=== PATIENT | female | born 1985 | race Caucasian/White ===

== ENCOUNTER 2016-10-01 20:22 | Inpatient (IN) | payer OTHER ==
[2016-10-01] MEDS ORDERED: SODIUM CHLORIDE 1,000 ML IV STA (20:40)
[2016-10-01] MEDS ORDERED: KETOROLAC TROMETHAMINE 30 MG/1 ML VIAL IVPUSH ONE (20:40)
--- NOTE | 2016-10-01 20:43 | PDOC ---
History of Present Illness - History of Present Illness Initial Comments: 10/01/16 20:43 Patient is a 31 year old female with significant medical hx of myocardial bridge who is presenting to the ED with constant, severe lower abdominal pain since she woke up this morning. The patient reports that her pain exists at all times and worsens with movement. She describes her pain as "excruciating" and is non-radiating. The patient also endorses nausea and several episodes of vomiting. Patient denies fever, chills, diarrhea, blood in stool, or black stools. The patient recently had a wisdom tooth extracted and has been taking antibiotics and prescribed pain relievers since her surgery, including Motrin and Vicodin. The patient has a history of six miscarriages and IVF (05/2016) that included freezing her embryos. She endorses having many gynecological evaluations. <Lulu Rhodes - Last Filed: 10/01/16 21:00> <Neymar Soaers - Last Filed: 10/02/16 03:34> - General Chief Complaint: Pain Stated Complaint: VOMITING, ABD PAIN Time Seen by Provider: 10/01/16 20:26 Past History <Lulu Rhodes - Last Filed: 10/01/16 21:00> - Surgical History Abdominal Surgery: Yes (HERNIA REPAIR) - Reproductive History (#): 2 - Immunization History Immunization Up to Date: No - Psycho/Social/Smoking Cessation Hx Anxiety: No Suicidal Ideation: No Smoking Status: No Smoking History: Current every day smoker Have you smoked in the past 12 months: Yes Number of Cigarettes Smoked Daily: 20 Information on smoking cessation initiated: Yes 'Breaking Loose' booklet given: 10/01/16 Hx Alcohol Use: (rare) <Neymar Soares - Last Filed: 10/02/16 03:34> - Past Medical History Allergies/Adverse Reactions: Allergies Allergy/AdvReac Type Severity Reaction Status Date / Time No Known Allergies Allergy Verified 04/05/14 20:03 Home Medications: Ambulatory Orders No Home Medications 0 dose .ROUTE UTDICT 03/03/13 Amoxicillin/Potassium Clav [Augmentin 875-125 Tablet] 1 each PO BID #20 tablet 10/01/16 Metronidazole [Flagyl -] 500 mg PO TID #30 tablet 10/01/16 Review of Systems - Review of Systems Comments:: 10/01/16 20:48 GENERAL/CONSTITUTIONAL: No fever or chills. No weakness. HEAD, EYES, EARS, NOSE AND THROAT: No change in vision. No ear pain or discharge. No sore throat. CARDIOVASCULAR: No chest pain or shortness of breath. GASTROINTESTINAL: Lower abdominal pain, nausea, vomiting. No diarrhea or constipation. MUSCULOSKELETAL: No joint or muscle swelling or pain. No neck or back pain. SKIN: No rash NEUROLOGIC: No headache, vertigo, loss of consciousness, or change in strength/ sensation. <Lulu Rhodes - Last Filed: 10/01/16 21:00> *Physical Exam - Vital Signs Last Vital Signs Temp Pulse Resp BP Pulse Ox 100.5 F H 102 H 20 122/64 98 10/01/16 20:22 10/01/16 20:22 10/01/16 20:22 10/01/16 20:22 10/01/16 20:22 <Lulu Rhodes - Last Filed: 10/01/16 21:00> - Vital Signs Last Vital Signs Temp Pulse Resp BP Pulse Ox 100.5 F H 102 H 20 122/64 98 10/01/16 20:22 10/01/16 20:22 10/01/16 20:22 10/01/16 20:22 10/01/16 20:22 - Physical Exam General Appearance: Yes: Nourished, Appropriately Dressed. No: Apparent Distress HEENT: positive: Normal ENT Inspection Respiratory/Chest: positive: Lungs Clear, Normal Breath Sounds. negative: Respiratory Distress Cardiovascular: positive: Regular Rhythm, Regular Rate, Tachycardia Gastrointestinal/Abdominal: positive: Normal Bowel Sounds, Tender (SUPRAPUBIC AND LLQ. +REBOUND NO GUARDING), Soft, Other (NO ROVSING'S. NO PSOAS/OBTURATOR) Extremity: positive: Normal Capillary Refill Integumentary: positive: Normal Color Neurologic: positive: Fully Oriented, Alert, Normal Mood/Affect, Normal Response , Motor Strength 5/5 <Neymar Soares - Last Filed: 10/02/16 03:34> ED Treatment Course - LABORATORY CBC & Chemistry Diagram: 10/01/16 20:44 10/01/16 20:44 <Lulu Rhodes - Last Filed: 10/01/16 21:00> - LABORATORY CBC & Chemistry Diagram: 10/01/16 20:44 10/01/16 20:44 - RADIOLOGY Radiology Studies Ordered: Category Date Time Status ABDOMEN & PELVIS CT W/O CONTR [CT] Stat CT Scan 10/01/16 20:40 Ordered <Neymar Soares - Last Filed: 10/02/16 03:34> Progress Note - Progress Note Progress Note: DIVERTICULITIS W/O PERF OR ABSCESS WBC 20K PT FEELS BETTER. KARTHIKEYAN PO. WANTS TO GO HOME AND WILL SEE DR. TOMLINSON ON TUESDAY OR RETURN PRN 12:38 AM PT RETURNS C/O VOMITING. WILL ADMIT FOR PAIN CONTROL, ABX, AND IVF 1:32 [address]NABLE TO CONTACT DR[address] TOMLINSON. PT ADMITTED TO HOSPITALIST SERVICE (DR. GALLO) 3:[address] TOMLINSON CALLED AND ASSUMED CARE OF PATIENT HOSPITALIST INFORMED <Neymar Soares - Last Filed: 10/02/16 03:34> *DC/Admit/Observation/Transfer - Attestations Scribe Attestion: 10/01/16 20:49 Documentation prepared by Lulu Rhodes, acting as medical records manager for Neymar Soares MD. <Lulu Rhodes - Last Filed: 10/01/16 21:00> - Discharge Dispostion Admit: Yes <Neymar Soares - Last Filed: 10/02/16 03:34> Diagnosis at time of Disposition: Diverticulitis Qualifiers: Diverticulitis site: large intestine Diverticulitis bleeding: without bleeding Diverticulitis complication: without perforation or abscess Qualified Code(s): K57.32 - Diverticulitis of large intestine without perforation or abscess without bleeding - Discharge Dispostion Condition at time of disposition: Improved - Prescriptions - Patient Instructions - Post Discharge Activity
[2016-10-01] MEDS ORDERED: KETOROLAC TROMETHAMINE 30 MG/1 ML VIAL ONE (20:48)
[2016-10-01 20:57] LABS: MCH 31.5 pg (25.7-33.7); MCHC 35.5 g/dl (32.0-36.0); MEAN CELL VOLUME 88.9 fl (80-96); MEAN PLT VOLUME 10.1 fl (7.5-11.1); PLATELET COUNT 280 K/MM3 (134-434); RDW 11.3 % (11.6-15.6); WHITE BLOOD COUNT 21.6 K/mm3 (4.0-10.0)
[2016-10-01 21:03] LABS: CALCIUM 9.4 mg/dl (8.4-10.2); CREATININE 0.8 mg/dl (0.6-1.3)
[2016-10-01] MEDS ORDERED: metroNIDAZOLE 250 MG TABLET ONE (22:34)
[2016-10-01] MEDS ORDERED: AMOX TR/POT CLAV 875MG/125MG TABLETS (FP) ONE (22:34)
[2016-10-01] MEDS ORDERED: AMOX TR/POT CLAV 875MG/125MG TABLETS (FP) PO ONE (22:34)
[2016-10-01] MEDS ORDERED: metroNIDAZOLE 250 MG TABLET PO ONE (22:34)
[2016-10-02] MEDS ORDERED: ONDANSETRON 4 MG/2 ML VIAL IVPUSH ONE (00:54)
[2016-10-02] MEDS ORDERED: SODIUM CHLORIDE 1,000 ML IV STA (00:54)
[2016-10-02] MEDS ORDERED: PIPERACILLIN/TAZOB 3.375 GM/50 ML PRE-DOCKED IV ONE (00:55)
[2016-10-02] MEDS ORDERED: PIPERACILLIN/TAZOBACTAM 3.375 GM VIAL IVPB ONE (01:08)
[2016-10-02] MEDS ORDERED: ONDANSETRON 4 MG/2 ML VIAL ONE (01:08)
[2016-10-02] MEDS ORDERED: ACETAMINOPHEN INJECTION 100 ML IVPB ONE (01:45)
[2016-10-02] MEDS ORDERED: ACETAMINOPHEN 1000 MG/100 ML VIAL (NON FORMULARY) IVPB ONE (01:49)
[2016-10-02] MEDS ORDERED: HYDROmorphone HCL CARPU-JECT 1 MG/1 ML DISP.SYRIN IVPUSH PRN (03:27)
[2016-10-02] MEDS ORDERED: ACETAMINOPHEN 325 MG TABLET (FP) PO PRN (03:27)
[2016-10-02] MEDS: D5-1/2NS+20 MEQ KCL - 1,000 ML IV SCH (04:00)
[2016-10-02 04:23] VITALS: BMI 37.8
[2016-10-02 07:15] LABS: PH,URINE 6.5 (4.5-8); URINE BILIRUBIN Negative (NEGATIVE); URINE BLOOD Negative (NEGATIVE); URINE GLUCOSE (UA) Negative (NEGATIVE); URINE KETONE Negative (NEGATIVE); URINE NITRITE Negative (NEGATIVE); URINE PROTEIN Negative (NEGATIVE); URINE UROBILINOGEN 0.2 E.U/dl (0.2-1.0)
[2016-10-02 07:16] LABS: URINE APPEARANCE SL CLOUDY; URINE COLOR AMBER; URINE LEUK ESTERASE 1+ (NEGATIVE)
[2016-10-02 07:53] LABS: BASOPHIL 0.2 % (0-2.0); EOSINOPHIL 0.7 % (0-4.5); MCH 31.9 pg (25.7-33.7); MCHC 35.5 g/dl (32.0-36.0); MEAN CELL VOLUME 89.8 fl (80-96); MEAN PLT VOLUME 8.7 fl (7.5-11.1); NEUTROPHILS 77.8 % (42.8-82.8); PLATELET COUNT 207 K/MM3 (134-434); RDW 11.1 % (11.6-15.6); WHITE BLOOD COUNT 15.2 K/mm3 (4.0-10.0)
[2016-10-02] MEDS: PIPERACILLIN/TAZOB 3.375 GM/50 ML PRE-DOCKED IVPB SCH ×2 (10:16→17:15)
[2016-10-02] MEDS: METRONIDAZOLE 500 MG PREMIXED 100 ML IVPB SCH ×3 (10:16→21:04)
[2016-10-02] MEDS: HEPARIN NA (PORCINE) 5,000 UNITS/ML 1ML VIAL SQ SCH ×2 (10:16→21:04)
--- NOTE | 2016-10-02 11:02 | PN ---
Progress Note, Physician History of Present Illness: 31 year old female with significant medical hx of myocardial bridge who is presenting to the ED with constant, severe lower abdominal pain since she woke up this morning. The patient reports that her pain exists at all times and worsens with movement. She describes her pain as "excruciating" and is non- radiating. The patient also endorses nausea and several episodes of vomiting. Patient denies fever, chills, diarrhea, blood in stool, or black stools. - Current Medication List Current Medications: Active Medications Acetaminophen (Tylenol -) 650 mg PO Q4H PRN PRN Reason: FEVER OR PAIN Heparin Sodium (Porcine) (Heparin -) 5,000 unit SQ BID [facility] Last Admin: 10/02/16 10:16 Dose: 5,000 unit Hydromorphone HCl (Dilaudid Injection -) 1 mg IVPUSH Q4H PRN PRN Reason: PAIN Last Admin: 10/02/16 10:14 Dose: 1 mg Potassium Chloride/Dextrose/Sod Cl (D5-1/2ns+20 Meq Kcl -) 1,000 mls @ 125 mls/ hr IV ASDIR [facility] Last Admin: 10/02/16 04:00 Dose: 125 mls/hr Metronidazole (Flagyl 500mg Premixed Ivpb -) 100 mls @ 100 mls/hr IVPB Q6H-IV [facility] Last Admin: 10/02/16 10:16 Dose: 100 mls/hr Piperacillin Sod/Tazobactam Sod (Zosyn 3.375gm Ivpb (Pre-Docked)) 3.375 gm IVPB Q8H-IV [facility] PRN Reason: Protocol Last Admin: 10/02/16 10:16 Dose: 3.375 gm - Objective Vital Signs: Vital Signs Temperature 99.3 F 10/02/16 03:28 Pulse Rate 94 H 10/02/16 03:28 Respiratory Rate 18 10/02/16 03:28 Blood Pressure 94/62 10/02/16 03:28 O2 Sat by Pulse Oximetry (%) 95 10/02/16 09:09 Labs: CBC, BMP 10/02/16 07:47
--- NOTE | 2016-10-02 11:10 | HP ---
Admitting History and Physical - Admission History of Present Illness: 31 year old female with significant medical hx of myocardial bridge who is presenting to the ED with constant, severe lower abdominal pain since she woke up this morning. The patient reports that her pain exists at all times and worsens with movement. She describes her pain as "excruciating" and is non- radiating. The patient also endorses nausea and several episodes of vomiting. Patient denies fever, chills, diarrhea, blood in stool, or black stools. This am pt with less pain - Past Medical History Cardiovascular: No: HTN, Pulmonary Hypertension Pulmonary: No: Cancer, COPD Gastrointestinal: No: Constipation, Crohn's Disease, Diverticulitis ...LMP: 09/21/16 - Smoking History Smoking history: Current every day smoker Have you smoked in the past 12 months: Yes Aproximately how many cigarettes per day: 20 - Alcohol/Substance Use Hx Alcohol Use: (rare) Home Medications - Allergies Allergies/Adverse Reactions: Allergies Allergy/AdvReac Type Severity Reaction Status Date / Time No Known Allergies Allergy Verified 04/05/14 20:03 - Home Medications Home Medications: Ambulatory Orders No Home Medications 0 dose .ROUTE UTDICT 03/03/13 Amoxicillin/Potassium Clav [Augmentin 875-125 Tablet] 1 each PO BID #20 tablet 10/01/16 Metronidazole [Flagyl -] 500 mg PO TID #30 tablet 10/01/16 Review of Systems - Review of Systems Cardiovascular: reports: No Symptoms Respiratory: reports: No Symptoms Gastrointestinal: reports: Abdominal Pain, Nausea, Vomiting. denies: Constipation, Diarrhea Physical Examination Vital Signs: Vital Signs Temperature 99.3 F 10/02/16 03:28 Pulse Rate 94 H 10/02/16 03:28 Respiratory Rate 18 10/02/16 03:28 Blood Pressure 94/62 10/02/16 03:28 O2 Sat by Pulse Oximetry (%) 95 10/02/16 09:09 Cardiovascular: Yes: Regular Rate and Rhythm Respiratory: Yes: Regular, CTA Bilaterally Gastrointestinal: Yes: Normal Bowel Sounds, Soft, Tenderness Labs: CBC, BMP 10/02/16 07:47 Imaging - Results Cat Scan: Report Reviewed Problem List - Problems (1) Diverticulitis of intestine with perforation Assessment/Plan: IV ABX ID CONSULT SURGICAL CONSULT--DR ROSA INPUT APPRECIATED--NO SURGICAL INTERVENTION AT THIS TIME NPO IVF Code(s): K57.80 - DVTRCLI OF INTEST, PART UNSP, W PERF AND ABSCESS W/O BLEED
--- NOTE | 2016-10-02 14:27 | CONS ---
SURGICAL CONSULTATION DATE OF CONSULTATION: 10/02/2016 REASON FOR REFERRAL: Diverticulitis. REFERRING PHYSICIAN: Jacquie Moscoso MD BRIEF HISTORY: This is a 31-year-old female who presented to the emergency room with acute onset of left-sided lower abdominal pain at the time of wakening. The patient underwent a CAT scan of the abdomen and pelvis. CT demonstrated findings consistent with diverticulitis with suspected microperforation. No free free-air. No obvious free fluid as well. Currently, the patient states her pain is better. She is not nauseous at this time nor has she vomited. Her white count went from 21,000 at the time of admission to 15.2. Patient has had no fever since admission as well. PAST MEDICAL HISTORY: Significant for myocardial bridge. No hypertension or diabetes. PAST SURGICAL HISTORY. Patient has had left lower quadrant surgery (hernia repair, but not sure whether or not she had a piece of bowel removed as an infant). She has had multiple gynecologic procedures for in vitro fertilization. ALLERGIES: None. MEDICATIONS: Patient was on Augmentin at home as well as Flagyl. IMPRESSION: Acute diverticulitis with questionable microperforation. Patient appears to be doing well and stable surgically at this point. She has left lower quadrant tenderness with some mild guarding. No true rebound. PLAN: 1. I would recommend no acute surgical intervention at this time; however, will need to continue to monitor this patient closely. 2. Patient should undergo medical treatment with bowel rest, IV antibiotics. I think to be conservative, she should be treated for a full 5 days with IV antibiotics and left n.p.o. at least for the next 2-3 days. 3. I will continue to evaluate this patient on a daily basis, and once I think she has improved enough to start on diet, we will do so. 4. She is also noted to be mildly hyponatremic. Her electrolytes could be corrected via the IV fluid. Thank you for allowing me to present the care of your patient. Should you have any questions, please feel free to give me a call directly. TATO ROSA M.D. [id number] cc: Jacquie Moscoso MD [facility]
[2016-10-02] MEDS: ONDANSETRON 4 MG/2 ML VIAL IVPUSH PRN (17:15)
[2016-10-02] MEDS: ACETAMINOPHEN 1000 MG/100 ML VIAL (NON FORMULARY) IVPB PRN (23:23)
[2016-10-03] MEDS: PIPERACILLIN/TAZOB 3.375 GM/50 ML PRE-DOCKED IVPB SCH (02:00)
[2016-10-03] MEDS: METRONIDAZOLE 500 MG PREMIXED 100 ML IVPB SCH (03:17)
[2016-10-03] MEDS: D5-1/2NS+20 MEQ KCL - 1,000 ML IV SCH ×2 (03:18→10:37)
[2016-10-03] MEDS: ONDANSETRON 4 MG/2 ML VIAL IVPUSH PRN ×2 (06:12→21:32)
--- NOTE | 2016-10-03 08:05 | PN ---
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
[2016-10-03 08:11] LABS: BASOPHIL 0.5 % (0-2.0); EOSINOPHIL 2.1 % (0-4.5); MCH 31.3 pg (25.7-33.7); MCHC 34.5 g/dl (32.0-36.0); MEAN CELL VOLUME 90.7 fl (80-96); MEAN PLT VOLUME 10.1 fl (7.5-11.1); NEUTROPHILS 73.3 % (42.8-82.8); PLATELET COUNT 206 K/MM3 (134-434); RDW 11.4 % (11.6-15.6); WHITE BLOOD COUNT 14.8 K/mm3 (4.0-10.0)
[2016-10-03 08:17] LABS: ALBUMIN 3.4 g/dl (3.5-5.0); ALK PHOS 47 U/L (32-92); ANION GAP 6 (8-16); BILIRUBIN,TOTAL 0.6 mg/dl (0.2-1.0); CALCIUM 8.3 mg/dl (8.4-10.2); CO2 20 mmol/L (22-28); CREATININE 0.8 mg/dl (0.6-1.3); GLUCOSE,RANDOM 99 mg/dl (74-106); SGOT/AST 14 U/L (10-42); SGPT/ALT 11 U/L (10-40); TOT PROT 5.9 g/dl (6.4-8.3)
[2016-10-03] MEDS: PIPERACILLIN/TAZOB 4.5 GM/100 ML PRE-DOCKED IVPB SCH ×2 (10:37→17:23)
[2016-10-03] MEDS: HEPARIN NA (PORCINE) 5,000 UNITS/ML 1ML VIAL SQ SCH ×2 (10:37→21:33)
--- NOTE | 2016-10-03 11:07 | PN ---
Progress Note, Physician History of Present Illness: 31 year old female with significant medical hx of myocardial bridge who is presenting to the ED with constant, severe lower abdominal pain since she woke up this morning. The patient reports that her pain exists at all times and worsens with movement. She describes her pain as "excruciating" and is non- radiating. The patient also endorses nausea and several episodes of vomiting. Patient denies fever, chills, diarrhea, blood in stool, or black stools. less pain today - Current Medication List Current Medications: Active Medications Acetaminophen (Tylenol -) 650 mg PO Q4H PRN PRN Reason: FEVER OR PAIN Acetaminophen (Ofirmev Injection -) 1,000 mg IVPB Q6H PRN Last Admin: 10/02/16 23:23 Dose: 1,000 mg Heparin Sodium (Porcine) (Heparin -) 5,000 unit SQ BID [facility] Last Admin: 10/03/16 10:37 Dose: 5,000 unit Hydromorphone HCl (Dilaudid Injection -) 1 mg IVPUSH Q4H PRN PRN Reason: PAIN Last Admin: 10/02/16 10:14 Dose: 1 mg Potassium Chloride/Dextrose/Sod Cl (D5-1/2ns+20 Meq Kcl -) 1,000 mls @ 100 mls/ hr IV ASDIR [facility] Last Admin: 10/03/16 10:37 Dose: 100 mls/hr Ondansetron HCl (Zofran Injection) 4 mg IVPUSH Q6H PRN PRN Reason: NAUSEA AND/OR VOMITING Last Admin: 10/03/16 06:12 Dose: 4 mg Piperacillin Sod/Tazobactam Sod (Zosyn 4.5gm Ivpb (Pre-Docked)) 4.5 gm IVPB Q8H -IV [facility] Last Admin: 10/03/16 10:37 Dose: 4.5 gm - Objective Vital Signs: Vital Signs Temperature 98.6 F 10/03/16 06:00 Pulse Rate 84 10/03/16 06:00 Respiratory Rate 18 10/03/16 06:00 Blood Pressure 100/58 10/03/16 06:00 O2 Sat by Pulse Oximetry (%) 96 10/03/16 06:00 Cardiovascular: Yes: Regular Rate and Rhythm Respiratory: Yes: Regular, CTA Bilaterally Gastrointestinal: Yes: Tenderness (less) Labs: CBC, BMP 10/03/16 06:10 10/03/16 06:10 Problem List - Problems (1) Diverticulitis of intestine with perforation Assessment/Plan: IV ABX ID CONSULT NOTED SURGICAL CONSULT--DR ROSA INPUT APPRECIATED--NO SURGICAL INTERVENTION AT THIS TIME NPO IVF Code(s): K57.80 - DVTRCLI OF INTEST, PART UNSP, W PERF AND ABSCESS W/O BLEED (2) Tobacco abuse Assessment/Plan: counseling done Code(s): Z72.0 - TOBACCO USE
[2016-10-03] MEDS: ACETAMINOPHEN 1000 MG/100 ML VIAL (NON FORMULARY) IVPB PRN (15:45)
[2016-10-03] MEDS ORDERED: PT OWN MED DRAWER 7, Y5N ONE ×2 (17:02→21:27)
--- NOTE | 2016-10-03 23:46 | CONS ---
DATE OF CONSULTATION: DATE OF DICTATION: 10/03/2016 INFECTIOUS DISEASE CONSULTATION REQUESTING PHYSICIAN: Jacquie Moscoso M.D. CONSULTING PHYSICIAN: Tanya Morrow M.D. HISTORY OF PRESENT ILLNESS: This is a 31-year-old woman with a past medical history of myocardial bridge and mosaic carmona syndrome. She presented to the emergency room on Tuesday with a history of abdominal cramps and vomiting that started that morning. It was acute in onset and quite severe. She reported having the pain all the time with moving. She had had several episodes of vomiting. She at that point did not have any fevers or chills or diarrhea. The previous Tuesday had had 1 wisdom tooth removed, had been given amoxicillin which she was taking as well as pain medications which she reports to me is Tylenol and Motrin, to the ER doctor she said she was taking Vicodin as well. She reports she had had some constipation after taking her pain medications. There is no history of any recent travel. She had a CAT scan done in the emergency room that showed acute diverticulitis. It was suggested given her vomiting that she should be admitted, the patient wanted to go home, she was prescribed Augmentin and Flagyl. She got home, she continued to vomit, and she was admitted. She has been having some low grade fevers since admission as high as 100.9 last night. She reports improvement in her abdominal pain. She was seen by surgery with the recommendation to continue her medical management with IV antibiotics and bowel rest. She has no known drug allergies. MEDICATION: At home were the recent amoxicillin and the Motrin and Tylenol she was taking. She was started on Augmentin and Flagyl, which she really did not start, as she returned to the emergency room. PAST MEDICAL HISTORY: Notable for history of myocardial bridge, mosaic carmona syndrome. She has had 6 miscarriages. She has never had any surgery before. FAMILY HISTORY: Notable for mild diverticulitis in her mother and grandmother, and she thinks perhaps her grandmother had had colon cancer; she had a colonoscopy. SOCIAL HISTORY: She works in [place] at [employer]. She is a cigarette smoker. There is no history of any recent travel. REVIEW OF SYSTEMS: She has had several episodes of watery diarrhea yesterday morning, none during the day, and again today. She reports nausea, but she has stopped vomiting. She reports that her nausea was worse with the Flagyl. PHYSICAL EXAMINATION: Vital signs: Her current temperature is 98.6, T-max is 100.9, pulse of 84, blood pressure 100/58, respiratory rate 18. She is saturating 96% on room air . HEENT: Normocephalic. Eyes are anicteric. Neck: Supple. Lungs: Clear to auscultation. Heart: Regular rate and rhythm. Abdomen: Soft. She has some mild lower quadrant tenderness to deep palpation. She has good bowel sounds. Extremities: Without edema. LABORATORY: White count from yesterday has come down from the day before from 21 to 15.2, hemoglobin is 11.6, platelets of 207, today's labs are all pending, and BUN and creatinine were 11 and 0.8. Blood cultures are negative after 24 hours. CAT scan is notable for diverticulosis coli and acute diverticulitis in the mid colon with minimal extraluminal air and without any abscess. IMPRESSION: In summary, this is a 31-year-old woman with the history of mosaic Carmona syndrome and myocardial bridge, status post recent wisdom tooth extraction who now has acute diverticulitis. Would continue Zosyn as ordered. Will check a sedimentation rate and C-reactive protein . If she has further diarrhea, which appears to have stopped, would check her stools for Clostridium difficile. She is reporting a lot of nausea with the Flagyl. The piperacillin/tazobactam should be adequate diverticulitis coverage for both anaerobes as well as enteric gram negatives, so I would suggest we stop the Flagyl. Hopefully she will be more comfortable. Would check a sedimentation rate and C-reactive protein as well to follow. TANYA MORROW M.D. [id number]
[2016-10-04] MEDS: PIPERACILLIN/TAZOB 4.5 GM/100 ML PRE-DOCKED IVPB SCH ×3 (01:44→17:44)
[2016-10-04] MEDS: ACETAMINOPHEN 1000 MG/100 ML VIAL (NON FORMULARY) IVPB PRN (01:50)
[2016-10-04 08:50] LABS: BASOPHIL 0.5 % (0-2.0); EOSINOPHIL 3.5 % (0-4.5); MCH 31.3 pg (25.7-33.7); MCHC 34.5 g/dl (32.0-36.0); MEAN CELL VOLUME 90.5 fl (80-96); MEAN PLT VOLUME 9.5 fl (7.5-11.1); NEUTROPHILS 69.3 % (42.8-82.8); PLATELET COUNT 225 K/MM3 (134-434); RDW 11.4 % (11.6-15.6); WHITE BLOOD COUNT 11.5 K/mm3 (4.0-10.0)
--- NOTE | 2016-10-04 09:15 | PN ---
Progress Note (short form) - Note Progress Note: Patient seen and consult dictated. Patient with sigmoid diverticulitis which is improving clinically on antibiotics. Has no fever, improving WBC and less LLQ pain. To begin on clear liquid diet and monitor. If continues to improve, can advance diet slowly and consider switching to PO antibiotics. Will follow.
[2016-10-04 09:27] LABS: C-REACTIVE PROTEIN 14.3 MG/DL (0.00-0.3)
--- NOTE | 2016-10-04 09:52 | PN ---
Progress Note, Physician Chief Complaint: feeling much better today 3 loose bm( which is less than yesterday) wants to try water abdominal pain is also decreasing since yesterday - Current Medication List Current Medications: Active Medications Acetaminophen (Tylenol -) 650 mg PO Q4H PRN PRN Reason: FEVER OR PAIN Acetaminophen (Ofirmev Injection -) 1,000 mg IVPB Q6H PRN Last Admin: 10/04/16 01:50 Dose: 1,000 mg Heparin Sodium (Porcine) (Heparin -) 5,000 unit SQ BID [facility] Last Admin: 10/03/16 21:33 Dose: 5,000 unit Hydromorphone HCl (Dilaudid Injection -) 1 mg IVPUSH Q4H PRN PRN Reason: PAIN Last Admin: 10/02/16 10:14 Dose: 1 mg Potassium Chloride/Dextrose/Sod Cl (D5-1/2ns+20 Meq Kcl -) 1,000 mls @ 100 mls/ hr IV ASDIR [facility] Last Admin: 10/03/16 10:37 Dose: 100 mls/hr Ondansetron HCl (Zofran Injection) 4 mg IVPUSH Q6H PRN PRN Reason: NAUSEA AND/OR VOMITING Last Admin: 10/03/16 21:32 Dose: 4 mg Piperacillin Sod/Tazobactam Sod (Zosyn 4.5gm Ivpb (Pre-Docked)) 4.5 gm IVPB Q8H -IV [facility] Last Admin: 10/04/16 01:44 Dose: 4.5 gm - Objective Vital Signs: Vital Signs Temperature 97.9 F 10/04/16 06:00 Pulse Rate 77 10/04/16 06:00 Respiratory Rate 18 10/04/16 07:41 Blood Pressure 110/59 10/04/16 06:00 O2 Sat by Pulse Oximetry (%) 97 10/04/16 07:41 Constitutional: Yes: Calm Neck: Yes: Trachea Midline Cardiovascular: Yes: Regular Rate and Rhythm, S1, S2 Respiratory: Yes: CTA Bilaterally Gastrointestinal: Yes: Soft, Hypoactive Bowel Sounds, Tenderness (in LLQ) Edema: No Neurological: Yes: Alert, Oriented Labs: CBC, BMP 10/04/16 08:15 Problem List - Problems (1) Diverticulitis Assessment/Plan: on zosyn zofran for nausea c diff sent flagyl stopped bc patient was not able to tolerate it trial of clear liquid diet today walking in the room Code(s): K57.92 - DVTRCLI OF INTEST, PART UNSP, W/O PERF OR ABSCESS W/O BLEED Qualifiers: Diverticulitis site: large intestine Diverticulitis bleeding: without bleeding Diverticulitis complication: without perforation or abscess Qualified Code(s): K57.32 - Diverticulitis of large intestine without perforation or abscess without bleeding
[2016-10-04] MEDS: HEPARIN NA (PORCINE) 5,000 UNITS/ML 1ML VIAL SQ SCH ×2 (09:53→22:24)
[2016-10-04 09:56] LABS: ALBUMIN 3.4 g/dl (3.5-5.0); ALK PHOS 44 U/L (32-92); ANION GAP 6 (8-16); BILIRUBIN,TOTAL 0.5 mg/dl (0.2-1.0); CALCIUM 8.5 mg/dl (8.4-10.2); CO2 22 mmol/L (22-28); CREATININE 0.8 mg/dl (0.6-1.3); GLUCOSE,RANDOM 109 mg/dl (74-106); SGOT/AST 14 U/L (10-42); SGPT/ALT 10 U/L (10-40); TOT PROT 6.2 g/dl (6.4-8.3)
--- NOTE | 2016-10-04 10:51 | PN ---
Progress Note, Physician History of Present Illness: Reports less LLQ abdominal pain No N/V + Liquid BMs + low grade fever WBC improved - Current Medication List Current Medications: Active Medications Acetaminophen (Tylenol -) 650 mg PO Q4H PRN PRN Reason: FEVER OR PAIN Acetaminophen (Ofirmev Injection -) 1,000 mg IVPB Q6H PRN Last Admin: 10/04/16 01:50 Dose: 1,000 mg Heparin Sodium (Porcine) (Heparin -) 5,000 unit SQ BID [facility] Last Admin: 10/04/16 09:53 Dose: 5,000 unit Hydromorphone HCl (Dilaudid Injection -) 1 mg IVPUSH Q4H PRN PRN Reason: PAIN Last Admin: 10/02/16 10:14 Dose: 1 mg Potassium Chloride/Dextrose/Sod Cl (D5-1/2ns+20 Meq Kcl -) 1,000 mls @ 100 mls/ hr IV ASDIR [facility] Last Admin: 10/03/16 10:37 Dose: 100 mls/hr Ondansetron HCl (Zofran Injection) 4 mg IVPUSH Q6H PRN PRN Reason: NAUSEA AND/OR VOMITING Last Admin: 10/03/16 21:32 Dose: 4 mg Piperacillin Sod/Tazobactam Sod (Zosyn 4.5gm Ivpb (Pre-Docked)) 4.5 gm IVPB Q8H -IV [facility] Last Admin: 10/04/16 09:53 Dose: 4.5 gm - Objective Vital Signs: Vital Signs Temperature 97.9 F 10/04/16 06:00 Pulse Rate 77 10/04/16 06:00 Respiratory Rate 18 10/04/16 07:41 Blood Pressure 110/59 10/04/16 06:00 O2 Sat by Pulse Oximetry (%) 97 10/04/16 07:41 Constitutional: Yes: No Distress Eyes: Yes: Conjunctiva Clear Cardiovascular: Yes: Regular Rate and Rhythm, S1, S2 Respiratory: Yes: CTA Bilaterally Gastrointestinal: Yes: Normal Bowel Sounds, Soft, Tenderness (+ mild LLQ tenderness to palp) Edema: No Labs: CBC, BMP 10/04/16 08:15 10/04/16 08:15 Assessment/Plan Acute diverticulitis- improved + low grade fever/ leukocytosis Continue empiric zosyn
[2016-10-04] MEDS: D5-1/2NS+20 MEQ KCL - 1,000 ML IV SCH (12:00)
--- NOTE | 2016-10-04 14:26 | PN ---
Progress Note (short form) - Note Progress Note: surgery pt seen and examined. feels well. started on liquids. afebrile abd- soft, still mild llq tenderness, no rebound Plan- complicated diverticulitis. cont iv abx for 5 full days. would not advance diet until tenderness resolves. eventual colonoscopy and can consider elective resection after 6 weeks.
[2016-10-05] MEDS: PIPERACILLIN/TAZOB 4.5 GM/100 ML PRE-DOCKED IVPB SCH ×3 (01:45→17:32)
[2016-10-05] MEDS ORDERED: PT OWN MED DRAWER 7, Y5N ONE ×2 (09:29→17:28)
[2016-10-05] MEDS: HEPARIN NA (PORCINE) 5,000 UNITS/ML 1ML VIAL SQ SCH ×2 (09:34→22:25)
[2016-10-05] MEDS: D5-1/2NS+20 MEQ KCL - 1,000 ML IV SCH (10:30)
--- NOTE | 2016-10-05 10:36 | PN ---
Progress Note, Physician Chief Complaint: no nausea minimal abdominal pain wants to go home wants to advance diet - Current Medication List Current Medications: Active Medications Acetaminophen (Tylenol -) 650 mg PO Q4H PRN PRN Reason: FEVER OR PAIN Acetaminophen (Ofirmev Injection -) 1,000 mg IVPB Q6H PRN Last Admin: 10/04/16 01:50 Dose: 1,000 mg Heparin Sodium (Porcine) (Heparin -) 5,000 unit SQ BID COLLIN Last Admin: 10/05/16 09:34 Dose: 5,000 unit Potassium Chloride/Dextrose/Sod Cl (D5-1/2ns+20 Meq Kcl -) 1,000 mls @ 100 mls/ hr IV ASDIR COLLIN Last Admin: 10/04/16 12:00 Dose: 100 mls/hr Ondansetron HCl (Zofran Injection) 4 mg IVPUSH Q6H PRN PRN Reason: NAUSEA AND/OR VOMITING Last Admin: 10/03/16 21:32 Dose: 4 mg Piperacillin Sod/Tazobactam Sod (Zosyn 4.5gm Ivpb (Pre-Docked)) 4.5 gm IVPB Q8H -IV COLLIN Last Admin: 10/05/16 09:34 Dose: 4.5 gm - Objective Vital Signs: Vital Signs Temperature 97.9 F 10/05/16 04:00 Pulse Rate 86 10/05/16 04:00 Respiratory Rate 18 10/05/16 08:31 Blood Pressure 112/64 10/05/16 04:00 O2 Sat by Pulse Oximetry (%) 97 10/05/16 08:31 Constitutional: Yes: Calm Neck: Yes: Trachea Midline Cardiovascular: Yes: Regular Rate and Rhythm, S1, S2 Respiratory: Yes: CTA Bilaterally Gastrointestinal: Yes: Normal Bowel Sounds, Soft, Other (no tenderness on exam) Edema: No Neurological: Yes: Alert, Oriented Labs: CBC, BMP 10/04/16 08:15 10/04/16 08:15 Problem List - Problems (1) Diverticulitis Assessment/Plan: wbc count trending down advance to full liquid diet today on zosyn c diff sent flagyl stopped bc patient was not able to tolerate it patient wants to leave explained to patient that she should get all 3 abx doses tmw and then later in evening she can leave and will advance to regular diet tmw Code(s): K57.92 - DVTRCLI OF INTEST, PART UNSP, W/O PERF OR ABSCESS W/O BLEED Qualifiers: Diverticulitis site: large intestine Diverticulitis bleeding: without bleeding Diverticulitis complication: without perforation or abscess Qualified Code(s): K57.32 - Diverticulitis of large intestine without perforation or abscess without bleeding
--- NOTE | 2016-10-05 14:44 | CONS ---
DATE OF CONSULTATION: 10/04/2016 Asked to evaluate this 31-year-old female admitted with left lower quadrant pain and acute diverticulitis. The patient is a 31-year-old female admitted to the hospital on October 02 with a 1-2 day history of left lower quadrant pain and malaise. The patient has had no prior history of diverticulitis or colitis and apparently was doing well up until 1-2 days prior to admission. She was admitted with significant pain in the left lower quadrant and found to have a white count of 21.6 and a fever of 100.5. The patient underwent a CAT scan of the abdomen and pelvis which was consistent with sigmoid diverticulitis. There was no evidence of an abscess/collection. The patient was started on IV antibiotics and has slowly improved with her white count also improving to her current level of 11.5. Her hematocrit has remained relatively stable at 34.1. Her vital signs currently temperature is 97.9 with a T-max over the past 24 hours of 100. The patient states she feels better today with slight left lower quadrant pain to deep palpation but improved significantly from yesterday. She has no prior history of any similar illnesses, but believes that her mother may have had diverticulosis. PAST MEDICAL HISTORY: Also notable for a history of a myocardial bridge. PHYSICAL EXAMINATION: General: The patient is a well-developed, overweight female. HEENT: [place] conjunctivae. Lungs: Clear. Heart: Regular rate and rhythm. Abdomen: Soft. Normoactive bowel sounds and minimal discomfort to deep palpation in the left lower quadrant. Patient with acute diverticulitis involving the sigmoid colon. Doing well currently on IV Zosyn. White count improving and temperature curve also improving. At the present time, she has minimal left lower quadrant pain, and we will begin patient on a clear-liquid diet. If she continues to do well over the next 24 hours, diet can be slowly advanced and consideration for switching her to oral antibiotics. No indication for surgery or interventional radiology at the present time. We will follow as needed. IMANI MCCAIN M.D. ROBIN/[id number]
--- NOTE | 2016-10-05 15:42 | PN ---
Progress Note (short form) - Note Progress Note: surgery pt seen and examined. feels well. on full liquids. afebrile abd- soft, llq tenderness nearly resolved, no rebound Plan- complicated diverticulitis. cont iv abx for 5 full days. can discharge tomorrow on po abx and low residue for 1 week than regular diet. eventual colonoscopy and can consider elective resection after 6 weeks.
[2016-10-06] MEDS: PIPERACILLIN/TAZOB 4.5 GM/100 ML PRE-DOCKED IVPB SCH ×3 (01:28→17:52)
--- NOTE | 2016-10-06 07:48 | DS ---
Physical Examination Vital Signs: Vital Signs Temperature 98.5 F 10/06/16 04:00 Pulse Rate 84 10/06/16 04:00 Respiratory Rate 20 10/06/16 04:00 Blood Pressure 96/57 10/06/16 04:00 O2 Sat by Pulse Oximetry (%) 96 10/06/16 05:34 Cardiovascular: Yes: Regular Rate and Rhythm Respiratory: Yes: Regular, CTA Bilaterally Gastrointestinal: Yes: Normal Bowel Sounds, Soft. No: Tenderness Labs: CBC, BMP 10/04/16 08:15 10/04/16 08:15 Discharge Summary Reason For Visit: DIVERTICULITIS Current Active Problems Diverticulitis (Acute) Diverticulitis of intestine with perforation (Acute) Tobacco abuse (Acute) Hospital Course: 31 year old female with significant medical hx of myocardial bridge who is presenting to the ED with constant, severe lower abdominal pain since she woke up this morning. The patient reports that her pain exists at all times and worsens with movement. She describes her pain as "excruciating" and is non- radiating. The patient also endorses nausea and several episodes of vomiting. Patient denies fever, chills, diarrhea, blood in stool, or black stools. This am pt with less pain - Past Medical History Cardiovascular: No: HTN, Pulmonary Hypertension Pulmonary: No: Cancer, COPD Gastrointestinal: No: Constipation, Crohn's Disease, Diverticulitis ...LMP: 09/21/16 - Smoking History Smoking history: Current every day smoker - Problems (1) Diverticulitis of intestine with perforation Assessment/Plan: IV ABX--TO PO TODAY ID CONSULT NOTED SURGICAL CONSULT--DR ROSA INPUT APPRECIATED--NO SURGICAL INTERVENTION AT THIS TIME ADVANCE DIET CLOSE MONITORING DC HOME IF CLEARED BY ID AND SURGERY Code(s): K57.80 - DVTRCLI OF INTEST, PART UNSP, W PERF AND ABSCESS W/O BLEED (2) Tobacco abuse Assessment/Plan: counseling done Code(s): Z72.0 - TOBACCO USE Condition: Improved - Instructions Diet, Activity, Other Instructions: TAKE MEDICATIONS PRESCRIBED CLEAR LIQUID DIET FOR 3 DAYS IBUPROFEN 600 MG 4 TIMES A DAY FOR PAIN VICODIN NOT RECOMMENDED TAKE ANTIBIOTICS PRESCRIBED SEE DR. TOMLINSON TUESDAY RETURN IF SEVERE PAIN, VOMITING, OR NEW SYMPTOMS Referrals: Jacquie Tomlinson MD [Staff Physician] - 1 Week Disposition: HOME - Home Medications Comprehensive Discharge Medication List: Ambulatory Orders No Home Medications 0 dose .ROUTE UTDICT 03/03/13 Amoxicillin/Potassium Clav [Augmentin 875-125 Tablet] 1 each PO BID #20 tablet 10/06/16
[2016-10-06 09:12] LABS: BASOPHIL 0.9 % (0-2.0); EOSINOPHIL 4.3 % (0-4.5); MCH 30.6 pg (25.7-33.7); MCHC 33.5 g/dl (32.0-36.0); MEAN CELL VOLUME 91.3 fl (80-96); MEAN PLT VOLUME 10.2 fl (7.5-11.1); NEUTROPHILS 69.1 % (42.8-82.8); PLATELET COUNT 285 K/MM3 (134-434); RDW 11.1 % (11.6-15.6)
[2016-10-06 09:20] LABS: ALBUMIN 3.9 g/dl (3.5-5.0); ALK PHOS 54 U/L (32-92); ANION GAP 10 (8-16); CALCIUM 9.8 mg/dl (8.4-10.2); CO2 25 mmol/L (22-28); CREATININE 0.8 mg/dl (0.6-1.3); GLUCOSE,RANDOM 102 mg/dl (74-106); SGOT/AST 19 U/L (10-42); SGPT/ALT 15 U/L (10-40); TOT PROT 7.2 g/dl (6.4-8.3)
--- NOTE | 2016-10-06 09:48 | PN ---
Progress Note (short form) - Note Progress Note: Patient feels better with minimal abdominal discomfort/occasional cramp. No fever, chills, N/V. Tolerating full liquid diet and remains on IV antibiotics. Labs notable for WBC=12K (no change) VSS Afebrile Abdomen soft obese nontender except to deep palpation LLQ. Patient anxious for discharge home and diet/management reviewed with patient. To advance to soft diet and if tolerated would keep on low residue diet x 3 weeks. Agree with plans for PO antibiotics and discharge if stable. Will follow as outpatient.
[2016-10-06 09:49] LABS: BILIRUBIN,TOTAL < 0.3 mg/dl (0.2-1.0)
[2016-10-06] MEDS: HEPARIN NA (PORCINE) 5,000 UNITS/ML 1ML VIAL SQ SCH (09:54)
[2016-10-06] MEDS: D5-1/2NS+20 MEQ KCL - 1,000 ML IV SCH (09:54)
--- NOTE | 2016-10-06 09:59 | PN ---
Progress Note, Physician History of Present Illness: OOb in chair No c/o abdominal pain No N/V Tolerating diet Temps down- afebrile WBC slightly elevated - Current Medication List Current Medications: Active Medications Acetaminophen (Tylenol -) 650 mg PO Q4H PRN PRN Reason: FEVER OR PAIN Acetaminophen (Ofirmev Injection -) 1,000 mg IVPB Q6H PRN Last Admin: 10/04/16 01:50 Dose: 1,000 mg Heparin Sodium (Porcine) (Heparin -) 5,000 unit SQ BID COLLIN Last Admin: 10/06/16 09:54 Dose: Not Given Potassium Chloride/Dextrose/Sod Cl (D5-1/2ns+20 Meq Kcl -) 1,000 mls @ 100 mls/ hr IV ASDIR COLLIN Last Admin: 10/06/16 09:54 Dose: 100 mls/hr Ondansetron HCl (Zofran Injection) 4 mg IVPUSH Q6H PRN PRN Reason: NAUSEA AND/OR VOMITING Last Admin: 10/03/16 21:32 Dose: 4 mg Piperacillin Sod/Tazobactam Sod (Zosyn 4.5gm Ivpb (Pre-Docked)) 4.5 gm IVPB Q8H -IV COLLIN Last Admin: 10/06/16 09:54 Dose: 4.5 gm - Objective Vital Signs: Vital Signs Temperature 98.5 F 10/06/16 04:00 Pulse Rate 84 10/06/16 04:00 Respiratory Rate 20 10/06/16 04:00 Blood Pressure 96/57 10/06/16 04:00 O2 Sat by Pulse Oximetry (%) 96 10/06/16 07:44 Constitutional: Yes: No Distress Eyes: Yes: Conjunctiva Clear Cardiovascular: Yes: Regular Rate and Rhythm, S1, S2 Respiratory: Yes: CTA Bilaterally Gastrointestinal: Yes: Normal Bowel Sounds, Soft Edema: No Labs: CBC, BMP 10/06/16 08:30 10/06/16 08:30 Assessment/Plan Acute diverticulitis- improved Substitute po antibiotic therapy with Augmentin Outpatient GI followup
[2016-10-06 14:16] VITALS: BP 98/59; PULSE 82; TEMP 98.2
== END 2016-10-06 18:40 | disposition home or self-care (01) | DRG 392 ==
LOC: FER 20:22 → FM/S 10-02 01:48
PROVIDERS: ADMIT Family Medicine; ATTEND Family Medicine
DX: K57.20 Diverticulitis of large intestine with perforation and abscess without bleeding (principal); F17.210 Nicotine dependence, cigarettes, uncomplicated; D72.829 Elevated white blood cell count, unspecified
CPT/HCPCS: 36415; 74020-TC; 74176-TC; 80048; 80053; 81003; 81015; 84703; 85025; 85651; 86140; 87040; 87493; 99284-25; J1644

== ENCOUNTER 2016-10-08 13:18 | Inpatient (IN) | payer OTHER ==
[2016-10-08 13:33] VITALS: BMI 36.1
--- NOTE | 2016-10-08 14:53 | PDOC ---
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 Patient reports that the pain that she is experiencing presently is not like the pain she had on 10/01/16 that was on her left lower quadrant this pain is across her lower abdomen from one side to the other and is of a spasming in nature causing her to bend over. Patient presently does not have any lower abdominal pain. Patient has been taking Augmentin since her discharge along with ibuprofen for pain. Patient reports that initially ibuprofen was helping with the pain however it has gotten worse and is not controlled by ibuprofen. She also having multiple miscarriages in the past. Patient denies any urinary symptoms no hematuria, urgency or frequency. Patient denies any chills. He upset does not want to be in the emergency room presently. Sent here by Dr. Moscoso her primary care provider for evaluation for week current diverticulitis. 10/08/16 17:19 Timing/Duration: reports: intermittent Quality: reports: cramping (across lower abdomen intermittent getting worse since discharge from [facility]) Abdominal Pain Onset Location: reports: other (across lower abdomen) Pain Radiation: reports: no radiation Activities at Onset: reports: no specific activity Treatment Prior to Arrive: improves with: analgesics (ibuprofen b) Past History - Past Medical History Allergies/Adverse Reactions: Allergies Allergy/AdvReac Type Severity Reaction Status Date / Time No Known Allergies Allergy Verified 10/08/16 13:28 Home Medications: Ambulatory Orders Amoxicillin/Potassium Clav [Augmentin 875-125 Tablet] 1 each PO BID #20 tablet 10/06/16 Cardiac Disorders: Yes (myocardial bridge) GI Disorders: Yes (DIVERTICULITIS) Other medical history: h/o Mosacic Paulson Syndrome - Surgical History Abdominal Surgery: Yes (HERNIA REPAIR) - Reproductive History (#): 2 - Immunization History Immunization Up to Date: No - Psycho/Social/Smoking Cessation Hx Anxiety: No Suicidal Ideation: No Smoking Status: No Smoking History: Current some day smoker Have you smoked in the past 12 months: Yes Number of Cigarettes Smoked Daily: 20 Information on smoking cessation initiated: No 'Breaking Loose' booklet given: 10/01/16 Hx Alcohol Use: (rare) Drug/Substance Use Hx: Yes (last use 1 week ago) Substance Use Type: Marijuana Review of Systems - Review of Systems Able to Perform ROS?: Yes HEENTM: No: Symptoms Reported Respiratory: No: Symptoms reported Cardiac (ROS): No: Symptoms Reported ABD/GI: Yes: Abdominal cramping (across lower abdomen intermittent getting worse since discharge on 10/06/16 from [facility] for diverticulitis ), Other (last BM slightly formed brown yesterday). No: Blood Streaked Bowels, Constipated, Diarrhea, Difficulty Swallowing, Nausea, Poor Appetite, Rectal Bleeding, Vomiting, Indigestion, Tarry Stools : No: Symptoms Reported Musculoskeletal: No: Symptoms Reported Integumentary: No: Symptoms Reported Neurological: No: Symptoms reported *Physical Exam - Vital Signs Last Vital Signs Temp Pulse Resp BP Pulse Ox 98.1 F 83 17 100/59 98 10/08/16 13:28 10/08/16 13:28 10/08/16 13:28 10/08/16 13:28 10/08/16 13:28 - Physical Exam General Appearance: Yes: Appropriately Dressed Respiratory/Chest: positive: Lungs Clear, Normal Breath Sounds. negative: Chest Tender, Respiratory Distress Cardiovascular: positive: Regular Rhythm, Regular Rate, S1, S2 Gastrointestinal/Abdominal: positive: Normal Bowel Sounds, Soft. 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 Patient reports that the pain that she is experiencing presently is not like the pain she had on 10/01/16 that was on her left lower quadrant this pain is across her lower abdomen from one side to the other and is of a spasming in nature causing her to bend over. Patient presently does not have any lower abdominal pain. Patient has been taking Augmentin since her discharge along with ibuprofen for pain. Patient reports that initially ibuprofen was helping with the pain however it has gotten worse and is not controlled by ibuprofen. She also having multiple miscarriages in the past. Patient denies any urinary symptoms no hematuria, urgency or frequency. Patient denies any chills. He upset does not want to be in the emergency room presently. Sent here by Dr. Moscoso her primary care provider for evaluation for week current diverticulitis. r/o recurrent diverticulitis PT TO BE ADMITTED PLAN: IV insert NS 0.9 % 500 ml bolus cbc with diff cmp blood cultures urinalysis urine c & S lactic acid urine hcg negative CT of abdomen/pelvis without contrast finding consistent with diverticulosis coli and mid sigmoid Acute diverticulosis with extraluminal air and a collection /abscess measuring 5.75 cm with significant stranding edema in the surrounding mesentery per Dr. Roddy Moscoso informed of above results along with elevated white blood count he recommended admission with consult with Dr. Frank GI and surgical consult with Dr. Alba, Dr. Pee Irizarry will be the admitting MD covering for Dr. Moscoso he was informed of need for admission he will be arrive in approximately one hour Pt. requesting pain medication will give Dilaudid 1 mg IVPB Pt. informed of admission patient upset is in holding with her mother 10/08/16 15:36 Laboratory Tests 10/08/16 15:04 WBC 18.6 H RBC 4.19 Hgb 12.8 Hct 37.7 MCV 90.1 MCHC 34.0 RDW 12.1 Plt Count 301 MPV 9.6 Neutrophils % 71.3 Lymphocytes % 17.3 Monocytes % 8.3 Eosinophils % 2.5 Basophils % 0.6 10/08/16 15:52 Laboratory Tests 10/08/16 15:17 Urine Color Nivia Urine Appearance Clear Urine pH 5.0 Ur Specific [place] 1.033 Urine Protein 2+ H Urine Glucose (UA) Negative Urine Ketones 1+ H Urine Blood Negative Urine Nitrite Negative Urine Bilirubin 2.0 Urine Urobilinogen 2.0 e.u/dl H Ur Leukocyte Esterase Negative Urine RBC 3 Urine WBC 2 Ur Epithelial Cells Moderate Urine Mucus Many 10/08/16 17:20 10/08/16 17:33 Laboratory Tests 10/08/16 10/08/16 10/08/16 15:04 15:04 15:17 Sodium 137 Potassium 4.3 Chloride 101 Carbon Dioxide 24 Anion Gap 12 BUN 8 Creatinine 0.7 Creat Clearance w eGFR > 60 Random Glucose 88 D Lactic Acid Calcium 9.2 Total Bilirubin 0.5 AST 18 ALT 28 Alkaline Phosphatase 71 Total Protein 7.7 Albumin 3.7 Urine Color Nivia Urine Appearance Clear Urine pH 5.0 Ur Specific [place] 1.033 Urine Protein 2+ H Urine Glucose (UA) Negative Urine Ketones 1+ H Urine Blood Negative Ur Leukocyte Esterase Negative Urine RBC 3 Urine WBC 2 Ur Epithelial Cells Moderate Urine Mucus Many Urine HCG, Qual Negative 10/08/16 15:19 Sodium Potassium Chloride Carbon Dioxide Anion Gap BUN Creatinine Creat Clearance w eGFR Random Glucose Lactic Acid 0.744 Calcium Total Bilirubin AST ALT Alkaline Phosphatase Total Protein Albumin Urine Color Urine Appearance Urine pH Ur Specific [place] Urine Protein Urine Glucose (UA) Urine Ketones Urine Blood Ur Leukocyte Esterase Urine RBC Urine WBC Ur Epithelial Cells Urine Mucus Urine HCG, Qual 10/08/16 21:04 10/11/16 09:07 10/11/16 09:13 10/11/16 09:15 10/11/16 09:17 10/11/16 09:18 *DC/Admit/Observation/Transfer Diagnosis at time of Disposition: Diverticulitis Qualifiers: Diverticulitis site: large intestine Diverticulitis bleeding: without bleeding Diverticulitis complication: with abscess Qualified Code(s): K57.20 - Diverticulitis of large intestine with perforation and abscess without bleeding - Discharge Dispostion Admit: Yes Decision to Admit order Date/Time: 10/08/16 18:37
[2016-10-08 15:26] LABS: BASOPHIL 0.6 % (0-2.0); EOSINOPHIL 2.5 % (0-4.5); MCH 30.6 pg (25.7-33.7); MEAN CELL VOLUME 90.1 fl (80-96); MEAN PLT VOLUME 9.6 fl (7.5-11.1); NEUTROPHILS 71.3 % (42.8-82.8); PLATELET COUNT 301 K/MM3 (134-434); RDW 12.1 % (11.6-15.6); WHITE BLOOD COUNT 18.6 K/mm3 (4.0-10.0)
[2016-10-08 15:35] LABS: URINE APPEARANCE CLEAR; URINE BLOOD NEGATIVE (NEGATIVE); URINE COLOR AMBER; URINE GLUCOSE (UA) NEGATIVE (NEGATIVE); URINE KETONE 1+ (NEGATIVE); URINE LEUK ESTERASE NEGATIVE (NEGATIVE); URINE NITRITE NEGATIVE (NEGATIVE); URINE UROBILINOGEN 2.0 E.U/dl E.U./dl (0.2-1.0)
[2016-10-08 15:36] LABS: URINE PROTEIN 2+ (NEGATIVE)
[2016-10-08] MEDS ORDERED: SODIUM CHLORIDE 500 ML IV STA (15:36)
[2016-10-08 15:37] LABS: URINE MUCUS MANY; URINE RBC 3 /hpf (0-3); URINE WBC 2 /hpf (3-5)
[2016-10-08 15:50] LABS: ALBUMIN 3.7 g/dl (3.4-5.0); ALK PHOS 71 U/L (45-117); ANION GAP 12 (8-16); BILIRUBIN,TOTAL 0.5 mg/dL (0.2-1.0); CALCIUM 9.2 mg/dL (8.5-10.1); CO2 24 mmol/L (21-32); CREATININE 0.7 mg/dL (0.55-1.02); GLUCOSE,RANDOM 88 mg/dL (74-106); SGPT/ALT 28 U/L (12-78); TOT PROT 7.7 g/dl (6.4-8.2)
[2016-10-08 15:53] LABS: SGOT/AST 18 U/L (15-37)
[2016-10-08] MEDS ORDERED: HYDROmorphone HCL CARPU-JECT 1 MG/1 ML DISP.SYRIN IVPB ONE ×2 (19:03→19:08)
[2016-10-08] MEDS ORDERED: HYDROmorphone HCL CARPU-JECT 1 MG/1 ML DISP.SYRIN ONE (19:12)
[2016-10-08] MEDS ORDERED: DOCUSATE SODIUM 100 MG CAPSULE (FP) PO PRN (20:34)
[2016-10-08] MEDS ORDERED: HEPARIN NA (PORCINE) 5,000 UNITS/ML 1ML VIAL SQ SCH (22:00)
[2016-10-08] MEDS ORDERED: ACETAMINOPHEN 1000 MG/100 ML VIAL (NON FORMULARY) IVPB SCH (22:30)
[2016-10-08] MEDS ORDERED: ACETAMINOPHEN INJECTION 100 ML IVPB ONE (22:43)
[2016-10-08] MEDS: ACETAMINOPHEN 1000 MG/100 ML VIAL (NON FORMULARY) IVPB PRN (22:44)
[2016-10-09] MEDS: HYDROmorphone HCL CARPU-JECT 1 MG/1 ML DISP.SYRIN IVPB PRN ×6 (02:00→22:08)
[2016-10-09] MEDS ORDERED: HYDROmorphone HCL CARPU-JECT 1 MG/1 ML DISP.SYRIN ONE ×2 (02:07→05:39)
[2016-10-09 07:19] LABS: BASOPHIL 0.5 % (0-2.0); EOSINOPHIL 1.9 % (0-4.5); MCH 30.2 pg (25.7-33.7); MCHC 33.5 g/dl (32.0-36.0); MEAN CELL VOLUME 90.2 fl (80-96); MEAN PLT VOLUME 9.9 fl (7.5-11.1); NEUTROPHILS 73.8 % (42.8-82.8); PLATELET COUNT 299 K/MM3 (134-434); RDW 11.9 % (11.6-15.6); WHITE BLOOD COUNT 18.9 K/mm3 (4.0-10.0)
[2016-10-09 07:44] LABS: ALBUMIN 3.5 g/dl (3.4-5.0); ALK PHOS 69 U/L (45-117); ANION GAP 12 (8-16); BILIRUBIN,TOTAL 0.6 mg/dL (0.2-1.0); CALCIUM 8.6 mg/dL (8.5-10.1); CO2 24 mmol/L (21-32); COCKROFT - GAULT 134.9715; CREATININE 0.8 mg/dL (0.55-1.02); GLUCOSE,RANDOM 95 mg/dL (74-106); SGOT/AST 11 U/L (15-37); SGPT/ALT 26 U/L (12-78); TOT PROT 7.3 g/dl (6.4-8.2)
[2016-10-09] MEDS: ACETAMINOPHEN 1000 MG/100 ML VIAL (NON FORMULARY) IVPB PRN ×2 (09:11→23:09)
--- NOTE | 2016-10-09 10:38 | HP ---
Admitting History and Physical - Primary Care Physician PCP: Jacquie Moscoso - Admission Chief Complaint: DIVERTICULITIS. ABSCESS History Source: Medical Record - Past Medical History ...LMP: 09/21/16 - Smoking History Smoking history: Current some day smoker Have you smoked in the past 12 months: Yes Aproximately how many cigarettes per day: 20 - Alcohol/Substance Use Hx Alcohol Use: (rare) Home Medications - Allergies Allergies/Adverse Reactions: Allergies Allergy/AdvReac Type Severity Reaction Status Date / Time No Known Allergies Allergy Verified 10/08/16 13:28 - Home Medications Home Medications: Ambulatory Orders Amoxicillin/Potassium Clav [Augmentin 875-125 Tablet] 1 each PO BID #20 tablet 10/06/16 Review of Systems Findings/Remarks: very concerned that will need colostomy/major gi surgery very concerned [place] - Review of Systems Constitutional: denies: Chills, Fever Cardiovascular: denies: Chest Pain Respiratory: denies: SOB Gastrointestinal: reports: Abdominal Pain Physical Examination Vital Signs: Vital Signs Temperature 99.7 F H 10/09/16 07:34 Pulse Rate 91 H 10/09/16 09:01 Respiratory Rate 20 10/09/16 09:01 Blood Pressure 115/62 10/09/16 09:01 O2 Sat by Pulse Oximetry (%) 98 10/09/16 07:34 Constitutional: Yes: Calm Cardiovascular: Yes: WNL Respiratory: Yes: WNL Gastrointestinal: Yes: Tenderness, Tenderness, Rebound (mild) Edema: No Labs: CBC, BMP 10/09/16 06:05 10/09/16 06:05 Imaging - Results Cat Scan: Report Reviewed Problem List - Problems (1) Diverticulitis Code(s): K57.92 - DVTRCLI OF INTEST, PART UNSP, W/O PERF OR ABSCESS W/O BLEED Qualifiers: Diverticulitis site: large intestine Diverticulitis bleeding: without bleeding Diverticulitis complication: with abscess Qualified Code(s): K57.20 - Diverticulitis of large intestine with perforation and abscess without bleeding (2) Intra-abdominal abscess Code(s): K65.1 - PERITONEAL ABSCESS Assessment/Plan ZOSYN IV x 1 ID/GI/SURG CONSULTED NPO/IVF PAIN Rx F/U [employer] FM
[2016-10-09] MEDS ORDERED: PIPERACILLIN/TAZOB 3.375 GM/50 ML PRE-DOCKED IVPB ONE (11:00)
[2016-10-09] MEDS: DEXTROSE 5%-NORMAL SALINE 1,000 ML IV SCH (11:15)
[2016-10-09] MEDS: PIPERACILLIN/TAZOB 4.5 GM 100 ML IVPB SCH ×3 (11:15→22:10)
--- NOTE | 2016-10-09 11:22 | PN ---
Progress Note (short form) - Note Progress Note: ID Consult dictated Acute complicated sigmoid diverticulitis Diverticular abscess Leukocytosis, possible sepsis Await c/s Empiric zosyn GI/ Surgical evaluations
--- NOTE | 2016-10-09 12:04 | CONS ---
DATE OF CONSULTATION: DATE OF DICTATION: 10/09/2016 HISTORY OF PRESENT ILLNESS: The patient is a 31-year-old female evaluated for acute diverticulitis with diverticular abscess. The patient was admitted to [facility] from October 02 through October 06 with acute sigmoid diverticulitis. She was seen in consultation by . She was placed on IV Zosyn. The patients hospital course was significant for clinical improvement with resolution of her abdominal pain. She was tolerating a diet and was afebrile. She was discharged home on October 06, 2016, after completing 5 days of IV antibiotic therapy. She was discharged home on oral Augmentin. She reports that for approximately 24 hours post hospital discharge, she developed recurrent left-sided abdominal pain. It became progressively worse to the point where she presented to her primary care physician. She was seen in the office and was to the hospital for admission. CT scan done yesterday shows acute diverticulitis involving the sigmoid colon with a fluid collection measuring 5.7 x 5 cm. At the present time, she complains of left-sided abdominal pain. She denies any nausea or vomiting. She has a low-grade fever and an elevated white blood cell count. PAST MEDICAL HISTORY: Positive for Mosaic Paulson syndrome, history of myocardial bridge. ALLERGIES: No known allergies. MEDICATIONS: As an outpatient include Augmentin. SOCIAL HISTORY: Positive for tobacco and marijuana use. LABORATORY DATA: White count 18.9, hematocrit 38.1, platelet count 299. Creatinine 0.8. Urinalysis 2 white cells. PHYSICAL EXAMINATION: General: She is in moderate distress secondary to abdominal pain. Vital signs: Temperature 99.7, blood pressure 115/62, pulse 90 and regular, respirations 20 per minute. HEENT: Sclerae anicteric. Heart: Heart sounds S1, S2. Lungs: Clear. Abdomen: Soft. There is left lower quadrant tenderness to palpation. Extremities: Negative for edema. IMPRESSION: 1. Complicated acute sigmoid diverticulitis. 2. Diverticular abscess 3. Leukocytosis, possible sepsis. Await culture results, obtain GI and surgical evaluations, empiric antibiotic coverage, GI pathogens with Zosyn 4.5 g IV piggyback every 6 hours (patient unable to tolerate Flagyl due to severe nausea), analgesics as needed. Will follow. Thank you for the kind referral. KENNETH CASTRO M.D. [place]/[id number]
--- NOTE | 2016-10-09 13:38 | CON.GI ---
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 She was seen in [facility] and diagnosed with perforated diverticulitis with leukosytosis. She was in the hospital for 5 days and seen by Vivek Jaramillo MD, a lower in supervisor. He deemed that she was fit for discharge as she had less pain and her leukocytosis had trended from 21.6 to 12. She was sent out with po AbRx. She states her pain never resolved and she went to her PCP who sent her to [facility] for repeat CT which showed a 5 cm abscess in the sigmoid colon. Dr Jaramillo is not available and as such, I am asked to see this patient. - History Source History Provided By: Patient, Medical Record Limitations to Obtaining History: No Limitations - Past Medical History ...LMP: 09/21/16 Additional Medical History: Mosaic Turners syndrome - Alcohol/Substance Use Hx Alcohol Use: (rare) - Smoking History Smoking history: Current some day smoker Have you smoked in the past 12 months: Yes Aproximately how many cigarettes per day: 20 Home Medications - Allergies Allergies/Adverse Reactions: Allergies Allergy/AdvReac Type Severity Reaction Status Date / Time No Known Allergies Allergy Verified 10/08/16 13:28 - Home Medications Home Medications: Ambulatory Orders Amoxicillin/Potassium Clav [Augmentin 875-125 Tablet] 1 each PO BID #20 tablet 10/06/16 Physical Exam-GI Vital Signs: Vital Signs Temperature 99.7 F H 10/09/16 07:34 Pulse Rate 91 H 10/09/16 09:01 Respiratory Rate 20 10/09/16 09:01 Blood Pressure 115/62 10/09/16 09:01 O2 Sat by Pulse Oximetry (%) 98 10/09/16 07:34 Constitutional: Yes: Mild Distress, Obese HENT: Yes: Normocephalic Neck: Yes: Supple Cardiovascular: Yes: Regular Rate and Rhythm Respiratory: Yes: CTA Bilaterally ...Auscultate: Yes: Normoactive Bowel Sounds ...Palpate: Yes: Soft, Tenderness (LLQ) Labs: CBC, BMP 10/09/16 06:05 10/09/16 06:05 Imaging - Results Cat Scan: Report Reviewed, Image Reviewed (5x5 cm abscess in sigmoid and contained perforation.) Assessment/Plan 31 F with above history now with complicated diverticulitis. Dr Jaramillo is not available and I am asked to see the patient At this time, recommend: NPO IV AbRx IVF Surgical evaluation Percutaneous drainage of abscess by interventional
--- NOTE | 2016-10-09 16:42 | CONS ---
DATE OF CONSULTATION: 10/09/2016 REQUESTING PHYSICIAN: Jacquie Moscoso MD CONSULTING PHYSICIAN: Trey Wu MD REASON FOR CONSULTATION: Diverticulitis. HISTORY OF PRESENT ILLNESS: This is a 31-year-old woman who presented with acute sigmoid diverticulitis for the first time approximately 2 weeks ago. She required hospitalization at [facility] for several days where she was managed with intravenous antibiotics. Apparently, she was felt to have improved and was discharged home on antibiotics only several days ago. While at home, the patient states that she never felt entirely well. After visiting her PMD, she was sent for an outpatient CAT scan yesterday, which demonstrated persistent acute findings consistent with sigmoid diverticulitis. This, however, is complicated with an adjacent 5.7 x 5-cm abscess and some associated localized extraluminal air. PAST MEDICAL HISTORY: Essentially nil. No history of hypertension, morbid obesity, diabetes, respiratory, renal, or hepatic insufficiency. ALLERGIES: None known. REGULAR MEDICATIONS: None. SOCIAL HISTORY: Positive tobacco. The patient has smoked almost 20 years. Not smoked in the past 1-2 weeks. Essentially negative alcohol. FAMILY HISTORY: Father with history of COPD. REVIEW OF SYSTEMS: Otherwise nil. PHYSICAL EXAMINATION: General: Awake and alert in no acute distress. The patient is however emotionally upset, as she is planning to be in the next several weeks. Vital Signs: Stable, afebrile. T-max 99.7. Abdomen: Moderate distention. Soft, well-localized left lower quadrant tenderness on deep palpation. No true guarding or rebound. LABORATORY DATA: White count 18.9 with a normal hemoglobin and hematocrit. Chemistries are unremarkable. IMPRESSION: Complicated sigmoid diverticulitis with localized extraluminal air and abscess (abscess measuring 5.7 x 5 cm). Hemodynamically stable. PLAN: Suggest IV antibiotics as already instituted. Agree with GI recommendation for percutaneous drainage as per IR. If the patient responds and improves, she will require an elective colonoscopy in the next 6-8 weeks and then subsequently present for an elective laparoscopic left colectomy. On the other hand, if she fails additional conservative management, she will require exploratory laparotomy with colectomy, colostomy and drainage. Situation discussed at length with patient as well as her father at the bedside. All questions answered. I remain available. TREY WU M.D. ARCHIE/[id number] CC: Jacquie Moscoso MD
[2016-10-10] MEDS: HYDROmorphone HCL CARPU-JECT 1 MG/1 ML DISP.SYRIN IVPB PRN ×4 (02:26→17:18)
[2016-10-10] MEDS: PIPERACILLIN/TAZOB 4.5 GM 100 ML IVPB SCH ×4 (02:31→21:04)
[2016-10-10] MEDS: DEXTROSE 5%-NORMAL SALINE 1,000 ML IV SCH ×2 (02:31→14:44)
[2016-10-10 07:43] LABS: INR 1.73 (0.82-1.09); PROTHROMBIN TIME (PATIENT) 19.3 SEC (9.98-11.88)
--- NOTE | 2016-10-10 08:54 | PN ---
Progress Note, Physician Chief Complaint: FEELS BETTER C/O NAUSEA ESPECIALLY S/P PAIN Rx SITTING UP PLANNED ABSCESS DRAIN TODAY HAD D/W FAMILY - Current Medication List Current Medications: Active Medications Acetaminophen (Ofirmev Injection -) 1,000 mg IVPB Q6H PRN PRN Reason: PAIN Last Admin: 10/09/16 23:09 Dose: 1,000 mg Docusate Sodium (Colace -) 100 mg PO BID PRN PRN Reason: CONSTIPATION Hydromorphone HCl (Dilaudid Injection -) 2 mg IVPB Q4H PRN PRN Reason: PAIN Last Admin: 10/10/16 06:26 Dose: 2 mg Dextrose/Sodium Chloride (D5-Ns -) 1,000 mls @ 100 mls/hr IV ASDIR COLLIN Last Admin: 10/10/16 02:31 Dose: 100 mls/hr Piperacillin Sod/Tazobactam Sod (Zosyn 4.5gm Ivpb (Pre-Docked)) 100 mls @ 200 mls/hr IVPB Q6H-IV COLLIN PRN Reason: Protocol Last Admin: 10/10/16 02:31 Dose: 200 mls/hr - Objective Vital Signs: Vital Signs Temperature 98.5 F 10/10/16 06:20 Pulse Rate 102 H 10/10/16 06:20 Respiratory Rate 20 10/10/16 06:20 Blood Pressure 123/66 10/10/16 06:20 O2 Sat by Pulse Oximetry (%) 95 10/09/16 21:00 Constitutional: Yes: Calm Neck: Yes: WNL Cardiovascular: Yes: WNL Respiratory: Yes: WNL Gastrointestinal: Yes: Tenderness, Rebound (MILD) Edema: No Labs: CBC, BMP 10/09/16 06:05 10/09/16 06:05 INR, PTT INR 1.73 (0.82-1.09) H 10/10/16 06:00 Problem List - Problems (1) Diverticulitis Code(s): K57.92 - DVTRCLI OF INTEST, PART UNSP, W/O PERF OR ABSCESS W/O BLEED Qualifiers: Diverticulitis site: large intestine Diverticulitis bleeding: without bleeding Diverticulitis complication: with abscess Qualified Code(s): K57.20 - Diverticulitis of large intestine with perforation and abscess without bleeding (2) Intra-abdominal abscess Code(s): K65.1 - PERITONEAL ABSCESS Assessment/Plan IV ABx ID ON CASE GI -> IR DRAIN ABSCESS SURGERY CONSULTED NPO/IVF PAIN Rx BCx NEG x 2 INR 1.7? 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
[2016-10-10] MEDS: ACETAMINOPHEN 1000 MG/100 ML VIAL (NON FORMULARY) IVPB PRN ×2 (11:29→21:00)
[2016-10-10 11:52] LABS: BASOPHIL 0.2 % (0-2.0); EOSINOPHIL 0.3 % (0-4.5); MCH 30.5 pg (25.7-33.7); MCHC 33.5 g/dl (32.0-36.0); MEAN CELL VOLUME 91.1 fl (80-96); NEUTROPHILS 83.8 % (42.8-82.8); PLATELET COUNT 307 K/MM3 (134-434); WHITE BLOOD COUNT 16.6 K/mm3 (4.0-10.0)
[2016-10-10] MEDS: ONDANSETRON 4 MG/2 ML VIAL IVPUSH PRN ×2 (12:00→17:45)
--- NOTE | 2016-10-10 12:19 | PN ---
GI Progress Note Subjective: Patient sent for drainage of abscess I called Dr Das to make him aware that the INR was 1.7 He cancelled the procedure - Objective Vital Signs: Vital Signs Temperature 98.5 F 10/10/16 06:20 Pulse Rate 102 H 10/10/16 06:20 Respiratory Rate 20 10/10/16 06:20 Blood Pressure 123/66 10/10/16 06:20 O2 Sat by Pulse Oximetry (%) 95 10/09/16 21:00 Constitutional: Well Nourished Neck: Yes: Supple Cardiovascular: Yes: Regular Rate and Rhythm Respiratory: Yes: CTA Bilaterally Gastrointestinal Inspection: Yes: WNL ...Auscultate: Yes: Normoactive Bowel Sounds ...Palpate: Yes: Soft, Tenderness (LLQ) ...Percussion: Yes: Dullness Labs: CBC, BMP 10/10/16 06:00 10/09/16 06:05 INR, PTT INR 1.73 (0.82-1.09) H 10/10/16 06:00 Assessment/Plan 31 F with above history now with complicated diverticulitis. Dr Jaramillo is not available and I am asked to see the patient At this time, recommend: NPO IV AbRx IVF Surgical evaluation Percutaneous drainage of abscess by interventional was to be done today but INR elevated for unclear reasons Procedure cancelled. Will transfuse FFP tonight and drain tomorrow once INR is normalized
[2016-10-11] MEDS: HYDROmorphone HCL CARPU-JECT 1 MG/1 ML DISP.SYRIN IVPB PRN ×2 (01:18→21:13)
[2016-10-11] MEDS: PIPERACILLIN/TAZOB 4.5 GM 100 ML IVPB SCH ×4 (03:41→22:36)
[2016-10-11] MEDS: ACETAMINOPHEN 1000 MG/100 ML VIAL (NON FORMULARY) IVPB PRN ×3 (05:46→17:57)
--- NOTE | 2016-10-11 07:46 | PN ---
Progress Note, Physician History of Present Illness: PT WITH ABDOMINAL PAIN--STATES BETTER THAN YESTERDAY - Current Medication List Current Medications: Active Medications Acetaminophen (Ofirmev Injection -) 1,000 mg IVPB Q6H PRN PRN Reason: PAIN Last Admin: 10/11/16 05:46 Dose: 1,000 mg Docusate Sodium (Colace -) 100 mg PO BID PRN PRN Reason: CONSTIPATION Hydromorphone HCl (Dilaudid Injection -) 2 mg IVPB Q4H PRN PRN Reason: PAIN Last Admin: 10/11/16 01:18 Dose: 2 mg Dextrose/Sodium Chloride (D5-Ns -) 1,000 mls @ 100 mls/hr IV ASDIR COLLIN Last Admin: 10/10/16 14:44 Dose: 100 mls/hr Piperacillin Sod/Tazobactam Sod (Zosyn 4.5gm Ivpb (Pre-Docked)) 100 mls @ 200 mls/hr IVPB Q6H-IV COLLIN PRN Reason: Protocol Last Admin: 10/11/16 03:41 Dose: 200 mls/hr - Objective Vital Signs: Vital Signs Temperature 112 F H 10/11/16 06:00 Pulse Rate 108 H 10/11/16 02:09 Respiratory Rate 18 10/11/16 06:00 Blood Pressure 105/56 10/11/16 02:09 O2 Sat by Pulse Oximetry (%) 94 L 10/10/16 21:00 Cardiovascular: Yes: Regular Rate and Rhythm Respiratory: Yes: Regular, CTA Bilaterally Gastrointestinal: Yes: Distention, Tenderness Edema: No Labs: INR, PTT INR 1.73 (0.82-1.09) H 10/10/16 06:00 Problem List - Problems (1) Diverticulitis of intestine with perforation Assessment/Plan: IV ABX SURGICAL FOLLOW UP IR FOR DRAINAGE FOLLOW LABS Code(s): K57.80 - DVTRCLI OF INTEST, PART UNSP, W PERF AND ABSCESS W/O BLEED (2) Diverticulitis Assessment/Plan: ABOVE Code(s): K57.92 - DVTRCLI OF INTEST, PART UNSP, W/O PERF OR ABSCESS W/O BLEED Qualifiers: Diverticulitis site: large intestine Diverticulitis bleeding: without bleeding Diverticulitis complication: with abscess Qualified Code(s): K57.20 - Diverticulitis of large intestine with perforation and abscess without bleeding (3) Intra-abdominal abscess Assessment/Plan: ABOVE Code(s): K65.1 - PERITONEAL ABSCESS
[2016-10-11 07:54] LABS: INR 1.7 (0.82-1.09); PROTHROMBIN TIME (PATIENT) 18.9 SEC (9.98-11.88)
[2016-10-11 08:05] LABS: BASOPHIL 0.1 % (0-2.0); EOSINOPHIL 0.7 % (0-4.5); MCH 30.1 pg (25.7-33.7); MCHC 33.3 g/dl (32.0-36.0); MEAN CELL VOLUME 90.4 fl (80-96); MEAN PLT VOLUME 9.9 fl (7.5-11.1); NEUTROPHILS 88.7 % (42.8-82.8); PLATELET COUNT 245 K/MM3 (134-434); RDW 12.1 % (11.6-15.6); WHITE BLOOD COUNT 18.3 K/mm3 (4.0-10.0)
[2016-10-11 08:15] LABS: ALBUMIN 2.7 g/dl (3.4-5.0); ANION GAP 12 (8-16); CALCIUM 8.5 mg/dL (8.5-10.1); CO2 22 mmol/L (21-32); GLUCOSE,RANDOM 121 mg/dL (74-106)
[2016-10-11 08:20] LABS: ALK PHOS 61 U/L (45-117); BILIRUBIN,TOTAL 0.8 mg/dL (0.2-1.0); COCKROFT - GAULT 119.9775; CREATININE 0.9 mg/dL (0.55-1.02); SGPT/ALT 14 U/L (12-78); TOT PROT 6.2 g/dl (6.4-8.2)
[2016-10-11 08:33] LABS: SGOT/AST 10 U/L (15-37)
[2016-10-11] MEDS: DEXTROSE 5%-NORMAL SALINE 1,000 ML IV SCH ×2 (09:59→23:36)
[2016-10-11] MEDS ORDERED: PHYTONADIONE 10 MG/1 ML AMP IM ONE (10:00)
--- NOTE | 2016-10-11 12:38 | CON.CARD ---
Consult Consult Specialty:: Cardiology Referred by:: Dr. 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 Pt. seen and examined today. C/o abdominal pain. No chest pain or sob either at rest or with exertion. No syncope or near syncope, palpitations, pnd, orthopnea, or LE edema. - History Source History Provided By: Patient, Family Member, Medical Record Limitations to Obtaining History: No Limitations - Past Medical History Cardio/Vascular: Yes: Other (LAD myocardial bridge) ...LMP: 09/21/16 ...: No Additional Medical History: Mosaic Turners syndrome - Alcohol/Substance Use Hx Alcohol Use: (rare) - Smoking History Smoking history: Current some day smoker Have you smoked in the past 12 months: Yes Aproximately how many cigarettes per day: 20 - Social History Usual Living Arrangement: With Spouse ADL: Independent History of Recent Travel: No Home Medications - Allergies Allergies/Adverse Reactions: Allergies Allergy/AdvReac Type Severity Reaction Status Date / Time No Known Allergies Allergy Verified 10/08/16 13:28 - Home Medications Home Medications: Ambulatory Orders Amoxicillin/Potassium Clav [Augmentin 875-125 Tablet] 1 each PO BID #20 tablet 10/06/16 Family Disease History - Family Disease History Family History: Denies Review of Systems - Review of Systems Constitutional: reports: Loss of Appetite. denies: No Symptoms, Chills, Diaphoresis, Fever, Lethargy, Malaise, Night Sweats, Unintentional Wgt. Loss, Weakness, Other Eyes: denies: No Symptoms, Blind Spots, Blurred Vision, Double Vision, Eye Pain , Floaters, Photophobia, Recent Change in Vision, Other HENT: denies: No Symptoms, Difficult Swallowing, Ear Discharge, Ear Pain, Epistaxis, Gingival Bleeding, Hearing Loss, Mouth Swelling, Nasal Congestion, Ocular Prosthesis, Throat Pain, Toothache, Ringing in Ears, Other Neck: denies: No Symptoms, Decreased ROM, Lumps, Pain on Movement, Stiffness, Swollen Glands, Tenderness, Other Cardiovascular: denies: No Symptoms, Chest Pain, Edema, Palpitations, Shortness of Breath, Other Respiratory: denies: No Symptoms, Cough, Exercise Intolerance, Hemoptysis, Orthopnea, PND, Snoring, SOB, SOB on Exertion, Wheezing, Other Gastrointestinal: reports: Abdominal Pain. denies: No Symptoms, Bloating, Constipation, Diarrhea, Dysphagia, Indigestion, Melena, Nausea, Rectal Bleeding , Vomiting, Vomiting Blood, Other Genitourinary: denies: No Symptoms, Burning, Discharge, Dysuria, Flank Pain, Frequency, Hematuria, Incontinence, Lesions, Menses, Pain, Testicular Mass, Testicular Pain, Testicular Swelling, Urgency, Vaginal Bleeding, Other Breasts: denies: No Symptoms Reported, See HPI, Breast Implants, Discharge from Nipple, Lumps, Pain, Skin Changes, Other Musculoskeletal: denies: No Symptoms, Back Pain, Crepitus, Decreased ROM, Extremity Pain, Joint Pain, Joint Swelling, Muscle Pain, Muscle Cramps, Muscle Weakness, Other Integumentary: denies: No Symptoms, Blister, Bruising, Change in Color, Eczema, Erythema, Incision, Lesions, Lump, Pallor, Pruritis, Rash, Wound, Other Neurological: denies: No Symptoms, Change in LOC, Change in Speech, Confusion, Dizziness, Headache, Incoordination, Numbness, Parasthesia, Pre-Existing Deficit , Seizure, Syncope, Tremors, Unsteady Gait, Weakness, Other Endocrine: denies: No Symptoms, Excessive Sweating, Flushing, Increased Hunger, Increased Thirst, Intolerance to Cold, Intolerance to Heat, Unexplained Weight Gain, Unexplained Weight Loss, Other Hematology/Lymphatic: denies: No Symptoms, Easily Bruised, Excessive Bleeding, Swollen Glands, Other Psychiatric: denies: No Symptoms, Altered Sleep Pattern, Anxiety, Depression, Hallucinations, Panic, Paranoia, Suicidal, Other - Risk Factors Known Risk Factors: Yes: Smoking Vital Signs: Vital Signs Temperature 112 F H 10/11/16 06:00 Pulse Rate 108 H 10/11/16 02:09 Respiratory Rate 18 10/11/16 06:00 Blood Pressure 105/56 10/11/16 02:09 O2 Sat by Pulse Oximetry (%) 94 L 10/10/16 21:00 Constitutional: Yes: Well Nourished, No Distress, Calm Eyes: Yes: WNL, Conjunctiva Clear, EOM Intact, PERRL HENT: Yes: WNL, Atraumatic, Normocephalic Neck: Yes: WNL, Supple, Trachea Midline Respiratory: Yes: WNL, Regular, CTA Bilaterally. No: Rales, Rhonchi, Wheezes Gastrointestinal: Yes: Tenderness Cardiovascular: Yes: WNL, Regular Rate and Rhythm. No: Bradycardia, Tachycardia , Pulse Irregular, Gallop, Rub, Varicosities JVD: No Carotid Bruit: No PMI: Non-Displaced Heart Sounds: Yes: S1, S2. No: Split S2, S3, S4, Clicks, Gallop, Rub, Bruit Murmur: No: Systolic Murmur, Diastolic Murmur Musculoskeletal: Yes: WNL Extremities: Yes: WNL Edema: No Peripheral Pulses WNL: Yes Integumentary: Yes: WNL Neurological: Yes: WNL, Alert, Oriented, Cran Nerves II-XII Intact ...Motor Strength: WNL Psychiatric: Yes: WNL, Alert, Oriented - Other Data Labs, Other Data: CBC, BMP 10/11/16 06:15 10/11/16 06:15 INR, PTT INR 1.70 (0.82-1.09) H 10/11/16 06:15 Echo: Report Reviewed Imaging - Results Chest X-ray: Report Reviewed, Image Reviewed EKG: Report Reviewed, Image Reviewed Other: Report Reviewed, Image Reviewed Assessment/Plan 31 year old woman with a history of Mosaic Paulson syndrome, 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 Perioperative cardiac risk stratification -pt with h/o LAD myocardial bridge seen on screening CTA coronaries 2015 -f/up stress echo done 02/27/16 showed no evidence of ischemia -TTE done 11/2015 showed no structural heart disease, normal LV and RV function -at this time there is no cardiac contraindication to planned procedures to treat her intra-abdominal abscess and diverticulitis with drain and surgery if needed, thus pt may proceed without delay for additional cardiac work up.
--- NOTE | 2016-10-11 13:15 | PN ---
Progress Note, Physician History of Present Illness: C/O abdominal pain, loose stool Spiked temp earlier this am WBC remains elevated Blood c/s no growth Awaiting IR drainage of abscess - Current Medication List Current Medications: Active Medications Acetaminophen (Ofirmev Injection -) 1,000 mg IVPB Q6H PRN PRN Reason: PAIN Last Admin: 10/11/16 09:59 Dose: 1,000 mg Docusate Sodium (Colace -) 100 mg PO BID PRN PRN Reason: CONSTIPATION Hydromorphone HCl (Dilaudid Injection -) 2 mg IVPB Q4H PRN PRN Reason: PAIN Last Admin: 10/11/16 01:18 Dose: 2 mg Dextrose/Sodium Chloride (D5-Ns -) 1,000 mls @ 100 mls/hr IV ASDIR COLLIN Last Admin: 10/11/16 09:59 Dose: 100 mls/hr Piperacillin Sod/Tazobactam Sod (Zosyn 4.5gm Ivpb (Pre-Docked)) 100 mls @ 200 mls/hr IVPB Q6H-IV COLLIN PRN Reason: Protocol Last Admin: 10/11/16 08:19 Dose: 200 mls/hr - Objective Vital Signs: Vital Signs Temperature 112 F H 10/11/16 06:00 Pulse Rate 108 H 10/11/16 02:09 Respiratory Rate 18 10/11/16 06:00 Blood Pressure 105/56 10/11/16 02:09 O2 Sat by Pulse Oximetry (%) 94 L 10/10/16 21:00 Constitutional: Yes: No Distress Eyes: Yes: Conjunctiva Clear Cardiovascular: Yes: Regular Rate and Rhythm, S1, S2 Respiratory: Yes: CTA Bilaterally Gastrointestinal: Yes: Normal Bowel Sounds, Tenderness, Other (distended, tympanitic) Labs: CBC, BMP 10/11/16 06:15 10/11/16 06:15 INR, PTT INR 1.70 (0.82-1.09) H 10/11/16 06:15 Assessment/Plan Diverticular abscess Complicated sigmoid diverticulitis For IR drainage today Continue zosyn Discussed with parents at bedside
[2016-10-11] MEDS ORDERED: ONDANSETRON 4 MG/2 ML VIAL IVPB PRN (13:36)
[2016-10-11 13:43] LABS: INR 1.62 (0.82-1.09)
[2016-10-11 14:41] LABS: ACTIVATED PTT 31.6 SECONDS (26.9-34.4)
[2016-10-11 15:33] LABS: FIBRINOGEN > 700.0 mg/dL (238-498)
[2016-10-11 18:46] LABS: BASOPHIL 0.1 % (0-2.0); EOSINOPHIL 0.5 % (0-4.5); MCH 29.8 pg (25.7-33.7); MCHC 32.7 g/dl (32.0-36.0); MEAN CELL VOLUME 91.2 fl (80-96); MEAN PLT VOLUME 10.3 fl (7.5-11.1); NEUTROPHILS 88.3 % (42.8-82.8); PLATELET COUNT 258 K/MM3 (134-434); RDW 12.1 % (11.6-15.6); WHITE BLOOD COUNT 15.7 K/mm3 (4.0-10.0)
[2016-10-11 19:17] LABS: INR 1.58 (0.82-1.09); PROTHROMBIN TIME (PATIENT) 17.5 SEC (9.98-11.88)
--- NOTE | 2016-10-11 19:18 | PN ---
GI Progress Note Subjective: still with abdominal pain,adjusted NGT, s/p percutaneous drainage - Objective Vital Signs: Vital Signs Temperature 100.6 F H 10/11/16 15:45 Pulse Rate 109 H 10/11/16 15:45 Respiratory Rate 34 H 10/11/16 15:45 Blood Pressure 117/68 10/11/16 15:45 O2 Sat by Pulse Oximetry (%) 96 10/11/16 15:45 Constitutional: Mild Distress Eyes: Yes: Conjunctiva Clear HENT: Yes: Atraumatic Neck: Yes: Supple Cardiovascular: Yes: Regular Rate and Rhythm Respiratory: Yes: CTA Bilaterally Gastrointestinal Inspection: Yes: Distention ...Palpate: Yes: Soft, Tenderness (--diffuse). No: Guarding, Hepatomegaly, Splenomegaly Labs: CBC, BMP 10/11/16 18:00 10/11/16 06:15 INR, PTT INR 1.62 (0.82-1.09) H 10/11/16 13:17 Fibrinogen > 700.0 mg/dL (238-498) H 10/11/16 13:17 Problem List - Problems (1) Intra-abdominal abscess Assessment/Plan: R> add Flagyl surgical consultation repeat ct in am discussed findings with her mom Code(s): K65.1 - PERITONEAL ABSCESS
[2016-10-11] MEDS: ONDANSETRON 4 MG/2 ML VIAL IVPB PRN (20:44)
--- NOTE | 2016-10-11 22:10 | CONSULT ---
Consult - text type - Consultation Consultation Note: History Of present illness: Patient is a 31-year-old female with a history of Mosaic carmona syndrome, with a myocardial bridge and history of diverticulitis of sigmoid, constipation, here today complaining of worsening lower abdominal cramping radiating from one side to the other,"in waves" worse since discharge from [facility] on 10/06/2016. Patient presently does not have any lower abdominal pain. Patient has been taking Augmentin since her discharge along with ibuprofen for pain. She also having multiple miscarriages in the past. Patient denies any urinary symptoms no hematuria, urgency or frequency. Patient denies any chills. CT a/p --acute diverticulitis in sigois and intraabdominal abscess s/p IR guided drainage today - Past Medical History constipation obesity myocardal bridge mosaic carmona syndrome Past Surgical History h/o hernia repair Active Medications Generic Name Dose Route Start Last Admin Trade Name Freq PRN Reason Stop Dose Admin Acetaminophen 1,000 mg 10/08/16 22:31 10/11/16 17:57 Ofirmev Injection - IVPB 1,000 mg Q6H PRN Administration PAIN Docusate Sodium 100 mg 10/08/16 20:34 Colace - PO BID PRN CONSTIPATION Hydromorphone HCl 2 mg 10/11/16 20:59 10/12/16 06:30 Dilaudid Injection - IVPB 10/12/16 14:08 2 mg Q4H PRN Administration PAIN Dextrose/Sodium Chloride 1,000 mls @ 100 mls/hr 10/09/16 10:45 10/11/16 23:36 D5-Ns - IV 100 mls/hr ASDIR COLLIN Administration Piperacillin Sod/Tazobactam Sod 100 mls @ 200 mls/hr 10/09/16 11:15 10/12/16 03 :00 Zosyn 4.5gm Ivpb (Pre-Docked) IVPB 200 mls/hr Q6H-IV COLLIN Administration Protocol Metronidazole 100 mls @ 100 mls/hr 10/11/16 19:15 10/12/16 01:12 Flagyl 500mg Premixed Ivpb - IVPB 100 mls/hr Q8H-IV COLLIN Administration Ondansetron HCl 4 mg 10/11/16 19:13 10/12/16 06:07 Zofran Injection IVPB 4 mg Q4H PRN Administration Phenol/Menthol 2 spray 10/11/16 21:31 10/12/16 03:00 Chloraseptic - MM 2 spray Q4H PRN Administration THROAT IRRITATION Allergies/Adverse Reactions: Allergies Allergy/AdvReac Type Severity Reaction Status Date / Time No Known Allergies Allergy Verified 10/08/16 13:28 Home Medications: Ambulatory Orders Amoxicillin/Potassium Clav [Augmentin 875-125 Tablet] 1 each PO BID #20 tablet 10/06/16 AFVSS Cor: RSR, No murmurs, No gallops Lungs: Clear to P&A Abd: Soft, mildly distended, tender lowe rabdomen. RLQ drain Ext:No significant edema Abnormal Lab Results 10/11/16 10/11/16 10/11/16 06:15 06:15 06:15 WBC 18.3 H RBC 3.38 L Hgb 10.2 L D Hct 30.6 L D Neutrophils % 88.7 H Lymphocytes % 5.4 L D INR 1.70 H Fibrinogen Random Glucose 121 H D AST 10 L Total Protein 6.2 L Albumin 2.7 L D 10/11/16 10/11/16 10/11/16 13:17 18:00 18:00 WBC 15.7 H RBC 3.13 L Hgb 9.3 L Hct 28.6 L Neutrophils % 88.3 H Lymphocytes % 6.8 L D INR 1.62 H 1.58 H Fibrinogen > 700.0 H Random Glucose AST Total Protein Albumin A/P 31 y/o female with acute diverticulitis of sigmoid/ intraabdominal abscess We have been consulted for coagulopathy Suspect due to ongoing infection and ? vit. K deficiency from recent antibiotic use s/p 10mg vit. K/2 units FFP and drainage of abscess via IR PTT --nl/fibrinogenis high No family /personal h/o bleeding diathesis repeating CT in am further IR drainage ? surgical consult pending anemia of chronic disease due to ongoing infection? will follow CBC/coags.
[2016-10-11] MEDS: METRONIDAZOLE 500 MG PREMIXED 100 ML IVPB SCH (22:34)
[2016-10-11] MEDS: PHENOL 177 ML SPRAY BOTTLE MM PRN (22:57)
[2016-10-12] MEDS: METRONIDAZOLE 500 MG PREMIXED 100 ML IVPB SCH ×3 (01:12→18:11)
[2016-10-12] MEDS: ONDANSETRON 4 MG/2 ML VIAL IVPB PRN ×3 (01:47→21:22)
[2016-10-12] MEDS: HYDROmorphone HCL CARPU-JECT 2 MG/1 ML DISP.SYRIN IVPB PRN ×3 (02:15→22:02)
[2016-10-12] MEDS: PHENOL 177 ML SPRAY BOTTLE MM PRN (03:00)
[2016-10-12] MEDS: PIPERACILLIN/TAZOB 4.5 GM 100 ML IVPB SCH ×5 (03:00→22:51)
--- NOTE | 2016-10-12 07:50 | PN ---
Progress Note, Physician History of Present Illness: PT WITH ABDOMINAL PAIN--STATES BETTER THAN YESTERDAY - Current Medication List Current Medications: Active Medications Acetaminophen (Ofirmev Injection -) 1,000 mg IVPB Q6H PRN PRN Reason: PAIN Last Admin: 10/11/16 17:57 Dose: 1,000 mg Docusate Sodium (Colace -) 100 mg PO BID PRN PRN Reason: CONSTIPATION Hydromorphone HCl (Dilaudid Injection -) 2 mg IVPB Q4H PRN PRN Reason: PAIN Stop: 10/12/16 14:08 Last Admin: 10/12/16 06:30 Dose: 2 mg Dextrose/Sodium Chloride (D5-Ns -) 1,000 mls @ 100 mls/hr IV ASDIR COLLIN Last Admin: 10/11/16 23:36 Dose: 100 mls/hr Piperacillin Sod/Tazobactam Sod (Zosyn 4.5gm Ivpb (Pre-Docked)) 100 mls @ 200 mls/hr IVPB Q6H-IV COLLIN PRN Reason: Protocol Last Admin: 10/12/16 03:00 Dose: 200 mls/hr Metronidazole (Flagyl 500mg Premixed Ivpb -) 100 mls @ 100 mls/hr IVPB Q8H-IV COLLIN Last Admin: 10/12/16 01:12 Dose: 100 mls/hr Ondansetron HCl (Zofran Injection) 4 mg IVPB Q4H PRN Last Admin: 10/12/16 06:07 Dose: 4 mg Phenol/Menthol (Chloraseptic -) 2 spray MM Q4H PRN PRN Reason: THROAT IRRITATION Last Admin: 10/12/16 03:00 Dose: 2 spray - Objective Vital Signs: Vital Signs Temperature 100.1 F H 10/12/16 06:00 Pulse Rate 110 H 10/12/16 06:00 Respiratory Rate 20 10/12/16 06:00 Blood Pressure 122/61 10/12/16 06:00 O2 Sat by Pulse Oximetry (%) 96 10/11/16 21:00 Cardiovascular: Yes: Regular Rate and Rhythm Respiratory: Yes: Regular, CTA Bilaterally Gastrointestinal: Yes: Soft, Distention, Tenderness Labs: INR, PTT INR 1.58 (0.82-1.09) H 10/11/16 18:00 Fibrinogen > 700.0 mg/dL (238-498) H 10/11/16 13:17 Problem List - Problems (1) Diverticulitis of intestine with perforation Assessment/Plan: IV ABX SURGICAL FOLLOW UP IR --S/P- DRAINAGE FOLLOW LABS Code(s): K57.80 - DVTRCLI OF INTEST, PART UNSP, W PERF AND ABSCESS W/O BLEED (2) Diverticulitis Assessment/Plan: ABOVE Code(s): K57.92 - DVTRCLI OF INTEST, PART UNSP, W/O PERF OR ABSCESS W/O BLEED Qualifiers: Qualified Code(s): K57.20 - Diverticulitis of large intestine with perforation and abscess without bleeding (3) Intra-abdominal abscess Assessment/Plan: ABOVE F/U CT SCAN Code(s): K65.1 - PERITONEAL ABSCESS
[2016-10-12 08:03] LABS: BASOPHIL 0.2 % (0-2.0); EOSINOPHIL 1.2 % (0-4.5); MCH 30.1 pg (25.7-33.7); MCHC 33.1 g/dl (32.0-36.0); MEAN CELL VOLUME 90.8 fl (80-96); MEAN PLT VOLUME 9.9 fl (7.5-11.1); NEUTROPHILS 84.3 % (42.8-82.8); PLATELET COUNT 260 K/MM3 (134-434); RDW 12.4 % (11.6-15.6); WHITE BLOOD COUNT 16.7 K/mm3 (4.0-10.0)
[2016-10-12 08:16] LABS: INR 1.43 (0.82-1.09); PROTHROMBIN TIME (PATIENT) 15.9 SEC (9.98-11.88)
[2016-10-12 08:26] LABS: ALBUMIN 2.6 g/dl (3.4-5.0); ANION GAP 11 (8-16); CALCIUM 8.1 mg/dL (8.5-10.1); CO2 26 mmol/L (21-32); COCKROFT - GAULT 134.9715; CREATININE 0.8 mg/dL (0.55-1.02); GLUCOSE,RANDOM 106 mg/dL (74-106); SGOT/AST 6 U/L (15-37); SGPT/ALT 15 U/L (12-78)
[2016-10-12 08:27] LABS: ALK PHOS 64 U/L (45-117); BILIRUBIN,TOTAL 0.5 mg/dL (0.2-1.0); TOT PROT 6.3 g/dl (6.4-8.2)
--- NOTE | 2016-10-12 09:46 | PN ---
Progress Note, Physician Chief Complaint: seen and examined. No chest pain or SOB. - Current Medication List Current Medications: Active Medications Acetaminophen (Ofirmev Injection -) 1,000 mg IVPB Q6H PRN PRN Reason: PAIN Last Admin: 10/11/16 17:57 Dose: 1,000 mg Docusate Sodium (Colace -) 100 mg PO BID PRN PRN Reason: CONSTIPATION Hydromorphone HCl (Dilaudid Injection -) 2 mg IVPB Q4H PRN PRN Reason: PAIN Stop: 10/12/16 14:08 Last Admin: 10/12/16 06:30 Dose: 2 mg Dextrose/Sodium Chloride (D5-Ns -) 1,000 mls @ 100 mls/hr IV ASDIR COLLIN Last Admin: 10/11/16 23:36 Dose: 100 mls/hr Piperacillin Sod/Tazobactam Sod (Zosyn 4.5gm Ivpb (Pre-Docked)) 100 mls @ 200 mls/hr IVPB Q6H-IV COLLIN PRN Reason: Protocol Last Admin: 10/12/16 08:22 Dose: 200 mls/hr Metronidazole (Flagyl 500mg Premixed Ivpb -) 100 mls @ 100 mls/hr IVPB Q8H-IV COLLIN Last Admin: 10/12/16 01:12 Dose: 100 mls/hr Ondansetron HCl (Zofran Injection) 4 mg IVPB Q4H PRN Last Admin: 10/12/16 06:07 Dose: 4 mg Phenol/Menthol (Chloraseptic -) 2 spray MM Q4H PRN PRN Reason: THROAT IRRITATION Last Admin: 10/12/16 03:00 Dose: 2 spray - Objective Vital Signs: Vital Signs Temperature 100.1 F H 10/12/16 06:00 Pulse Rate 110 H 10/12/16 06:00 Respiratory Rate 20 10/12/16 06:00 Blood Pressure 122/61 10/12/16 06:00 O2 Sat by Pulse Oximetry (%) 96 10/11/16 21:00 Constitutional: Yes: Calm Eyes: Yes: Conjunctiva Clear Cardiovascular: Yes: Regular Rate and Rhythm Respiratory: Yes: CTA Bilaterally Gastrointestinal: Yes: Other (decreased bowel sounds; no rebound or guarding tenderness.) Edema: No Neurological: Yes: Alert Labs: CBC, BMP 10/12/16 06:00 04/11/17 06:00 INR, PTT INR 1.43 (0.82-1.09) H 10/12/16 06:00 Fibrinogen > 700.0 mg/dL (238-498) H 10/11/16 13:17 Laboratory Tests 10/12/16 10/12/16 10/12/16 06:00 06:00 06:00 WBC 16.7 H Hgb 9.6 L Plt Count 260 INR 1.43 H PTT (Actin FS) Sodium 145 Potassium 3.4 L Creatinine 0.8 10/12/16 06:00 WBC Hgb Plt Count INR PTT (Actin FS) 32.1 Sodium Potassium Creatinine Assessment/Plan Assessment/Plan 31 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 Hemodynamically stable at this time.
[2016-10-12] MEDS ORDERED: DEXTROSE 5%-NORMAL SALINE 1,000 ML IV SCH (10:01)
[2016-10-12] MEDS: AMINO ACIDS 4.25%/D5W 1,000 ML IV SCH (15:58)
--- NOTE | 2016-10-12 18:57 | PN ---
GI Progress Note Subjective: s/p percutaneous drainage #2 today in the llq drained 80 cc of pus, patient is a difficult stick, tried but veins faint and fragile, poor venous access - Objective Vital Signs: Vital Signs Temperature 99.6 F 10/12/16 15:34 Pulse Rate 103 H 10/12/16 17:03 Respiratory Rate 23 10/12/16 17:03 Blood Pressure 108/61 10/12/16 17:03 O2 Sat by Pulse Oximetry (%) 100 10/12/16 17:03 Constitutional: Well Nourished, Poor Hygeine HENT: Yes: Atraumatic Neck: Yes: Supple Cardiovascular: Yes: Regular Rate and Rhythm Respiratory: Yes: CTA Bilaterally ...Palpate: Yes: Soft, Tenderness (--llq drain). No: Firm/Rigid, Guarding, Hepatomegaly, Mass, Pulsatile Mass, Splenomegaly Labs: CBC, BMP 10/12/16 06:00 10/12/16 06:00 INR, PTT INR 1.43 (0.82-1.09) H 10/12/16 06:00 Fibrinogen > 700.0 mg/dL (238-498) H 10/11/16 13:17 Problem List - Problems (1) Intra-abdominal abscess Assessment/Plan: patient will need better venous access continue antibiotics Code(s): K65.1 - PERITONEAL ABSCESS
--- NOTE | 2016-10-12 19:11 | PN ---
Progress Note, Physician History of Present Illness: S/P placement of second drainage catheter Less abdominal pain Temps, WBC improved Tolerating antibiotics - Current Medication List Current Medications: Active Medications Acetaminophen (Ofirmev Injection -) 1,000 mg IVPB Q6H PRN PRN Reason: PAIN Last Admin: 10/11/16 17:57 Dose: 1,000 mg Docusate Sodium (Colace -) 100 mg PO BID PRN PRN Reason: CONSTIPATION Fat Emulsion Intravenous (Intralipid -) 500 ml IV DAILY@2200 COLLIN Piperacillin Sod/Tazobactam Sod (Zosyn 4.5gm Ivpb (Pre-Docked)) 100 mls @ 200 mls/hr IVPB Q6H-IV COLLIN PRN Reason: Protocol Last Admin: 10/12/16 15:06 Dose: 200 mls/hr Metronidazole (Flagyl 500mg Premixed Ivpb -) 100 mls @ 100 mls/hr IVPB Q8H-IV COLLIN Last Admin: 10/12/16 18:11 Dose: 100 mls/hr Amino Acids (Clinimix -) 1,000 mls @ 84 mls/hr IV Q12H COLLIN Last Admin: 10/12/16 15:58 Dose: 84 mls/hr Ondansetron HCl (Zofran Injection) 4 mg IVPB Q4H PRN Last Admin: 10/12/16 06:07 Dose: 4 mg Phenol/Menthol (Chloraseptic -) 2 spray MM Q4H PRN PRN Reason: THROAT IRRITATION Last Admin: 10/12/16 03:00 Dose: 2 spray - Objective Vital Signs: Vital Signs Temperature 99.6 F 10/12/16 15:34 Pulse Rate 103 H 10/12/16 17:03 Respiratory Rate 23 10/12/16 17:03 Blood Pressure 108/61 10/12/16 17:03 O2 Sat by Pulse Oximetry (%) 100 10/12/16 17:03 Constitutional: Yes: No Distress Eyes: Yes: Conjunctiva Clear Cardiovascular: Yes: Regular Rate and Rhythm, S1, S2 Respiratory: Yes: CTA Bilaterally Gastrointestinal: Yes: Normal Bowel Sounds, Soft, Other (+ lower abdominal tenderness Drains with purulent fluid) Labs: CBC, BMP 10/12/16 06:00 10/12/16 06:00 INR, PTT INR 1.43 (0.82-1.09) H 10/12/16 06:00 Fibrinogen > 700.0 mg/dL (238-498) H 10/11/16 13:17 Assessment/Plan Diverticular abscesses s/p percutaneous drainage Complicated sigmoid diverticulitis Continue zosyn Await cultures
--- NOTE | 2016-10-12 20:00 | PN ---
Progress Note (short form) - Note Progress Note: Patient seen and examined S/P second catheter drainage Improvement in coags , but still elevation of INR at 1.43. Last Vital Signs Temp Pulse Resp BP Pulse Ox 97 F L 97 H 20 129/69 100 10/12/16 18:00 10/12/16 18:00 10/12/16 18:00 10/12/16 18:00 10/12/16 17:03 Lungs clear Cor --RSR Abdomen-- s/p catheter drainage Abdomen-- mild tenderness Ext- no tenderness CBC, BMP 10/12/16 06:00 10/12/16 06:00 Current Medications Generic Name Dose Route Start Last Admin Trade Name Freq PRN Reason Stop Dose Admin Acetaminophen 1,000 mg 10/08/16 22:31 10/11/16 17:57 Ofirmev Injection - IVPB 1,000 mg Q6H PRN Administration PAIN Docusate Sodium 100 mg 10/08/16 20:34 Colace - PO BID PRN CONSTIPATION Fat Emulsion Intravenous 500 ml 10/12/16 22:00 Intralipid - IV DAILY@2200 COLLIN Piperacillin Sod/Tazobactam Sod 100 mls @ 200 mls/hr 10/09/16 11:15 10/12/16 15 :06 Zosyn 4.5gm Ivpb (Pre-Docked) IVPB 200 mls/hr Q6H-IV COLLIN Administration Protocol Metronidazole 100 mls @ 100 mls/hr 10/11/16 19:15 10/12/16 18:11 Flagyl 500mg Premixed Ivpb - IVPB 100 mls/hr Q8H-IV COLLIN Administration Amino Acids 1,000 mls @ 84 mls/hr 10/12/16 11:00 10/12/16 15:58 Clinimix - IV 84 mls/hr Q12H COLLIN Administration Ondansetron HCl 4 mg 10/11/16 19:13 10/12/16 06:07 Zofran Injection IVPB 4 mg Q4H PRN Administration Phenol/Menthol 2 spray 10/11/16 21:31 10/12/16 03:00 Chloraseptic - MM 2 spray Q4H PRN Administration THROAT IRRITATION Impression: S/P diverticular abscess with drainage catheters Coagulopathy likely secondary to antibiotics and infection Continue to monitor coags.
[2016-10-12] MEDS ORDERED: HYDROmorphone HCL CARPU-JECT 1 MG/1 ML DISP.SYRIN IVPB PRN (21:09)
[2016-10-12] MEDS: FAT EMULSIONS 20% 500 ML PREMIX INFUS.BAG IV SCH ×2 (22:04→22:53)
[2016-10-13] MEDS: METRONIDAZOLE 500 MG PREMIXED 100 ML IVPB SCH ×3 (01:13→18:33)
[2016-10-13] MEDS: AMINO ACIDS 4.25%/D5W 1,000 ML IV SCH ×3 (01:13→23:45)
[2016-10-13] MEDS: ONDANSETRON 4 MG/2 ML VIAL IVPB PRN (02:16)
[2016-10-13] MEDS: PIPERACILLIN/TAZOB 4.5 GM 100 ML IVPB SCH ×4 (02:47→22:06)
[2016-10-13] MEDS: HYDROmorphone HCL CARPU-JECT 2 MG/1 ML DISP.SYRIN IVPB PRN ×4 (02:51→20:50)
--- NOTE | 2016-10-13 07:13 | PN ---
Progress Note, Physician History of Present Illness: PT WITH ABDOMINAL PAIN--STATES BETTER THAN YESTERDAY SOARE WHERE CATH SITE - Current Medication List Current Medications: Active Medications Acetaminophen (Ofirmev Injection -) 1,000 mg IVPB Q6H PRN PRN Reason: PAIN Last Admin: 10/11/16 17:57 Dose: 1,000 mg Docusate Sodium (Colace -) 100 mg PO BID PRN PRN Reason: CONSTIPATION Fat Emulsion Intravenous (Intralipid -) 500 ml IV DAILY@2200 COLLIN Last Admin: 10/12/16 22:53 Dose: 500 ml Hydromorphone HCl (Dilaudid Injection -) 2 mg IVPB Q4H PRN PRN Reason: PAIN Last Admin: 10/13/16 02:51 Dose: 2 mg Piperacillin Sod/Tazobactam Sod (Zosyn 4.5gm Ivpb (Pre-Docked)) 100 mls @ 200 mls/hr IVPB Q6H-IV COLLIN PRN Reason: Protocol Last Admin: 10/13/16 02:47 Dose: 200 mls/hr Metronidazole (Flagyl 500mg Premixed Ivpb -) 100 mls @ 100 mls/hr IVPB Q8H-IV COLLIN Last Admin: 10/13/16 01:13 Dose: 100 mls/hr Amino Acids (Clinimix -) 1,000 mls @ 84 mls/hr IV Q12H COLLIN Last Admin: 10/13/16 01:13 Dose: Not Given Ondansetron HCl (Zofran Injection) 4 mg IVPB Q4H PRN Last Admin: 10/13/16 02:16 Dose: 4 mg Phenol/Menthol (Chloraseptic -) 2 spray MM Q4H PRN PRN Reason: THROAT IRRITATION Last Admin: 10/12/16 03:00 Dose: 2 spray - Objective Vital Signs: Vital Signs Temperature 99.3 F 10/13/16 05:55 Pulse Rate 101 H 10/13/16 05:55 Respiratory Rate 20 10/13/16 05:55 Blood Pressure 113/64 10/13/16 05:55 O2 Sat by Pulse Oximetry (%) 98 10/12/16 21:00 Cardiovascular: Yes: Regular Rate and Rhythm Respiratory: Yes: Regular, CTA Bilaterally Gastrointestinal: Yes: Soft, Distention, Tenderness Labs: CBC, BMP 10/12/16 06:00 10/12/16 06:00 INR, PTT INR 1.43 (0.82-1.09) H 10/12/16 06:00 Fibrinogen > 700.0 mg/dL (238-498) H 10/11/16 13:17 Problem List - Problems (1) Diverticulitis of intestine with perforation Assessment/Plan: IV ABX SURGICAL FOLLOW UP NOTED AND APPRECIATED IR --S/P- DRAINAGE FOLLOW LABS REFUSED SURGERY YESTERDAY Code(s): K57.80 - DVTRCLI OF INTEST, PART UNSP, W PERF AND ABSCESS W/O BLEED (2) Diverticulitis Assessment/Plan: ABOVE Code(s): K57.92 - DVTRCLI OF INTEST, PART UNSP, W/O PERF OR ABSCESS W/O BLEED Qualifiers: Diverticulitis site: large intestine Diverticulitis bleeding: without bleeding Diverticulitis complication: with abscess Qualified Code(s): K57.20 - Diverticulitis of large intestine with perforation and abscess without bleeding (3) Intra-abdominal abscess Assessment/Plan: ABOVE F/U CT SCAN NOTED--2ND DRAIN IN PLACE Code(s): K65.1 - PERITONEAL ABSCESS
[2016-10-13 07:53] LABS: INR 1.5 (0.82-1.09); PROTHROMBIN TIME (PATIENT) 16.6 SEC (9.98-11.88)
--- NOTE | 2016-10-13 09:50 | PN ---
Progress Note, Physician Chief Complaint: no chest pain or SOB - Current Medication List Current Medications: Active Medications Acetaminophen (Ofirmev Injection -) 1,000 mg IVPB Q6H PRN PRN Reason: PAIN Last Admin: 10/11/16 17:57 Dose: 1,000 mg Docusate Sodium (Colace -) 100 mg PO BID PRN PRN Reason: CONSTIPATION Fat Emulsion Intravenous (Intralipid -) 500 ml IV DAILY@2200 COLLIN Last Admin: 10/12/16 22:53 Dose: 500 ml Hydromorphone HCl (Dilaudid Injection -) 2 mg IVPB Q4H PRN PRN Reason: PAIN Last Admin: 10/13/16 09:28 Dose: 2 mg Piperacillin Sod/Tazobactam Sod (Zosyn 4.5gm Ivpb (Pre-Docked)) 100 mls @ 200 mls/hr IVPB Q6H-IV COLLIN PRN Reason: Protocol Last Admin: 10/13/16 09:27 Dose: 200 mls/hr Metronidazole (Flagyl 500mg Premixed Ivpb -) 100 mls @ 100 mls/hr IVPB Q8H-IV COLLIN Last Admin: 10/13/16 01:13 Dose: 100 mls/hr Amino Acids (Clinimix -) 1,000 mls @ 84 mls/hr IV Q12H COLLIN Last Admin: 10/13/16 01:13 Dose: Not Given Ondansetron HCl (Zofran Injection) 4 mg IVPB Q4H PRN Last Admin: 10/13/16 02:16 Dose: 4 mg Phenol/Menthol (Chloraseptic -) 2 spray MM Q4H PRN PRN Reason: THROAT IRRITATION Last Admin: 10/12/16 03:00 Dose: 2 spray - Objective Vital Signs: Vital Signs Temperature 99.3 F 10/13/16 05:55 Pulse Rate 101 H 10/13/16 05:55 Respiratory Rate 20 10/13/16 05:55 Blood Pressure 113/64 10/13/16 05:55 O2 Sat by Pulse Oximetry (%) 98 10/12/16 21:00 Constitutional: Yes: No Distress Cardiovascular: Yes: Regular Rate and Rhythm (no murmurs) Respiratory: Yes: CTA Bilaterally (mildly distended; no rebound or guarding tenderness) Edema: No Neurological: Yes: Alert Labs: CBC, BMP 10/12/16 06:00 10/12/16 06:00 INR, PTT INR 1.50 (0.82-1.09) H 10/13/16 06:10 Fibrinogen 576.0 mg/dL (238-498) H 10/13/16 06:10 Assessment/Plan 31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 Remains hemodynamically stable. May need surgery, no cardiac contraindications if deemed necessary- can proceed without any need for further cardiac diagnostic testing.
[2016-10-13 11:13] LABS: BASOPHIL 0.2 % (0-2.0); EOSINOPHIL 3.6 % (0-4.5); MCH 29.5 pg (25.7-33.7); MCHC 32.6 g/dl (32.0-36.0); MEAN CELL VOLUME 90.4 fl (80-96); MEAN PLT VOLUME 9.4 fl (7.5-11.1); NEUTROPHILS 78.3 % (42.8-82.8); PLATELET COUNT 291 K/MM3 (134-434); RDW 12.5 % (11.6-15.6); WHITE BLOOD COUNT 13.2 K/mm3 (4.0-10.0)
[2016-10-13 11:36] LABS: INR 1.45 (0.82-1.09); PROTHROMBIN TIME (PATIENT) 16.1 SEC (9.98-11.88)
[2016-10-13 11:38] LABS: ACTIVATED PTT 28.6 SECONDS (26.9-34.4)
[2016-10-13 11:39] LABS: ALBUMIN 2.5 g/dl (3.4-5.0); ALK PHOS 61 U/L (45-117); ANION GAP 11 (8-16); BILIRUBIN,TOTAL 0.4 mg/dL (0.2-1.0); CALCIUM 8.2 mg/dL (8.5-10.1); CO2 24 mmol/L (21-32); CREATININE 0.6 mg/dL (0.55-1.02); GLUCOSE,RANDOM 104 mg/dL (74-106); SGOT/AST 10 U/L (15-37); SGPT/ALT 15 U/L (12-78); TOT PROT 6.3 g/dl (6.4-8.2)
[2016-10-13] MEDS ORDERED: BACITRACIN 30 GM TUBE TOPICAL OINTMENT TP PRN (11:50)
--- NOTE | 2016-10-13 12:23 | PN ---
Progress Note, Physician History of Present Illness: Feeling better Less abdominal pain NGT removed NPO No fever/ chills Temps better WBC improved Cultures- polymicrobial - Current Medication List Current Medications: Active Medications Acetaminophen (Ofirmev Injection -) 1,000 mg IVPB Q6H PRN PRN Reason: PAIN Last Admin: 10/11/16 17:57 Dose: 1,000 mg Bacitracin (Bacitracin -) 1 applic TP BID PRN Last Admin: 10/13/16 12:01 Dose: 1 applic Docusate Sodium (Colace -) 100 mg PO BID PRN PRN Reason: CONSTIPATION Fat Emulsion Intravenous (Intralipid -) 500 ml IV DAILY@2200 COLLIN Last Admin: 10/12/16 22:53 Dose: 500 ml Hydromorphone HCl (Dilaudid Injection -) 2 mg IVPB Q4H PRN PRN Reason: PAIN Last Admin: 10/13/16 09:28 Dose: 2 mg Piperacillin Sod/Tazobactam Sod (Zosyn 4.5gm Ivpb (Pre-Docked)) 100 mls @ 200 mls/hr IVPB Q6H-IV COLLIN PRN Reason: Protocol Last Admin: 10/13/16 09:27 Dose: 200 mls/hr Metronidazole (Flagyl 500mg Premixed Ivpb -) 100 mls @ 100 mls/hr IVPB Q8H-IV COLLIN Last Admin: 10/13/16 10:17 Dose: 100 mls/hr Amino Acids (Clinimix -) 1,000 mls @ 84 mls/hr IV Q12H COLLIN Last Admin: 10/13/16 01:13 Dose: Not Given Ondansetron HCl (Zofran Injection) 4 mg IVPB Q4H PRN Last Admin: 10/13/16 02:16 Dose: 4 mg Phenol/Menthol (Chloraseptic -) 2 spray MM Q4H PRN PRN Reason: THROAT IRRITATION Last Admin: 10/12/16 03:00 Dose: 2 spray - Objective Vital Signs: Vital Signs Temperature 99.3 F 10/13/16 05:55 Pulse Rate 101 H 10/13/16 05:55 Respiratory Rate 20 10/13/16 05:55 Blood Pressure 113/64 10/13/16 05:55 O2 Sat by Pulse Oximetry (%) 98 10/12/16 21:00 Constitutional: Yes: No Distress Eyes: Yes: Conjunctiva Clear Cardiovascular: Yes: Regular Rate and Rhythm, S1, S2 Respiratory: Yes: CTA Bilaterally Gastrointestinal: Yes: Normal Bowel Sounds, Soft, Abdomen, Obese, Tenderness, Other (drainage tubes in place) Labs: CBC, BMP 10/13/16 10:54 10/13/16 10:54 INR, PTT INR 1.45 (0.82-1.09) H 10/13/16 10:54 Fibrinogen 576.0 mg/dL (238-498) H 10/13/16 06:10 Assessment/Plan Diverticular abscesses s/p percutaneous drainage Complicated sigmoid diverticulitis Continue zosyn Await final cultures
[2016-10-13 13:16] LABS: ERYTHROCYTE SEDIMENTATION RATE 98 mm/hr (0-20)
--- NOTE | 2016-10-13 17:19 | PN ---
GI Progress Note Subjective: clinically improved, abdominal pain resolving - Objective Vital Signs: Vital Signs Temperature 99.6 F 10/13/16 15:04 Pulse Rate 91 H 10/13/16 15:04 Respiratory Rate 20 10/13/16 15:04 Blood Pressure 107/63 10/13/16 15:04 O2 Sat by Pulse Oximetry (%) 98 10/12/16 21:00 Constitutional: Well Nourished Eyes: Yes: Conjunctiva Clear HENT: Yes: Atraumatic Neck: Yes: Trachea Midline Cardiovascular: Yes: Regular Rate and Rhythm Respiratory: Yes: CTA Bilaterally ...Palpate: Yes: Soft, Tenderness (--disffuse lower abdomen). No: Firm/Rigid, Guarding, Hepatomegaly, Mass, Pulsatile Mass, Splenomegaly Labs: CBC, BMP 10/13/16 10:54 10/13/16 10:54 INR, PTT INR 1.45 (0.82-1.09) H 10/13/16 10:54 Fibrinogen 576.0 mg/dL (238-498) H 10/13/16 06:10 Problem List - Problems (1) Intra-abdominal abscess Assessment/Plan: R> continue IV hydration continue antibiotics Code(s): K65.1 - PERITONEAL ABSCESS
[2016-10-13] MEDS: INSULIN SLIDING SCALE (NOVOLOG) 1 VIAL SQ SCH (18:34)
[2016-10-13] MEDS: FAT EMULSIONS 20% 500 ML PREMIX INFUS.BAG IV SCH (22:06)
--- NOTE | 2016-10-13 22:38 | PN ---
Progress Note (short form) - Note Progress Note: PAtient seen and examined feels better AFVSS Cor: RSR, No murmurs, No gallops Lungs: Clear to P&A (ant.) Abd: Soft, Normal bowel sounds, + drains Ext:No significant edema Labs reviewed Meds reviewed A/P 31 y/o patient with diverticulitis, intraabdominal abscesses, s/p IR drains on iv antibiotics coagulopathy improving will give additional vit. k
[2016-10-14] MEDS: INSULIN SLIDING SCALE (NOVOLOG) 1 VIAL SQ SCH ×4 (01:25→17:38)
[2016-10-14] MEDS: METRONIDAZOLE 500 MG PREMIXED 100 ML IVPB SCH ×3 (01:26→17:35)
[2016-10-14] MEDS: ONDANSETRON 4 MG/2 ML VIAL IVPB PRN ×4 (01:42→20:39)
[2016-10-14] MEDS: HYDROmorphone HCL CARPU-JECT 2 MG/1 ML DISP.SYRIN IVPB PRN ×3 (02:28→20:21)
[2016-10-14] MEDS: PIPERACILLIN/TAZOB 4.5 GM 100 ML IVPB SCH ×4 (03:00→21:21)
[2016-10-14] MEDS: AMINO ACIDS 4.25%/D5W 1,000 ML IV SCH ×4 (03:04→23:40)
[2016-10-14 07:26] LABS: BASOPHIL 0.3 % (0-2.0); EOSINOPHIL 4.6 % (0-4.5); MCH 30.8 pg (25.7-33.7); MCHC 33.9 g/dl (32.0-36.0); MEAN CELL VOLUME 90.8 fl (80-96); MEAN PLT VOLUME 9.8 fl (7.5-11.1); NEUTROPHILS 72.1 % (42.8-82.8); PLATELET COUNT 282 K/MM3 (134-434); RDW 12.6 % (11.6-15.6); WHITE BLOOD COUNT 10.8 K/mm3 (4.0-10.0)
--- NOTE | 2016-10-14 07:37 | PN ---
Progress Note, Physician History of Present Illness: PT WITH ABDOMINAL PAIN--STATES BETTER THAN YESTERDAY - Current Medication List Current Medications: Active Medications Acetaminophen (Ofirmev Injection -) 1,000 mg IVPB Q6H PRN PRN Reason: PAIN Last Admin: 10/11/16 17:57 Dose: 1,000 mg Bacitracin (Bacitracin -) 1 applic TP BID PRN Last Admin: 10/13/16 12:01 Dose: 1 applic Docusate Sodium (Colace -) 100 mg PO BID PRN PRN Reason: CONSTIPATION Fat Emulsion Intravenous (Intralipid -) 500 ml IV DAILY@2200 COLLIN Last Admin: 10/13/16 22:06 Dose: 500 ml Hydromorphone HCl (Dilaudid Injection -) 2 mg IVPB Q4H PRN PRN Reason: PAIN Last Admin: 10/14/16 02:28 Dose: 2 mg Piperacillin Sod/Tazobactam Sod (Zosyn 4.5gm Ivpb (Pre-Docked)) 100 mls @ 200 mls/hr IVPB Q6H-IV COLLIN PRN Reason: Protocol Last Admin: 10/14/16 03:00 Dose: 200 mls/hr Metronidazole (Flagyl 500mg Premixed Ivpb -) 100 mls @ 100 mls/hr IVPB Q8H-IV COLLIN Last Admin: 10/14/16 01:26 Dose: 100 mls/hr Amino Acids (Clinimix -) 1,000 mls @ 84 mls/hr IV Q12H COLLIN Last Admin: 10/14/16 03:04 Dose: 84 mls/hr Insulin Aspart (Novolog Vial Sliding Scale -) 1 vial SQ Q6H COLLIN PRN Reason: Protocol Last Admin: 10/14/16 06:20 Dose: Not Given Ondansetron HCl (Zofran Injection) 4 mg IVPB Q4H PRN Last Admin: 10/14/16 06:55 Dose: 4 mg Phenol/Menthol (Chloraseptic -) 2 spray MM Q4H PRN PRN Reason: THROAT IRRITATION Last Admin: 10/12/16 03:00 Dose: 2 spray Phytonadione (Aqua Mephyton Injection -) 5 mg SQ DAILY [facility] Stop: 10/15/16 10:01 - Objective Vital Signs: Vital Signs Temperature 100.2 F H 10/14/16 06:00 Pulse Rate 102 H 10/14/16 06:00 Respiratory Rate 20 10/14/16 06:00 Blood Pressure 115/62 10/14/16 06:00 O2 Sat by Pulse Oximetry (%) 97 10/13/16 21:00 Cardiovascular: Yes: Regular Rate and Rhythm Respiratory: Yes: Regular, CTA Bilaterally Gastrointestinal: Yes: Normal Bowel Sounds, Soft, Tenderness Labs: INR, PTT INR 1.45 (0.82-1.09) H 10/13/16 10:54 Fibrinogen 576.0 mg/dL (238-498) H 10/13/16 06:10 Problem List - Problems (1) Diverticulitis of intestine with perforation Assessment/Plan: IV ABX SURGICAL FOLLOW UP NOTED AND APPRECIATED IR --S/P- DRAINAGE FOLLOW LABS Code(s): K57.80 - DVTRCLI OF INTEST, PART UNSP, W PERF AND ABSCESS W/O BLEED (2) Diverticulitis Assessment/Plan: ABOVE Code(s): K57.92 - DVTRCLI OF INTEST, PART UNSP, W/O PERF OR ABSCESS W/O BLEED Qualifiers: Diverticulitis site: large intestine Diverticulitis bleeding: without bleeding Diverticulitis complication: with abscess Qualified Code(s): K57.20 - Diverticulitis of large intestine with perforation and abscess without bleeding (3) Intra-abdominal abscess Assessment/Plan: ABOVE F/U CT SCAN NOTED--2ND DRAIN IN PLACE CT IN AM Code(s): K65.1 - PERITONEAL ABSCESS
[2016-10-14 07:46] LABS: ALBUMIN 2.1 g/dl (3.4-5.0); ALK PHOS 50 U/L (45-117); ANION GAP 10 (8-16); BILIRUBIN,TOTAL 0.2 mg/dL (0.2-1.0); CALCIUM 7.5 mg/dL (8.5-10.1); CO2 26 mmol/L (21-32); CREATININE 0.6 mg/dL (0.55-1.02); GLUCOSE,RANDOM 113 mg/dL (74-106); SGOT/AST 19 U/L (15-37); SGPT/ALT 16 U/L (12-78); TOT PROT 5.5 g/dl (6.4-8.2)
[2016-10-14] MEDS: ENOXAPARIN NA (PORCINE) 40 MG/0.4 ML DISP.SYRIN SQ SCH (09:54)
[2016-10-14] MEDS: PHYTONADIONE 10 MG/1 ML AMP SQ SCH (10:09)
--- NOTE | 2016-10-14 12:57 | PN ---
Progress Note (short form) - Note Progress Note: surgery pt seen and examined. feels well. hungry. loose bms. tmax 100.3 abd- soft, mild llq tenderness, mild distension, drains 10 and 5 ml pus Laboratory Tests 10/14/16 06:00 WBC 10.8 H cultures show sensitive e.coli Plan- cont npo, cont iv abx. re-scan tomorrow per ir. pt wishes to avoid surgery and colostomy at this point and will therefor cont medical management. Pt and family offered surgical exploration and declines.
[2016-10-14] MEDS: ACETAMINOPHEN 1000 MG/100 ML VIAL (NON FORMULARY) IVPB PRN (15:36)
--- NOTE | 2016-10-14 15:49 | PN ---
Progress Note, Physician History of Present Illness: OOB in chair Less abdominal pain + Flatus/ BM Low grade temp noted WBC improved - Current Medication List Current Medications: Active Medications Acetaminophen (Ofirmev Injection -) 1,000 mg IVPB Q6H PRN PRN Reason: PAIN Last Admin: 10/14/16 15:36 Dose: 1,000 mg Bacitracin (Bacitracin -) 1 applic TP BID PRN Last Admin: 10/13/16 12:01 Dose: 1 applic Docusate Sodium (Colace -) 100 mg PO BID PRN PRN Reason: CONSTIPATION Enoxaparin Sodium (Lovenox -) 40 mg SQ DAILY COLLIN Last Admin: 10/14/16 09:54 Dose: 40 mg Fat Emulsion Intravenous (Intralipid -) 500 ml IV DAILY@2200 COLLIN Last Admin: 10/13/16 22:06 Dose: 500 ml Hydromorphone HCl (Dilaudid Injection -) 2 mg IVPB Q4H PRN PRN Reason: PAIN Last Admin: 10/14/16 09:53 Dose: 2 mg Piperacillin Sod/Tazobactam Sod (Zosyn 4.5gm Ivpb (Pre-Docked)) 100 mls @ 200 mls/hr IVPB Q6H-IV COLLIN PRN Reason: Protocol Last Admin: 10/14/16 15:38 Dose: 200 mls/hr Metronidazole (Flagyl 500mg Premixed Ivpb -) 100 mls @ 100 mls/hr IVPB Q8H-IV COLLNI Last Admin: 10/14/16 10:26 Dose: 100 mls/hr Amino Acids (Clinimix -) 1,000 mls @ 84 mls/hr IV Q12H COLLIN Last Admin: 10/14/16 15:38 Dose: 84 mls/hr Insulin Aspart (Novolog Vial Sliding Scale -) 1 vial SQ Q6H COLLIN PRN Reason: Protocol Last Admin: 10/14/16 13:07 Dose: Not Given Ondansetron HCl (Zofran Injection) 4 mg IVPB Q4H PRN Last Admin: 10/14/16 09:55 Dose: 4 mg Phenol/Menthol (Chloraseptic -) 2 spray MM Q4H PRN PRN Reason: THROAT IRRITATION Last Admin: 10/12/16 03:00 Dose: 2 spray Phytonadione (Aqua Mephyton Injection -) 5 mg SQ DAILY COLLIN Stop: 10/15/16 10:01 Last Admin: 10/14/16 10:09 Dose: 5 mg - Objective Vital Signs: Vital Signs Temperature 99.6 F 10/14/16 13:55 Pulse Rate 93 H 10/14/16 13:55 Respiratory Rate 20 10/14/16 13:55 Blood Pressure 114/64 10/14/16 13:55 O2 Sat by Pulse Oximetry (%) 97 10/13/16 21:00 Constitutional: Yes: No Distress Eyes: Yes: Conjunctiva Clear Cardiovascular: Yes: Regular Rate and Rhythm, S1, S2 Respiratory: Yes: Diminished Gastrointestinal: Yes: Normal Bowel Sounds, Soft, Abdomen, Obese, Tenderness, Other (Drains in place) Labs: CBC, BMP 10/14/16 06:00 10/14/16 06:00 INR, PTT INR 1.45 (0.82-1.09) H 10/13/16 10:54 Fibrinogen 576.0 mg/dL (238-498) H 10/13/16 06:10 Assessment/Plan Diverticular abscesses s/p percutaneous drainage Complicated sigmoid diverticulitis Fever/leukocytosis- improved Continue zosyn Await final cultures
[2016-10-14] MEDS: KCL 10 MEQ IVPB 100 ML IVPB SCH ×2 (18:30→20:40)
[2016-10-14] MEDS: FAT EMULSIONS 20% 500 ML PREMIX INFUS.BAG IV SCH (21:48)
[2016-10-15] MEDS: INSULIN SLIDING SCALE (NOVOLOG) 1 VIAL SQ SCH ×4 (00:17→18:14)
[2016-10-15] MEDS: METRONIDAZOLE 500 MG PREMIXED 100 ML IVPB SCH ×3 (02:08→18:35)
[2016-10-15] MEDS: ONDANSETRON 4 MG/2 ML VIAL IVPB PRN ×5 (03:11→22:28)
[2016-10-15] MEDS: PIPERACILLIN/TAZOB 4.5 GM 100 ML IVPB SCH ×3 (03:12→18:05)
[2016-10-15] MEDS: AMINO ACIDS 4.25%/D5W 1,000 ML IV SCH (03:41)
[2016-10-15] MEDS: ACETAMINOPHEN 1000 MG/100 ML VIAL (NON FORMULARY) IVPB PRN ×2 (03:51→23:19)
--- NOTE | 2016-10-15 07:41 | PN ---
Progress Note, Physician History of Present Illness: PT WITH ABDOMINAL PAIN--LESS PER PT VOMITING WITH MOVEMENT - Current Medication List Current Medications: Active Medications Acetaminophen (Ofirmev Injection -) 1,000 mg IVPB Q6H PRN PRN Reason: PAIN Last Admin: 10/15/16 03:51 Dose: 1,000 mg Bacitracin (Bacitracin -) 1 applic TP BID PRN Last Admin: 10/13/16 12:01 Dose: 1 applic Docusate Sodium (Colace -) 100 mg PO BID PRN PRN Reason: CONSTIPATION Enoxaparin Sodium (Lovenox -) 40 mg SQ DAILY REPLACED BY [facility] Last Admin: 10/14/16 09:54 Dose: 40 mg Fat Emulsion Intravenous (Intralipid -) 500 ml IV DAILY@2200 REPLACED BY [facility] Last Admin: 10/14/16 21:48 Dose: 500 ml Hydromorphone HCl (Dilaudid Injection -) 2 mg IVPB Q4H PRN PRN Reason: PAIN Last Admin: 10/14/16 20:21 Dose: 2 mg Piperacillin Sod/Tazobactam Sod (Zosyn 4.5gm Ivpb (Pre-Docked)) 100 mls @ 200 mls/hr IVPB Q6H-IV COLLIN PRN Reason: Protocol Last Admin: 10/15/16 03:12 Dose: 200 mls/hr Metronidazole (Flagyl 500mg Premixed Ivpb -) 100 mls @ 100 mls/hr IVPB Q8H-IV COLLIN Last Admin: 10/15/16 02:08 Dose: 100 mls/hr Amino Acids (Clinimix -) 1,000 mls @ 84 mls/hr IV Q12H REPLACED BY [facility] Last Admin: 10/15/16 03:41 Dose: 84 mls/hr Insulin Aspart (Novolog Vial Sliding Scale -) 1 vial SQ Q6H COLLIN PRN Reason: Protocol Last Admin: 10/14/16 17:38 Dose: Not Given Ondansetron HCl (Zofran Injection) 4 mg IVPB Q4H PRN Last Admin: 10/15/16 07:08 Dose: 4 mg Phenol/Menthol (Chloraseptic -) 2 spray MM Q4H PRN PRN Reason: THROAT IRRITATION Last Admin: 10/12/16 03:00 Dose: 2 spray Phytonadione (Aqua Mephyton Injection -) 5 mg SQ DAILY REPLACED BY [facility] Stop: 10/15/16 10:01 Last Admin: 10/14/16 10:09 Dose: 5 mg - Objective Vital Signs: Vital Signs Temperature 99.2 F 10/15/16 06:00 Pulse Rate 98 H 10/15/16 06:00 Respiratory Rate 18 10/15/16 06:00 Blood Pressure 122/72 10/15/16 06:00 O2 Sat by Pulse Oximetry (%) 97 10/14/16 21:00 Cardiovascular: Yes: Regular Rate and Rhythm Respiratory: Yes: Regular, CTA Bilaterally Gastrointestinal: Yes: Normal Bowel Sounds, Soft, Tenderness (RLQ) Labs: CBC, BMP 10/14/16 06:00 10/14/16 06:00 INR, PTT INR 1.45 (0.82-1.09) H 10/13/16 10:54 Fibrinogen 576.0 mg/dL (238-498) H 10/13/16 06:10 Problem List - Problems (1) Diverticulitis of intestine with perforation Assessment/Plan: IV ABX SURGICAL FOLLOW UP NOTED AND APPRECIATED IR --S/P- DRAINAGE FOLLOW LABS Code(s): K57.80 - DVTRCLI OF INTEST, PART UNSP, W PERF AND ABSCESS W/O BLEED (2) Diverticulitis Assessment/Plan: ABOVE Code(s): K57.92 - DVTRCLI OF INTEST, PART UNSP, W/O PERF OR ABSCESS W/O BLEED Qualifiers: Diverticulitis site: large intestine Diverticulitis bleeding: without bleeding Diverticulitis complication: with abscess Qualified Code(s): K57.20 - Diverticulitis of large intestine with perforation and abscess without bleeding (3) Intra-abdominal abscess Assessment/Plan: ABOVE F/U CT SCAN NOTED--2ND DRAIN IN PLACE CT TODAY SURGICAL F/U Code(s): K65.1 - PERITONEAL ABSCESS
[2016-10-15 08:44] LABS: MCH 30.4 pg (25.7-33.7); MCHC 33.9 g/dl (32.0-36.0); MEAN CELL VOLUME 89.5 fl (80-96); MEAN PLT VOLUME 9.7 fl (7.5-11.1); PLATELET COUNT 318 K/MM3 (134-434); RDW 12.2 % (11.6-15.6); WHITE BLOOD COUNT 11.7 K/mm3 (4.0-10.0)
[2016-10-15 08:55] LABS: INR 1.38 (0.82-1.09); PROTHROMBIN TIME (PATIENT) 15.3 SEC (9.98-11.88)
[2016-10-15 09:07] LABS: ALBUMIN 2.4 g/dl (3.4-5.0); ALK PHOS 55 U/L (45-117); ANION GAP 8 (8-16); BILIRUBIN,TOTAL 0.2 mg/dL (0.2-1.0); C-REACTIVE PROTEIN 11.6 MG/DL (0.00-0.3); CO2 29 mmol/L (21-32); CREATININE 0.6 mg/dL (0.55-1.02); GLUCOSE,RANDOM 109 mg/dL (74-106); SGOT/AST 14 U/L (15-37); SGPT/ALT 15 U/L (12-78); TOT PROT 5.8 g/dl (6.4-8.2)
[2016-10-15] MEDS: PHYTONADIONE 10 MG/1 ML AMP SQ SCH (09:28)
[2016-10-15] MEDS: ENOXAPARIN NA (PORCINE) 40 MG/0.4 ML DISP.SYRIN SQ SCH (09:28)
[2016-10-15 09:54] LABS: PLATELET ESTIMATE ADEQUATE (NORMAL)
--- NOTE | 2016-10-15 10:05 | PN ---
Progress Note (short form) - Note Progress Note: Patient seen and examined Had CT scan this A.M. - results pending Continues N.P.O Last Vital Signs Temp Pulse Resp BP Pulse Ox 98.4 F 89 18 123/66 97 10/15/16 09:37 10/15/16 09:37 10/15/16 09:37 10/15/16 09:37 10/14/16 21:00 No icterus, [place], EOMintact Lungs- clear to P & A Cor-RSR Abd- tenderness at tube site. active bowel sites Ext- no calf tenderness CBC, BMP 10/15/16 07:00 10/15/16 07:00 INR, PTT INR 1.38 (0.82-1.09) H 10/15/16 07:00 Fibrinogen 576.0 mg/dL (238-498) H 10/13/16 06:10 Current Medications Generic Name Dose Route Start Last Admin Trade Name Freq PRN Reason Stop Dose Admin Acetaminophen 1,000 mg 10/08/16 22:31 10/15/16 03:51 Ofirmev Injection - IVPB 1,000 mg Q6H PRN Administration PAIN Bacitracin 1 applic 10/13/16 11:50 10/13/16 12:01 Bacitracin - TP 1 applic BID PRN Administration Docusate Sodium 100 mg 10/08/16 20:34 Colace - PO BID PRN CONSTIPATION Enoxaparin Sodium 40 mg 10/14/16 10:00 10/15/16 09:28 Lovenox - SQ 40 mg DAILY COLLIN Administration Fat Emulsion Intravenous 500 ml 10/12/16 22:00 10/14/16 21:48 Intralipid - IV 500 ml DAILY@2200 COLLIN Administration Hydromorphone HCl 2 mg 10/12/16 21:50 10/14/16 20:21 Dilaudid Injection - IVPB 2 mg Q4H PRN Administration PAIN Piperacillin Sod/Tazobactam Sod 100 mls @ 200 mls/hr 10/09/16 11:15 10/15/16 09 :28 Zosyn 4.5gm Ivpb (Pre-Docked) IVPB 200 mls/hr Q6H-IV COLLIN Administration Protocol Metronidazole 100 mls @ 100 mls/hr 10/11/16 19:15 10/15/16 02:08 Flagyl 500mg Premixed Ivpb - IVPB 100 mls/hr Q8H-IV COLLIN Administration Potassium Chloride 20 meq/ 1,010 mls @ 84 mls/hr 10/15/16 10:01 Amino Acids IVPB Q12H COLLIN Potassium Chloride 100 mls @ 100 mls/hr 10/15/16 10:00 Potassium Chloride 10 Meq Premix Ivpb - IVPB 10/15/16 12:59 Q60M REPLACED BY [facility] Insulin Aspart 1 vial 10/13/16 18:00 10/15/16 07:18 Novolog Vial Sliding Scale - SQ Not Given Q6H REPLACED BY [facility] Protocol Ondansetron HCl 4 mg 10/11/16 19:13 10/15/16 07:08 Zofran Injection IVPB 4 mg Q4H PRN Administration Phenol/Menthol 2 spray 10/11/16 21:31 10/12/16 03:00 Chloraseptic - MM 2 spray Q4H PRN Administration THROAT IRRITATION Impression: Diverticular abscess - s/p drainage N.P.O. Hypokalemia Coagulopathy Plan: Continuing on conservative therapy Replete K+
[2016-10-15] MEDS: KCL 10 MEQ IVPB 100 ML IVPB SCH ×3 (11:03→19:55)
[2016-10-15] MEDS ORDERED: HYDROmorphone HCL CARPU-JECT 1 MG/1 ML DISP.SYRIN IVPB ONE (13:00)
[2016-10-15] MEDS: POTASSIUM CHLORIDE 20 MEQ in AMINO ACIDS 4.25%/D5W 1,000 ML IVPB SCH (14:02)
--- NOTE | 2016-10-15 14:59 | PN ---
Progress Note, Physician History of Present Illness: No c/o abdominal pain at rest No c/o fever/ chills Low grade temp noted WBC 11 Abdominal c/s polymicrobial - Current Medication List Current Medications: Active Medications Acetaminophen (Ofirmev Injection -) 1,000 mg IVPB Q6H PRN PRN Reason: PAIN Last Admin: 10/15/16 03:51 Dose: 1,000 mg Bacitracin (Bacitracin -) 1 applic TP BID PRN Last Admin: 10/13/16 12:01 Dose: 1 applic Docusate Sodium (Colace -) 100 mg PO BID PRN PRN Reason: CONSTIPATION Enoxaparin Sodium (Lovenox -) 40 mg SQ DAILY [facility] Last Admin: 10/15/16 09:28 Dose: 40 mg Fat Emulsion Intravenous (Intralipid -) 500 ml IV DAILY@2200 [facility] Last Admin: 10/14/16 21:48 Dose: 500 ml Hydromorphone HCl (Dilaudid Injection -) 2 mg IVPB Q4H PRN PRN Reason: PAIN Last Admin: 10/14/16 20:21 Dose: 2 mg Piperacillin Sod/Tazobactam Sod (Zosyn 4.5gm Ivpb (Pre-Docked)) 100 mls @ 200 mls/hr IVPB Q6H-IV COLLIN PRN Reason: Protocol Last Admin: 10/15/16 09:28 Dose: 200 mls/hr Metronidazole (Flagyl 500mg Premixed Ivpb -) 100 mls @ 100 mls/hr IVPB Q8H-IV COLLIN Last Admin: 10/15/16 02:08 Dose: 100 mls/hr Potassium Chloride 20 meq/ (Amino Acids) 1,010 mls @ 84 mls/hr IVPB Q12H [facility] Last Admin: 10/15/16 14:02 Dose: 84 mls/hr Insulin Aspart (Novolog Vial Sliding Scale -) 1 vial SQ Q6H COLLIN PRN Reason: Protocol Last Admin: 10/15/16 07:18 Dose: Not Given Ondansetron HCl (Zofran Injection) 4 mg IVPB Q4H PRN Last Admin: 10/15/16 12:19 Dose: 4 mg Phenol/Menthol (Chloraseptic -) 2 spray MM Q4H PRN PRN Reason: THROAT IRRITATION Last Admin: 10/12/16 03:00 Dose: 2 spray - Objective Vital Signs: Vital Signs Temperature 98.4 F 10/15/16 09:37 Pulse Rate 89 10/15/16 09:37 Respiratory Rate 18 10/15/16 09:37 Blood Pressure 123/66 10/15/16 09:37 O2 Sat by Pulse Oximetry (%) 97 10/14/16 21:00 Constitutional: Yes: No Distress Eyes: Yes: Conjunctiva Clear Cardiovascular: Yes: Regular Rate and Rhythm, S1, S2 Respiratory: Yes: CTA Bilaterally Gastrointestinal: Yes: Normal Bowel Sounds, Soft, Tenderness, Other (mild lower abdominal tenderness) Labs: CBC, BMP 10/15/16 07:00 10/15/16 07:00 INR, PTT INR 1.38 (0.82-1.09) H 10/15/16 07:00 Fibrinogen 576.0 mg/dL (238-498) H 10/13/16 06:10 Assessment/Plan Diverticular abscesses s/p percutaneous drainage Complicated sigmoid diverticulitis Fever/leukocytosis- improved Continue zosyn Await final cultures
[2016-10-15] MEDS ORDERED: KCL 10 MEQ IVPB 100 ML IVPB ONE (18:45)
--- NOTE | 2016-10-15 20:57 | PN ---
Progress Note (short form) - Note Progress Note: surgery pt seen and examined. This afternoon. feels well. not hungry but thirsty. Ct shows significant improvement. catheters in good position afebrile abd- soft, mild llq tenderness, still mild distension, drains with some pus Laboratory Tests 10/15/16 07:00 WBC 11.7 H cultures show sensitive e.coli Plan- cont npo, cont iv abx. pt wishes to avoid surgery and colostomy at this point and will therefore cont medical management. Pt and family offered surgical exploration and declines. Will follow.
[2016-10-15] MEDS: FAT EMULSIONS 20% 500 ML PREMIX INFUS.BAG IV SCH (23:21)
[2016-10-16] MEDS: PIPERACILLIN/TAZOB 4.5 GM 100 ML IVPB SCH ×5 (00:06→22:04)
[2016-10-16] MEDS: INSULIN SLIDING SCALE (NOVOLOG) 1 VIAL SQ SCH ×2 (00:06→06:10)
[2016-10-16] MEDS: POTASSIUM CHLORIDE 20 MEQ in AMINO ACIDS 4.25%/D5W 1,000 ML IVPB SCH (00:06)
[2016-10-16] MEDS: METRONIDAZOLE 500 MG PREMIXED 100 ML IVPB SCH ×3 (03:13→18:15)
[2016-10-16] MEDS: ACETAMINOPHEN 1000 MG/100 ML VIAL (NON FORMULARY) IVPB PRN ×3 (06:11→21:10)
[2016-10-16 07:42] LABS: BASOPHIL 0.3 % (0-2.0); EOSINOPHIL 3.5 % (0-4.5); MCH 30.4 pg (25.7-33.7); MCHC 34.4 g/dl (32.0-36.0); MEAN CELL VOLUME 88.5 fl (80-96); MEAN PLT VOLUME 9.6 fl (7.5-11.1); NEUTROPHILS 75.5 % (42.8-82.8); PLATELET COUNT 274 K/MM3 (134-434); RDW 12.2 % (11.6-15.6); WHITE BLOOD COUNT 11.8 K/mm3 (4.0-10.0)
--- NOTE | 2016-10-16 08:05 | PN ---
Progress Note, Physician History of Present Illness: FEELS BETTER NO N/V - Current Medication List Current Medications: Active Medications Acetaminophen (Ofirmev Injection -) 1,000 mg IVPB Q6H PRN PRN Reason: PAIN Last Admin: 10/16/16 06:11 Dose: 1,000 mg Bacitracin (Bacitracin -) 1 applic TP BID PRN Last Admin: 10/13/16 12:01 Dose: 1 applic Docusate Sodium (Colace -) 100 mg PO BID PRN PRN Reason: CONSTIPATION Enoxaparin Sodium (Lovenox -) 40 mg SQ DAILY [facility] Last Admin: 10/15/16 09:28 Dose: 40 mg Fat Emulsion Intravenous (Intralipid -) 500 ml IV DAILY@2200 [facility] Last Admin: 10/15/16 23:21 Dose: 500 ml Piperacillin Sod/Tazobactam Sod (Zosyn 4.5gm Ivpb (Pre-Docked)) 100 mls @ 200 mls/hr IVPB Q6H-IV COLLIN PRN Reason: Protocol Last Admin: 10/16/16 04:36 Dose: 200 mls/hr Metronidazole (Flagyl 500mg Premixed Ivpb -) 100 mls @ 100 mls/hr IVPB Q8H-IV COLLIN Last Admin: 10/16/16 03:13 Dose: 100 mls/hr Potassium Chloride 20 meq/ (Amino Acids) 1,010 mls @ 84 mls/hr IVPB Q12H [facility] Last Admin: 10/16/16 00:06 Dose: 84 mls/hr Insulin Aspart (Novolog Vial Sliding Scale -) 1 vial SQ Q6H COLLIN PRN Reason: Protocol Last Admin: 10/16/16 06:10 Dose: Not Given Ondansetron HCl (Zofran Injection) 4 mg IVPB Q4H PRN Last Admin: 10/15/16 22:28 Dose: 4 mg Phenol/Menthol (Chloraseptic -) 2 spray MM Q4H PRN PRN Reason: THROAT IRRITATION Last Admin: 10/12/16 03:00 Dose: 2 spray - Objective Vital Signs: Vital Signs Temperature 99.4 F 10/15/16 22:00 Pulse Rate 80 10/15/16 22:00 Respiratory Rate 20 10/15/16 22:00 Blood Pressure 117/69 10/15/16 22:00 O2 Sat by Pulse Oximetry (%) 97 10/15/16 09:00 Cardiovascular: Yes: Regular Rate and Rhythm Respiratory: Yes: Regular, CTA Bilaterally Gastrointestinal: Yes: Normal Bowel Sounds, Soft, Tenderness (LES) Labs: INR, PTT INR 1.38 (0.82-1.09) H 10/15/16 07:00 Fibrinogen 576.0 mg/dL (238-498) H 10/13/16 06:10 Problem List - Problems (1) Diverticulitis of intestine with perforation Assessment/Plan: IV ABX SURGICAL FOLLOW UP NOTED AND APPRECIATED IR --S/P- DRAINAGE FOLLOW LABS Code(s): K57.80 - DVTRCLI OF INTEST, PART UNSP, W PERF AND ABSCESS W/O BLEED (2) Diverticulitis Assessment/Plan: ABOVE Code(s): K57.92 - DVTRCLI OF INTEST, PART UNSP, W/O PERF OR ABSCESS W/O BLEED Qualifiers: Diverticulitis site: large intestine Diverticulitis bleeding: without bleeding Diverticulitis complication: with abscess Qualified Code(s): K57.20 - Diverticulitis of large intestine with perforation and abscess without bleeding (3) Intra-abdominal abscess Assessment/Plan: ABOVE F/U CT SCAN NOTED--2ND DRAIN IN PLACE CT TODAY SURGICAL F/U Code(s): K65.1 - PERITONEAL ABSCESS
[2016-10-16 08:09] LABS: ALBUMIN 2.2 g/dl (3.4-5.0); ANION GAP 11 (8-16); CALCIUM 7.5 mg/dL (8.5-10.1); CO2 26 mmol/L (21-32); CREATININE 0.6 mg/dL (0.55-1.02); GLUCOSE,RANDOM 120 mg/dL (74-106); SGOT/AST 26 U/L (15-37); SGPT/ALT 21 U/L (12-78)
[2016-10-16 08:10] LABS: ALK PHOS 42 U/L (45-117); BILIRUBIN,TOTAL 0.2 mg/dL (0.2-1.0); TOT PROT 5.4 g/dl (6.4-8.2)
[2016-10-16] MEDS: ONDANSETRON 4 MG/2 ML VIAL IVPB PRN ×2 (08:32→17:33)
[2016-10-16] MEDS: KCL 10 MEQ IVPB 100 ML IVPB SCH ×3 (09:27→11:27)
--- NOTE | 2016-10-16 10:16 | PN ---
Progress Note, Physician History of Present Illness: No c/o abdominal pain No fever/ chills Afebrile WBC remains down NPO - Current Medication List Current Medications: Active Medications Acetaminophen (Ofirmev Injection -) 1,000 mg IVPB Q6H PRN PRN Reason: PAIN Last Admin: 10/16/16 06:11 Dose: 1,000 mg Bacitracin (Bacitracin -) 1 applic TP BID PRN Last Admin: 10/13/16 12:01 Dose: 1 applic Docusate Sodium (Colace -) 100 mg PO BID PRN PRN Reason: CONSTIPATION Enoxaparin Sodium (Lovenox -) 40 mg SQ DAILY [facility] Last Admin: 10/15/16 09:28 Dose: 40 mg Fat Emulsion Intravenous (Intralipid -) 500 ml IV DAILY@2200 [facility] Last Admin: 10/15/16 23:21 Dose: 500 ml Piperacillin Sod/Tazobactam Sod (Zosyn 4.5gm Ivpb (Pre-Docked)) 100 mls @ 200 mls/hr IVPB Q6H-IV COLLIN PRN Reason: Protocol Last Admin: 10/16/16 09:24 Dose: 200 mls/hr Metronidazole (Flagyl 500mg Premixed Ivpb -) 100 mls @ 100 mls/hr IVPB Q8H-IV COLLIN Last Admin: 10/16/16 03:13 Dose: 100 mls/hr Potassium Chloride 60 meq/ (Amino Acids) 1,030 mls @ 84 mls/hr IVPB Q12H COLLIN Potassium Chloride (Potassium Chloride 10 Meq Premix Ivpb -) 100 mls @ 100 mls/ hr IVPB Q60M [facility] Stop: 10/16/16 12:29 Last Admin: 10/16/16 09:27 Dose: 100 mls/hr Ondansetron HCl (Zofran Injection) 4 mg IVPB Q4H PRN Last Admin: 10/16/16 08:32 Dose: 4 mg Phenol/Menthol (Chloraseptic -) 2 spray MM Q4H PRN PRN Reason: THROAT IRRITATION Last Admin: 10/12/16 03:00 Dose: 2 spray - Objective Vital Signs: Vital Signs Temperature 99.4 F 10/15/16 22:00 Pulse Rate 80 10/15/16 22:00 Respiratory Rate 20 10/15/16 22:00 Blood Pressure 117/69 10/15/16 22:00 O2 Sat by Pulse Oximetry (%) 97 10/15/16 09:00 Constitutional: Yes: No Distress Eyes: Yes: Conjunctiva Clear Cardiovascular: Yes: Regular Rate and Rhythm, S1, S2 Respiratory: Yes: CTA Bilaterally Gastrointestinal: Yes: Normal Bowel Sounds, Soft. No: Tenderness Labs: CBC, BMP 10/16/16 06:00 10/16/16 06:00 INR, PTT INR 1.38 (0.82-1.09) H 10/15/16 07:00 Fibrinogen 576.0 mg/dL (238-498) H 10/13/16 06:10 Assessment/Plan Diverticular abscesses s/p percutaneous drainage Complicated sigmoid diverticulitis Fever/leukocytosis- improved Continue zosyn
[2016-10-16] MEDS: ENOXAPARIN NA (PORCINE) 40 MG/0.4 ML DISP.SYRIN SQ SCH (10:34)
[2016-10-16] MEDS: POTASSIUM CHLORIDE 60 MEQ in AMINO ACIDS 4.25%/D5W 1,000 ML IVPB SCH ×2 (10:35→22:06)
--- NOTE | 2016-10-16 10:41 | PN ---
Progress Note (short form) - Note Progress Note: surgery pt seen and examined in the solarium. feels well. minimal pain. no nausea afebrile abd- soft, mild llq tenderness, minimal drain output Plan- cont npo, cont iv abx, cont drains will follow
[2016-10-16] MEDS: FAT EMULSIONS 20% 500 ML PREMIX INFUS.BAG IV SCH (22:00)
[2016-10-17] MEDS: ONDANSETRON 4 MG/2 ML VIAL IVPB PRN ×3 (02:50→17:00)
[2016-10-17] MEDS: METRONIDAZOLE 500 MG PREMIXED 100 ML IVPB SCH ×3 (02:51→17:55)
[2016-10-17] MEDS: PIPERACILLIN/TAZOB 4.5 GM 100 ML IVPB SCH ×4 (03:20→21:01)
[2016-10-17 07:29] LABS: BASOPHIL 0.3 % (0-2.0); EOSINOPHIL 3.9 % (0-4.5); MCH 30.2 pg (25.7-33.7); MEAN CELL VOLUME 88.7 fl (80-96); MEAN PLT VOLUME 9.9 fl (7.5-11.1); NEUTROPHILS 74.5 % (42.8-82.8); PLATELET COUNT 325 K/MM3 (134-434); RDW 12.3 % (11.6-15.6); WHITE BLOOD COUNT 12.6 K/mm3 (4.0-10.0)
[2016-10-17 07:46] LABS: ALBUMIN 2.4 g/dl (3.4-5.0); ANION GAP 11 (8-16); CALCIUM 7.9 mg/dL (8.5-10.1); CO2 24 mmol/L (21-32); GLUCOSE,RANDOM 127 mg/dL (74-106)
[2016-10-17 07:50] LABS: ALK PHOS 40 U/L (45-117); BILIRUBIN,TOTAL 0.3 mg/dL (0.2-1.0); COCKROFT - GAULT 215.9595; CREATININE 0.5 mg/dL (0.55-1.02); SGOT/AST 34 U/L (15-37); SGPT/ALT 29 U/L (12-78); TOT PROT 5.9 g/dl (6.4-8.2)
[2016-10-17 08:17] LABS: C-REACTIVE PROTEIN 5.2 MG/DL (0.00-0.3)
--- NOTE | 2016-10-17 09:35 | PN ---
Progress Note, Physician History of Present Illness: FEELS BETTER NO N/V - Current Medication List Current Medications: Active Medications Acetaminophen (Ofirmev Injection -) 1,000 mg IVPB Q6H PRN PRN Reason: PAIN Last Admin: 10/16/16 21:10 Dose: 1,000 mg Bacitracin (Bacitracin -) 1 applic TP BID PRN Last Admin: 10/13/16 12:01 Dose: 1 applic Docusate Sodium (Colace -) 100 mg PO BID PRN PRN Reason: CONSTIPATION Enoxaparin Sodium (Lovenox -) 40 mg SQ DAILY [facility] Last Admin: 10/16/16 10:34 Dose: 40 mg Fat Emulsion Intravenous (Intralipid -) 500 ml IV DAILY@2200 [facility] Last Admin: 10/16/16 22:00 Dose: 500 ml Piperacillin Sod/Tazobactam Sod (Zosyn 4.5gm Ivpb (Pre-Docked)) 100 mls @ 200 mls/hr IVPB Q6H-IV COLLIN PRN Reason: Protocol Last Admin: 10/17/16 03:20 Dose: 200 mls/hr Metronidazole (Flagyl 500mg Premixed Ivpb -) 100 mls @ 100 mls/hr IVPB Q8H-IV [facility] Last Admin: 10/17/16 02:51 Dose: 100 mls/hr Potassium Chloride 60 meq/ (Amino Acids) 1,030 mls @ 84 mls/hr IVPB Q12H [facility] Last Admin: 10/16/16 22:06 Dose: 84 mls/hr Ondansetron HCl (Zofran Injection) 4 mg IVPB Q4H PRN Last Admin: 10/17/16 09:23 Dose: 4 mg Phenol/Menthol (Chloraseptic -) 2 spray MM Q4H PRN PRN Reason: THROAT IRRITATION Last Admin: 10/12/16 03:00 Dose: 2 spray - Objective Vital Signs: Vital Signs Temperature 98.8 F 10/17/16 06:01 Pulse Rate 78 10/17/16 06:01 Respiratory Rate 20 10/17/16 06:01 Blood Pressure 132/73 10/17/16 06:01 O2 Sat by Pulse Oximetry (%) 95 10/16/16 21:00 Cardiovascular: Yes: Regular Rate and Rhythm Respiratory: Yes: Regular, CTA Bilaterally Gastrointestinal: Yes: Normal Bowel Sounds, Soft, Other (tiffanie drain) Edema: No Labs: CBC, BMP 10/17/16 06:00 10/17/16 06:00 INR, PTT INR 1.38 (0.82-1.09) H 10/15/16 07:00 Fibrinogen 576.0 mg/dL (238-498) H 10/13/16 06:10 Problem List - Problems (1) Diverticulitis of intestine with perforation Assessment/Plan: IV ABX SURGICAL FOLLOW UP NOTED AND APPRECIATED IR --S/P- DRAINAGE FOLLOW LABS Code(s): K57.80 - DVTRCLI OF INTEST, PART UNSP, W PERF AND ABSCESS W/O BLEED (2) Diverticulitis Assessment/Plan: ABOVE Code(s): K57.92 - DVTRCLI OF INTEST, PART UNSP, W/O PERF OR ABSCESS W/O BLEED Qualifiers: Diverticulitis site: large intestine Diverticulitis bleeding: without bleeding Diverticulitis complication: with abscess Qualified Code(s): K57.20 - Diverticulitis of large intestine with perforation and abscess without bleeding (3) Intra-abdominal abscess Assessment/Plan: ABOVE F/U CT SCAN NOTED--2ND DRAIN IN PLACE CT TODAY SURGICAL F/U NOTED Code(s): K65.1 - PERITONEAL ABSCESS (4) Atelectasis Assessment/Plan: INCENTIVE SPIROMETRY PULM Code(s): J98.11 - ATELECTASIS
[2016-10-17] MEDS: POTASSIUM CHLORIDE 60 MEQ in AMINO ACIDS 4.25%/D5W 1,000 ML IVPB SCH ×2 (10:00→21:37)
[2016-10-17] MEDS: ENOXAPARIN NA (PORCINE) 40 MG/0.4 ML DISP.SYRIN SQ SCH (11:24)
--- NOTE | 2016-10-17 11:31 | PN ---
Progress Note (short form) - Note Progress Note: surgery pt seen and examined. feels well. minimal nausea. no pain afebrile abd- soft, mild distension, minimal llq tenderness left drain 26 pus, right drain none. Laboratory Tests 10/16/16 06:00 WBC 11.8 H Plan- cont npo. cont drains. cont iv abx. poss repeat ct wed unless IR needs sooner. Pt wishes to avoid surgery now and colostomy. Pt is non toxic and slowly improving.
--- NOTE | 2016-10-17 12:40 | PN ---
GI Progress Note Subjective: Comfortable-no complaints. Sitting in solarium. Drains functional - Objective Vital Signs: Vital Signs Temperature 98.8 F 10/17/16 06:01 Pulse Rate 78 10/17/16 06:01 Respiratory Rate 20 10/17/16 06:01 Blood Pressure 132/73 10/17/16 06:01 O2 Sat by Pulse Oximetry (%) 95 10/16/16 21:00 Constitutional: Well Nourished, No Distress HENT: Yes: Normocephalic Neck: Yes: Supple Cardiovascular: Yes: Regular Rate and Rhythm Respiratory: Yes: CTA Bilaterally Gastrointestinal Inspection: Yes: WNL, Other (Drains in place) ...Auscultate: Yes: Normoactive Bowel Sounds ...Palpate: Yes: Soft. No: Tenderness Labs: CBC, BMP 10/17/16 06:00 10/17/16 06:00 INR, PTT INR 1.38 (0.82-1.09) H 10/15/16 07:00 Fibrinogen 576.0 mg/dL (238-498) H 10/13/16 06:10 Hepatic Panel Total Bilirubin 0.3 mg/dL (0.2-1.0) D 10/17/16 06:00 AST 34 U/L (15-37) D 10/17/16 06:00 ALT 29 U/L (12-78) D 10/17/16 06:00 Alkaline Phosphatase 40 U/L (45-117) L 10/17/16 06:00 Albumin 2.4 g/dl (3.4-5.0) L 10/17/16 06:00 - ....Imaging Other: Report Reviewed (sinogram) Assessment/Plan Continue present management AbRx as per ID ? pic line with IV AbRx at home vs po Ab
[2016-10-17] MEDS: KCL 10 MEQ IVPB 100 ML IVPB SCH ×2 (13:30→14:27)
[2016-10-17] MEDS: ACETAMINOPHEN 1000 MG/100 ML VIAL (NON FORMULARY) IVPB PRN (20:24)
[2016-10-17] MEDS: FAT EMULSIONS 20% 500 ML PREMIX INFUS.BAG IV SCH (21:39)
[2016-10-18] MEDS: ONDANSETRON 4 MG/2 ML VIAL IVPB PRN ×4 (00:40→22:56)
[2016-10-18] MEDS: METRONIDAZOLE 500 MG PREMIXED 100 ML IVPB SCH ×3 (01:26→18:07)
[2016-10-18] MEDS: PIPERACILLIN/TAZOB 4.5 GM 100 ML IVPB SCH ×4 (02:56→23:08)
[2016-10-18] MEDS: ACETAMINOPHEN 1000 MG/100 ML VIAL (NON FORMULARY) IVPB PRN ×2 (05:37→14:22)
--- NOTE | 2016-10-18 07:43 | PN ---
Progress Note, Physician History of Present Illness: FEELS BETTER NO N/V - Current Medication List Current Medications: Active Medications Acetaminophen (Ofirmev Injection -) 1,000 mg IVPB Q6H PRN PRN Reason: PAIN Last Admin: 10/18/16 05:37 Dose: 1,000 mg Bacitracin (Bacitracin -) 1 applic TP BID PRN Last Admin: 10/13/16 12:01 Dose: 1 applic Docusate Sodium (Colace -) 100 mg PO BID PRN PRN Reason: CONSTIPATION Enoxaparin Sodium (Lovenox -) 40 mg SQ DAILY [facility] Last Admin: 10/17/16 11:24 Dose: 40 mg Fat Emulsion Intravenous (Intralipid -) 500 ml IV DAILY@2200 [facility] Last Admin: 10/17/16 21:39 Dose: Not Given Piperacillin Sod/Tazobactam Sod (Zosyn 4.5gm Ivpb (Pre-Docked)) 100 mls @ 200 mls/hr IVPB Q6H-IV COLLIN PRN Reason: Protocol Last Admin: 10/18/16 02:56 Dose: 200 mls/hr Metronidazole (Flagyl 500mg Premixed Ivpb -) 100 mls @ 100 mls/hr IVPB Q8H-IV [facility] Last Admin: 10/18/16 01:26 Dose: 100 mls/hr Potassium Chloride 60 meq/ (Amino Acids) 1,030 mls @ 84 mls/hr IVPB Q12H [facility] Last Admin: 10/17/16 21:37 Dose: 84 mls/hr Ondansetron HCl (Zofran Injection) 4 mg IVPB Q4H PRN Last Admin: 10/18/16 00:40 Dose: 4 mg Phenol/Menthol (Chloraseptic -) 2 spray MM Q4H PRN PRN Reason: THROAT IRRITATION Last Admin: 10/12/16 03:00 Dose: 2 spray - Objective Vital Signs: Vital Signs Temperature 98.6 F 10/18/16 05:57 Pulse Rate 98 H 10/18/16 05:57 Respiratory Rate 20 10/18/16 05:57 Blood Pressure 125/78 10/18/16 05:57 O2 Sat by Pulse Oximetry (%) 95 10/17/16 20:34 Cardiovascular: Yes: Regular Rate and Rhythm Respiratory: Yes: Regular, CTA Bilaterally Gastrointestinal: Yes: Normal Bowel Sounds, Soft, Tenderness (minimal) Labs: CBC, BMP 10/17/16 06:00 10/17/16 06:00 INR, PTT INR 1.38 (0.82-1.09) H 10/15/16 07:00 Fibrinogen 576.0 mg/dL (238-498) H 10/13/16 06:10 Problem List - Problems (1) Diverticulitis of intestine with perforation Assessment/Plan: IV ABX SURGICAL FOLLOW UP NOTED AND APPRECIATED IR --S/P- DRAINAGE FOLLOW LABS Code(s): K57.80 - DVTRCLI OF INTEST, PART UNSP, W PERF AND ABSCESS W/O BLEED (2) Diverticulitis Assessment/Plan: ABOVE Code(s): K57.92 - DVTRCLI OF INTEST, PART UNSP, W/O PERF OR ABSCESS W/O BLEED Qualifiers: Diverticulitis site: large intestine Diverticulitis bleeding: without bleeding Diverticulitis complication: with abscess Qualified Code(s): K57.20 - Diverticulitis of large intestine with perforation and abscess without bleeding (3) Intra-abdominal abscess Assessment/Plan: ABOVE F/U CT SCAN NOTED--2ND DRAIN IN PLACE CT TODAY SURGICAL F/U NOTED Code(s): K65.1 - PERITONEAL ABSCESS (4) Atelectasis Assessment/Plan: INCENTIVE SPIROMETRY PULM Code(s): J98.11 - ATELECTASIS
[2016-10-18 08:17] LABS: BASOPHIL 0.5 % (0-2.0); EOSINOPHIL 3.2 % (0-4.5); MCH 29.7 pg (25.7-33.7); MCHC 33.2 g/dl (32.0-36.0); MEAN CELL VOLUME 89.5 fl (80-96); MEAN PLT VOLUME 10.2 fl (7.5-11.1); NEUTROPHILS 76.8 % (42.8-82.8); PLATELET COUNT 305 K/MM3 (134-434); RDW 12.4 % (11.6-15.6); WHITE BLOOD COUNT 12.1 K/mm3 (4.0-10.0)
[2016-10-18 08:32] LABS: ALBUMIN 2.6 g/dl (3.4-5.0); ANION GAP 10 (8-16); BILIRUBIN,TOTAL 0.3 mg/dL (0.2-1.0); CO2 23 mmol/L (21-32); COCKROFT - GAULT 215.9595; CREATININE 0.5 mg/dL (0.55-1.02); GLUCOSE,RANDOM 94 mg/dL (74-106); SGOT/AST 65 U/L (15-37); SGPT/ALT 49 U/L (12-78); TOT PROT 6.1 g/dl (6.4-8.2)
[2016-10-18 08:33] LABS: ALK PHOS 42 U/L (45-117)
--- NOTE | 2016-10-18 09:52 | CON.PULM ---
Consult - History of Present Illness History of Present Illness: 31 year old woman with diverticular abscess. Pt smokes 1 PPD cigarettes-stopped on admission. Pt had mild dyspnea in the last several days but currently feels better. No sputum production currently. No history of bronchial asthma or wheezing. No history of hemoptysis or tuberculosis. No chest pain or palpitations. She has had a complicated hospital course requiring multiple admissions for drainage of abdominal abcess. PMH: Mosaic Paulson's Syndrome Myocardial Bridge - Past Medical History Cardio/Vascular: Yes: Other (LAD myocardial bridge) ...LMP: 09/21/16 ...: No Additional Medical History: Mosaic Turners syndrome - Alcohol/Substance Use Hx Alcohol Use: (rare) - Smoking History Smoking history: Current some day smoker Have you smoked in the past 12 months: Yes Aproximately how many cigarettes per day: 20 - Social History Usual Living Arrangement: With Spouse ADL: Independent History of Recent Travel: No Home Medications - Allergies Allergies/Adverse Reactions: Allergies Allergy/AdvReac Type Severity Reaction Status Date / Time No Known Allergies Allergy Verified 10/08/16 13:28 - Home Medications Home Medications: Ambulatory Orders Amoxicillin/Potassium Clav [Augmentin 875-125 Tablet] 1 each PO BID #20 tablet 10/06/16 Review of Systems - Review of Systems Constitutional: denies: Chills, Fever Cardiovascular: denies: Chest Pain, Edema, Palpitations, Shortness of Breath Respiratory: denies: Cough, Orthopnea, Wheezing Gastrointestinal: denies: Abdominal Pain (reduced) Neurological: reports: No Symptoms Physical Exam Vital Sings: Vital Signs Temperature 98.6 F 10/18/16 05:57 Pulse Rate 98 H 10/18/16 05:57 Respiratory Rate 20 10/18/16 05:57 Blood Pressure 125/78 10/18/16 05:57 O2 Sat by Pulse Oximetry (%) 95 10/17/16 20:34 Constitutional: Yes: No Distress Eyes: No: Sclera Icterus HENT: Yes: Atraumatic, Normocephalic Neck: Yes: Supple, Trachea Midline Cardiovascular: Yes: Regular Rate and Rhythm. No: JVD Respiratory: Yes: CTA Bilaterally ...Percussion: No: Dullnes, Hyperresonance Gastrointestinal: Yes: Soft Extremities: No: Calf Tenderness Edema: No Neurological: Yes: Alert, Oriented Labs: CBC, BMP 10/18/16 06:00 10/18/16 06:00 Imaging - Results X-ray: Report Reviewed, Image Reviewed (10/18/2016: left basilar atelectasis/ effusion/infiltrate) Cat Scan: Report Reviewed, Image Reviewed (Ct abdomen 10/12/2016: bibasilar consolidation/atelectasis and small pleural effusions) Problem List - Problems (1) Diverticulitis of intestine with perforation Code(s): K57.80 - DVTRCLI OF INTEST, PART UNSP, W PERF AND ABSCESS W/O BLEED (2) Pneumonia Code(s): J18.9 - PNEUMONIA, UNSPECIFIED ORGANISM (3) Tobacco abuse Code(s): Z72.0 - TOBACCO USE Assessment/Plan 31 year woman with diverticular abscess requiring percutaneous drainage procedures and prolonged hospitalization. Pt. is a smoker without history of prior significant respiratory problems. In hospital she probably developed low grade pneumonia (atelectasis/infiltrate at bases on CT abdomen and CXR). She appears improved from the respiratory point of view. Suggest: Antibiotics per I.D. recommendation Albuterol PRN Baseline spirometry Pt was counseled to continue not to smoke. F/u CXR in several weeks. Thank you for referring this patient for consultation.
[2016-10-18] MEDS: ENOXAPARIN NA (PORCINE) 40 MG/0.4 ML DISP.SYRIN SQ SCH (10:06)
[2016-10-18] MEDS: POTASSIUM CHLORIDE 60 MEQ in AMINO ACIDS 4.25%/D5W 1,000 ML IVPB SCH ×2 (10:40→22:56)
--- NOTE | 2016-10-18 14:12 | PN ---
Progress Note, Physician History of Present Illness: Ambulatory No c/o pain No c/o fever/ chills Afebrile WBC 12 - Current Medication List Current Medications: Active Medications Acetaminophen (Ofirmev Injection -) 1,000 mg IVPB Q6H PRN PRN Reason: PAIN Last Admin: 10/18/16 05:37 Dose: 1,000 mg Bacitracin (Bacitracin -) 1 applic TP BID PRN Last Admin: 10/13/16 12:01 Dose: 1 applic Docusate Sodium (Colace -) 100 mg PO BID PRN PRN Reason: CONSTIPATION Enoxaparin Sodium (Lovenox -) 40 mg SQ DAILY COLLIN Last Admin: 10/18/16 10:06 Dose: 40 mg Fat Emulsion Intravenous (Intralipid -) 500 ml IV DAILY@2200 COLLIN Last Admin: 10/17/16 21:39 Dose: Not Given Piperacillin Sod/Tazobactam Sod (Zosyn 4.5gm Ivpb (Pre-Docked)) 100 mls @ 200 mls/hr IVPB Q6H-IV COLLIN PRN Reason: Protocol Last Admin: 10/18/16 10:40 Dose: 200 mls/hr Metronidazole (Flagyl 500mg Premixed Ivpb -) 100 mls @ 100 mls/hr IVPB Q8H-IV COLLIN Last Admin: 10/18/16 11:48 Dose: 100 mls/hr Potassium Chloride 60 meq/ (Amino Acids) 1,030 mls @ 84 mls/hr IVPB Q12H COLLIN Last Admin: 10/18/16 10:40 Dose: 84 mls/hr Ondansetron HCl (Zofran Injection) 4 mg IVPB Q4H PRN Last Admin: 10/18/16 09:53 Dose: 4 mg Phenol/Menthol (Chloraseptic -) 2 spray MM Q4H PRN PRN Reason: THROAT IRRITATION Last Admin: 10/12/16 03:00 Dose: 2 spray - Objective Vital Signs: Vital Signs Temperature 98.6 F 10/18/16 05:57 Pulse Rate 98 H 10/18/16 05:57 Respiratory Rate 20 10/18/16 05:57 Blood Pressure 125/78 10/18/16 05:57 O2 Sat by Pulse Oximetry (%) 95 10/17/16 20:34 Constitutional: Yes: No Distress Eyes: Yes: Conjunctiva Clear Cardiovascular: Yes: Regular Rate and Rhythm, S1, S2 Respiratory: Yes: CTA Bilaterally Gastrointestinal: Yes: Normal Bowel Sounds, Soft. No: Tenderness Edema: No Labs: CBC, BMP 10/18/16 06:00 10/18/16 06:00 INR, PTT INR 1.38 (0.82-1.09) H 10/15/16 07:00 Fibrinogen 576.0 mg/dL (238-498) H 10/13/16 06:10 Assessment/Plan Diverticular abscesses s/p percutaneous drainage Complicated sigmoid diverticulitis Fever/leukocytosis- improved Continue zosyn
--- NOTE | 2016-10-18 14:43 | PN ---
Progress Note (short form) - Note Progress Note: surgery pt seen and examined. feels a little better. bm but minimal flatus. no nausea afebriel abd- soft, mild distension, tiffanie left with about 15 pus Laboratory Tests 10/18/16 06:00 WBC 12.1 H Plan- clear liquids, cont iv abx. repeat ct WED.
--- NOTE | 2016-10-18 18:31 | PN ---
GI Progress Note Subjective: abdominal pain is less, tolerating clear liquids - Objective Vital Signs: Vital Signs Temperature 97.8 F 10/18/16 14:29 Pulse Rate 72 10/18/16 14:29 Respiratory Rate 20 10/18/16 14:29 Blood Pressure 113/68 10/18/16 14:29 O2 Sat by Pulse Oximetry (%) 97 10/18/16 09:00 Constitutional: Well Nourished Eyes: Yes: Conjunctiva Clear HENT: Yes: Atraumatic Neck: Yes: Supple Cardiovascular: Yes: Regular Rate and Rhythm Respiratory: Yes: CTA Bilaterally Gastrointestinal Inspection: No: Ascites ...Palpate: Yes: Soft, Tenderness (--less llq tenderness). No: Firm/Rigid, Guarding, Hepatomegaly, Mass, Pulsatile Mass, Splenomegaly Labs: CBC, BMP 10/18/16 06:00 10/18/16 06:00 INR, PTT INR 1.38 (0.82-1.09) H 10/15/16 07:00 Fibrinogen 576.0 mg/dL (238-498) H 10/13/16 06:10 Problem List - Problems (1) Intra-abdominal abscess Assessment/Plan: R> continue antibiotics await repeat ct results Code(s): K65.1 - PERITONEAL ABSCESS
[2016-10-18] MEDS ORDERED: PT OWN MED DRAWER 7, Y5N ONE (22:52)
[2016-10-18] MEDS: FAT EMULSIONS 20% 500 ML PREMIX INFUS.BAG IV SCH (22:55)
[2016-10-19] MEDS: ONDANSETRON 4 MG/2 ML VIAL IVPB PRN ×2 (02:27→12:13)
[2016-10-19] MEDS: METRONIDAZOLE 500 MG PREMIXED 100 ML IVPB SCH ×3 (02:27→17:52)
[2016-10-19] MEDS: PIPERACILLIN/TAZOB 4.5 GM 100 ML IVPB SCH ×4 (04:06→20:38)
[2016-10-19] MEDS: ACETAMINOPHEN 1000 MG/100 ML VIAL (NON FORMULARY) IVPB PRN ×2 (04:06→15:57)
--- NOTE | 2016-10-19 07:45 | PN ---
Progress Note, Physician History of Present Illness: FEELS BETTER NO N/V - Current Medication List Current Medications: Active Medications Acetaminophen (Ofirmev Injection -) 1,000 mg IVPB Q6H PRN PRN Reason: PAIN Last Admin: 10/19/16 04:06 Dose: 1,000 mg Bacitracin (Bacitracin -) 1 applic TP BID PRN Last Admin: 10/13/16 12:01 Dose: 1 applic Docusate Sodium (Colace -) 100 mg PO BID PRN PRN Reason: CONSTIPATION Enoxaparin Sodium (Lovenox -) 40 mg SQ DAILY [facility] Last Admin: 10/18/16 10:06 Dose: 40 mg Fat Emulsion Intravenous (Intralipid -) 500 ml IV DAILY@2200 COLLIN Last Admin: 10/18/16 22:55 Dose: 500 ml Piperacillin Sod/Tazobactam Sod (Zosyn 4.5gm Ivpb (Pre-Docked)) 100 mls @ 200 mls/hr IVPB Q6H-IV COLLIN PRN Reason: Protocol Last Admin: 10/19/16 04:06 Dose: 200 mls/hr Potassium Chloride 60 meq/ (Amino Acids) 1,030 mls @ 84 mls/hr IVPB Q12H COLLIN Last Admin: 10/18/16 22:56 Dose: 84 mls/hr Metronidazole (Flagyl 500mg Premixed Ivpb -) 100 mls @ 100 mls/hr IVPB Q8H-IV COLLIN Last Admin: 10/19/16 02:27 Dose: 100 mls/hr Ondansetron HCl (Zofran Injection) 4 mg IVPB Q4H PRN Last Admin: 10/19/16 02:27 Dose: 4 mg Phenol/Menthol (Chloraseptic -) 2 spray MM Q4H PRN PRN Reason: THROAT IRRITATION Last Admin: 10/12/16 03:00 Dose: 2 spray - Objective Vital Signs: Vital Signs Temperature 98.4 F 10/19/16 06:00 Pulse Rate 82 10/19/16 06:00 Respiratory Rate 18 10/19/16 06:00 Blood Pressure 110/65 10/19/16 06:00 O2 Sat by Pulse Oximetry (%) 95 10/18/16 21:00 Cardiovascular: Yes: Regular Rate and Rhythm Respiratory: Yes: Regular, CTA Bilaterally Gastrointestinal: Yes: Normal Bowel Sounds, Soft Labs: CBC, BMP 10/18/16 06:00 10/18/16 06:00 INR, PTT INR 1.38 (0.82-1.09) H 10/15/16 07:00 Fibrinogen 576.0 mg/dL (238-498) H 10/13/16 06:10 Problem List - Problems (1) Diverticulitis of intestine with perforation Assessment/Plan: IV ABX SURGICAL FOLLOW UP NOTED AND APPRECIATED IR --S/P- DRAINAGE FOLLOW LABS CT IN AM ON LIQUIDS Code(s): K57.80 - DVTRCLI OF INTEST, PART UNSP, W PERF AND ABSCESS W/O BLEED (2) Diverticulitis Assessment/Plan: ABOVE Code(s): K57.92 - DVTRCLI OF INTEST, PART UNSP, W/O PERF OR ABSCESS W/O BLEED Qualifiers: Diverticulitis site: large intestine Diverticulitis bleeding: without bleeding Diverticulitis complication: with abscess Qualified Code(s): K57.20 - Diverticulitis of large intestine with perforation and abscess without bleeding (3) Intra-abdominal abscess Assessment/Plan: ABOVE F/U CT SCAN NOTED--2ND DRAIN IN PLACE CT TODAY SURGICAL F/U NOTED Code(s): K65.1 - PERITONEAL ABSCESS (4) Atelectasis Assessment/Plan: INCENTIVE SPIROMETRY PULM Code(s): J98.11 - ATELECTASIS
[2016-10-19 09:02] LABS: BASOPHIL 0.5 % (0-2.0); EOSINOPHIL 3.1 % (0-4.5); MCH 30.4 pg (25.7-33.7); MCHC 34.1 g/dl (32.0-36.0); NEUTROPHILS 73.9 % (42.8-82.8); PLATELET COUNT 370 K/MM3 (134-434); RDW 12.7 % (11.6-15.6); WHITE BLOOD COUNT 12.4 K/mm3 (4.0-10.0)
[2016-10-19 09:39] LABS: ALBUMIN 3.2 g/dl (3.4-5.0); ANION GAP 10 (8-16); CALCIUM 8.6 mg/dL (8.5-10.1); CO2 23 mmol/L (21-32); GLUCOSE,RANDOM 110 mg/dL (74-106)
[2016-10-19 09:48] LABS: ALK PHOS 49 U/L (45-117); BILIRUBIN,TOTAL 0.2 mg/dL (0.2-1.0); CREATININE 0.6 mg/dL (0.55-1.02); SGOT/AST 44 U/L (15-37); SGPT/ALT 54 U/L (12-78); TOT PROT 6.9 g/dl (6.4-8.2)
[2016-10-19] MEDS ORDERED: PT OWN MED DRAWER 7, Y5N ONE (10:04)
[2016-10-19] MEDS: ENOXAPARIN NA (PORCINE) 40 MG/0.4 ML DISP.SYRIN SQ SCH (10:37)
[2016-10-19] MEDS: POTASSIUM CHLORIDE 60 MEQ in AMINO ACIDS 4.25%/D5W 1,000 ML IVPB SCH ×2 (10:38→21:46)
--- NOTE | 2016-10-19 11:57 | PN ---
Progress Note, Physician History of Present Illness: No c/o abdominal pain Ambulatory Afebrile WBC slightly elevated - Current Medication List Current Medications: Active Medications Acetaminophen (Ofirmev Injection -) 1,000 mg IVPB Q6H PRN PRN Reason: PAIN Last Admin: 10/19/16 04:06 Dose: 1,000 mg Bacitracin (Bacitracin -) 1 applic TP BID PRN Last Admin: 10/13/16 12:01 Dose: 1 applic Docusate Sodium (Colace -) 100 mg PO BID PRN PRN Reason: CONSTIPATION Enoxaparin Sodium (Lovenox -) 40 mg SQ DAILY [facility] Last Admin: 10/19/16 10:37 Dose: 40 mg Fat Emulsion Intravenous (Intralipid -) 500 ml IV DAILY@2200 COLLIN Last Admin: 10/18/16 22:55 Dose: 500 ml Piperacillin Sod/Tazobactam Sod (Zosyn 4.5gm Ivpb (Pre-Docked)) 100 mls @ 200 mls/hr IVPB Q6H-IV OCLLIN PRN Reason: Protocol Last Admin: 10/19/16 10:40 Dose: 200 mls/hr Potassium Chloride 60 meq/ (Amino Acids) 1,030 mls @ 84 mls/hr IVPB Q12H COLLIN Last Admin: 10/19/16 10:38 Dose: 84 mls/hr Metronidazole (Flagyl 500mg Premixed Ivpb -) 100 mls @ 100 mls/hr IVPB Q8H-IV COLLIN Last Admin: 10/19/16 10:39 Dose: 100 mls/hr Ondansetron HCl (Zofran Injection) 4 mg IVPB Q4H PRN Last Admin: 10/19/16 02:27 Dose: 4 mg Phenol/Menthol (Chloraseptic -) 2 spray MM Q4H PRN PRN Reason: THROAT IRRITATION Last Admin: 10/12/16 03:00 Dose: 2 spray - Objective Vital Signs: Vital Signs Temperature 98.4 F 10/19/16 06:00 Pulse Rate 82 10/19/16 06:00 Respiratory Rate 18 10/19/16 06:00 Blood Pressure 110/65 10/19/16 06:00 O2 Sat by Pulse Oximetry (%) 95 10/18/16 21:00 Constitutional: Yes: No Distress Eyes: Yes: Conjunctiva Clear HENT: Yes: Atraumatic Cardiovascular: Yes: Regular Rate and Rhythm, S1, S2 Respiratory: Yes: CTA Bilaterally Gastrointestinal: Yes: Normal Bowel Sounds, Soft, Other (minimal drainage in FRANK) . No: Tenderness Edema: LLE: 1+, RLE: 1+ Labs: CBC, BMP 10/19/16 08:20 10/19/16 08:20 INR, PTT INR 1.38 (0.82-1.09) H 10/15/16 07:00 Fibrinogen 576.0 mg/dL (238-498) H 10/13/16 06:10 Assessment/Plan Diverticular abscesses s/p percutaneous drainage Complicated sigmoid diverticulitis Fever/leukocytosis- improved Continue zosyn For follow up CT am
--- NOTE | 2016-10-19 13:26 | PN ---
Progress Note (short form) - Note Progress Note: surgery pt seen and examined. feels well. tolerating clear liquids. bm but minimal flatus. no nausea afebrile abd- soft, mild distension, tiffanie left with 7 pus/stool Laboratory Tests 10/19/16 08:20 WBC 12.4 H Plan- full liquids, cont iv abx. consider stopping tpn, repeat ct tomorrow. will get triple contrast to evaluate for fistula.
[2016-10-19 13:59] LABS: ERYTHROCYTE SEDIMENTATION RATE 52 mm/hr (0-20)
[2016-10-19] MEDS ORDERED: ALPRAZolam 0.25 MG TABLET PO ONE (20:30)
[2016-10-19] MEDS: FAT EMULSIONS 20% 500 ML PREMIX INFUS.BAG IV SCH (21:46)
[2016-10-20] MEDS: ACETAMINOPHEN 1000 MG/100 ML VIAL (NON FORMULARY) IVPB PRN ×2 (01:09→16:30)
[2016-10-20] MEDS: ONDANSETRON 4 MG/2 ML VIAL IVPB PRN ×2 (01:50→12:25)
[2016-10-20] MEDS: METRONIDAZOLE 500 MG PREMIXED 100 ML IVPB SCH ×2 (01:50→09:56)
[2016-10-20] MEDS: PIPERACILLIN/TAZOB 4.5 GM 100 ML IVPB SCH ×4 (03:57→20:57)
[2016-10-20 07:30] LABS: BASOPHIL 0.5 % (0-2.0); EOSINOPHIL 3.3 % (0-4.5); MCH 31.1 pg (25.7-33.7); MCHC 35.1 g/dl (32.0-36.0); MEAN CELL VOLUME 88.5 fl (80-96); MEAN PLT VOLUME 10.1 fl (7.5-11.1); NEUTROPHILS 73.6 % (42.8-82.8); PLATELET COUNT 369 K/MM3 (134-434); RDW 12.4 % (11.6-15.6); WHITE BLOOD COUNT 14.5 K/mm3 (4.0-10.0)
[2016-10-20 07:42] LABS: ANION GAP 9 (8-16); CALCIUM 8.5 mg/dL (8.5-10.1); CO2 25 mmol/L (21-32); GLUCOSE,RANDOM 102 mg/dL (74-106)
[2016-10-20 07:45] LABS: ALK PHOS 49 U/L (45-117); BILIRUBIN,TOTAL 0.3 mg/dL (0.2-1.0); CREATININE 0.7 mg/dL (0.55-1.02); SGOT/AST 25 U/L (15-37); SGPT/ALT 41 U/L (12-78); TOT PROT 6.9 g/dl (6.4-8.2)
[2016-10-20] MEDS: ENOXAPARIN NA (PORCINE) 40 MG/0.4 ML DISP.SYRIN SQ SCH (09:56)
[2016-10-20] MEDS ORDERED: ALPRAZolam 0.25 MG TABLET PO ONE (10:00)
--- NOTE | 2016-10-20 11:11 | PN ---
Progress Note, Physician History of Present Illness: FEELS BETTER NO N/V - Current Medication List Current Medications: Active Medications Acetaminophen (Ofirmev Injection -) 1,000 mg IVPB Q6H PRN PRN Reason: PAIN Last Admin: 10/20/16 01:09 Dose: 1,000 mg Bacitracin (Bacitracin -) 1 applic TP BID PRN Last Admin: 10/13/16 12:01 Dose: 1 applic Docusate Sodium (Colace -) 100 mg PO BID PRN PRN Reason: CONSTIPATION Enoxaparin Sodium (Lovenox -) 40 mg SQ DAILY COLLIN Last Admin: 10/20/16 09:56 Dose: 40 mg Fat Emulsion Intravenous (Intralipid -) 500 ml IV DAILY@2200 COLLIN Last Admin: 10/19/16 21:46 Dose: 500 ml Piperacillin Sod/Tazobactam Sod (Zosyn 4.5gm Ivpb (Pre-Docked)) 100 mls @ 200 mls/hr IVPB Q6H-IV COLLIN PRN Reason: Protocol Last Admin: 10/20/16 09:54 Dose: 200 mls/hr Potassium Chloride 60 meq/ (Amino Acids) 1,030 mls @ 84 mls/hr IVPB Q12H COLLIN Last Admin: 10/19/16 21:46 Dose: 84 mls/hr Metronidazole (Flagyl 500mg Premixed Ivpb -) 100 mls @ 100 mls/hr IVPB Q8H-IV COLLIN Last Admin: 10/20/16 09:56 Dose: 100 mls/hr Ondansetron HCl (Zofran Injection) 4 mg IVPB Q4H PRN Last Admin: 10/20/16 01:50 Dose: 4 mg Phenol/Menthol (Chloraseptic -) 2 spray MM Q4H PRN PRN Reason: THROAT IRRITATION Last Admin: 10/12/16 03:00 Dose: 2 spray - Objective Vital Signs: Vital Signs Temperature 97.2 F L 10/20/16 10:00 Pulse Rate 82 10/20/16 10:00 Respiratory Rate 20 10/20/16 10:00 Blood Pressure 110/72 10/20/16 10:00 O2 Sat by Pulse Oximetry (%) 98 10/20/16 09:00 Respiratory: Yes: Regular, CTA Bilaterally Gastrointestinal: Yes: Normal Bowel Sounds, Soft, Tenderness (MINMLA RT FLANK AND LLQ) Labs: CBC, BMP 10/20/16 06:00 10/20/16 06:00 INR, PTT INR 1.38 (0.82-1.09) H 10/15/16 07:00 Fibrinogen 576.0 mg/dL (238-498) H 10/13/16 06:10 Problem List - Problems (1) Diverticulitis of intestine with perforation Assessment/Plan: IV ABX SURGICAL FOLLOW UP NOTED AND APPRECIATED IR --S/P- DRAINAGE FOLLOW LABS CT TODAY ON LIQUIDS Code(s): K57.80 - DVTRCLI OF INTEST, PART UNSP, W PERF AND ABSCESS W/O BLEED (2) Diverticulitis Assessment/Plan: ABOVE Code(s): K57.92 - DVTRCLI OF INTEST, PART UNSP, W/O PERF OR ABSCESS W/O BLEED Qualifiers: Diverticulitis site: large intestine Diverticulitis bleeding: without bleeding Diverticulitis complication: with abscess Qualified Code(s): K57.20 - Diverticulitis of large intestine with perforation and abscess without bleeding (3) Intra-abdominal abscess Assessment/Plan: ABOVE F/U CT SCAN NOTED--2ND DRAIN IN PLACE CT TODAY SURGICAL F/U NOTED Code(s): K65.1 - PERITONEAL ABSCESS (4) Atelectasis Assessment/Plan: INCENTIVE SPIROMETRY PULM Code(s): J98.11 - ATELECTASIS
--- NOTE | 2016-10-20 11:55 | PN ---
Progress Note (short form) - Note Progress Note: surgery pt seen and examined. feels well. no pain. tolerating full liquids. afebrile ct triple contrast with improved right and left collection, few persistent droplets of air around left catheter and no extravasation of contrast. abd- soft, nt tiffanie left 15 feculent, right none Plan- advance to low fiber diet. cont abx. follow wbc. cont drains. Pt clinically improving despite wbc. Ct confirms imrovement. suspect small fistula. Possible d/c later this week with left drain if continues to improve.
[2016-10-20] MEDS: POTASSIUM CHLORIDE 60 MEQ in AMINO ACIDS 4.25%/D5W 1,000 ML IVPB SCH (12:33)
[2016-10-20 14:19] LABS: BASOPHIL 0.5 % (0-2.0); EOSINOPHIL 4.5 % (0-4.5); MCH 30.1 pg (25.7-33.7); MCHC 34.2 g/dl (32.0-36.0); MEAN CELL VOLUME 88.1 fl (80-96); MEAN PLT VOLUME 10.1 fl (7.5-11.1); NEUTROPHILS 69.9 % (42.8-82.8); PLATELET COUNT 360 K/MM3 (134-434); RDW 12.4 % (11.6-15.6); WHITE BLOOD COUNT 14.1 K/mm3 (4.0-10.0)
[2016-10-20 16:36] LABS: ERYTHROCYTE SEDIMENTATION RATE 61 mm/hr (0-20)
--- NOTE | 2016-10-20 18:02 | PN ---
Progress Note, Physician History of Present Illness: No dysnea or cough. No sputum. - Current Medication List Current Medications: Active Medications Acetaminophen (Ofirmev Injection -) 1,000 mg IVPB Q6H PRN PRN Reason: PAIN Last Admin: 10/20/16 16:30 Dose: 1,000 mg Alprazolam (Xanax -) 0.5 mg PO Q8H PRN PRN Reason: ANXIETY Bacitracin (Bacitracin -) 1 applic TP BID PRN Last Admin: 10/13/16 12:01 Dose: 1 applic Docusate Sodium (Colace -) 100 mg PO BID PRN PRN Reason: CONSTIPATION Enoxaparin Sodium (Lovenox -) 40 mg SQ DAILY [facility]LLIN Last Admin: 10/20/16 09:56 Dose: 40 mg Escitalopram Oxalate (Lexapro -) 10 mg PO DAILY COLLIN Piperacillin Sod/Tazobactam Sod (Zosyn 4.5gm Ivpb (Pre-Docked)) 100 mls @ 200 mls/hr IVPB Q6H-IV COLLIN PRN Reason: Protocol Last Admin: 10/20/16 14:51 Dose: 200 mls/hr Ondansetron HCl (Zofran Injection) 4 mg IVPB Q4H PRN Last Admin: 10/20/16 12:25 Dose: 4 mg Phenol/Menthol (Chloraseptic -) 2 spray MM Q4H PRN PRN Reason: THROAT IRRITATION Last Admin: 10/12/16 03:00 Dose: 2 spray - Objective Vital Signs: Vital Signs Temperature 98.2 F 10/20/16 14:16 Pulse Rate 90 10/20/16 14:16 Respiratory Rate 20 10/20/16 14:16 Blood Pressure 106/59 10/20/16 14:16 O2 Sat by Pulse Oximetry (%) 98 10/20/16 09:00 Constitutional: Yes: No Distress Eyes: No: Sclera Icterus HENT: Yes: Atraumatic, Normocephalic Neck: Yes: Supple, Trachea Midline Cardiovascular: Yes: Regular Rate and Rhythm. No: JVD Respiratory: Yes: Rales (few rales at bases) Gastrointestinal: Yes: Soft. No: Tenderness Edema: No Neurological: Yes: Alert, Oriented Labs: CBC, BMP 10/20/16 13:31 10/20/16 06:00 INR, PTT INR 1.38 (0.82-1.09) H 10/15/16 07:00 Fibrinogen 576.0 mg/dL (238-498) H 10/13/16 06:10 Problem List - Problems (1) Diverticulitis of intestine with perforation Code(s): K57.80 - DVTRCLI OF INTEST, PART UNSP, W PERF AND ABSCESS W/O BLEED (2) Pneumonia Code(s): J18.9 - PNEUMONIA, UNSPECIFIED ORGANISM (3) Tobacco abuse Code(s): Z72.0 - TOBACCO USE Assessment/Plan 31 year woman with diverticular abscess requiring percutaneous drainage procedures and prolonged hospitalization. Pt. is a smoker without history of prior significant respiratory problems. In hospital she probably developed low grade pneumonia (atelectasis/infiltrate at bases on CT abdomen and CXR). Dyspnea and pneumonia improvd improved. CT Abd.: atelectasis/infiltrate at bases with small pleural effusons. Surgical note appreciated. Suggest: Antibiotics per I.D. recommendation Albuterol PRN
[2016-10-21] MEDS: PIPERACILLIN/TAZOB 4.5 GM 100 ML IVPB SCH ×4 (02:32→21:51)
[2016-10-21] MEDS: ACETAMINOPHEN 1000 MG/100 ML VIAL (NON FORMULARY) IVPB PRN (06:30)
[2016-10-21 07:06] LABS: BASOPHIL 0.6 % (0-2.0); EOSINOPHIL 5.2 % (0-4.5); MCH 29.9 pg (25.7-33.7); NEUTROPHILS 67.1 % (42.8-82.8); PLATELET COUNT 337 K/MM3 (134-434); RDW 12.2 % (11.6-15.6); WHITE BLOOD COUNT 11.1 K/mm3 (4.0-10.0)
--- NOTE | 2016-10-21 07:22 | PN ---
Progress Note, Physician History of Present Illness: FEELS BETTER NO N/V - Current Medication List Current Medications: Active Medications Acetaminophen (Ofirmev Injection -) 1,000 mg IVPB Q6H PRN PRN Reason: PAIN Last Admin: 10/21/16 06:30 Dose: 1,000 mg Alprazolam (Xanax -) 0.5 mg PO Q8H PRN PRN Reason: ANXIETY Bacitracin (Bacitracin -) 1 applic TP BID PRN Last Admin: 10/13/16 12:01 Dose: 1 applic Docusate Sodium (Colace -) 100 mg PO BID PRN PRN Reason: CONSTIPATION Enoxaparin Sodium (Lovenox -) 40 mg SQ DAILY [facility]IN Last Admin: 10/20/16 09:56 Dose: 40 mg Escitalopram Oxalate (Lexapro -) 10 mg PO DAILY COLLIN Piperacillin Sod/Tazobactam Sod (Zosyn 4.5gm Ivpb (Pre-Docked)) 100 mls @ 200 mls/hr IVPB Q6H-IV COLLIN PRN Reason: Protocol Last Admin: 10/21/16 02:32 Dose: 200 mls/hr Ondansetron HCl (Zofran Injection) 4 mg IVPB Q4H PRN Last Admin: 10/20/16 12:25 Dose: 4 mg Phenol/Menthol (Chloraseptic -) 2 spray MM Q4H PRN PRN Reason: THROAT IRRITATION Last Admin: 10/12/16 03:00 Dose: 2 spray - Objective Vital Signs: Vital Signs Temperature 98.2 F 10/21/16 06:00 Pulse Rate 72 10/21/16 06:00 Respiratory Rate 20 10/21/16 06:00 Blood Pressure 113/57 10/21/16 06:00 O2 Sat by Pulse Oximetry (%) 98 10/20/16 21:00 Cardiovascular: Yes: Regular Rate and Rhythm Respiratory: Yes: Regular, CTA Bilaterally Gastrointestinal: Yes: Tenderness (MINIMAL) Labs: CBC, BMP 10/21/16 06:00 INR, PTT INR 1.38 (0.82-1.09) H 10/15/16 07:00 Fibrinogen 576.0 mg/dL (238-498) H 10/13/16 06:10 Problem List - Problems (1) Diverticulitis of intestine with perforation Assessment/Plan: IV ABX SURGICAL FOLLOW UP NOTED AND APPRECIATED IR --S/P- DRAINAGE FOLLOW LABS CT NOTED AND D/W PT--ID FOLLOW UP ON LIQUIDS Code(s): K57.80 - DVTRCLI OF INTEST, PART UNSP, W PERF AND ABSCESS W/O BLEED (2) Diverticulitis Assessment/Plan: ABOVE Code(s): K57.92 - DVTRCLI OF INTEST, PART UNSP, W/O PERF OR ABSCESS W/O BLEED Qualifiers: Diverticulitis site: large intestine Diverticulitis bleeding: without bleeding Diverticulitis complication: with abscess Qualified Code(s): K57.20 - Diverticulitis of large intestine with perforation and abscess without bleeding (3) Intra-abdominal abscess Assessment/Plan: ABOVE F/U CT SCAN NOTED--2ND DRAIN IN PLACE CT TODAY SURGICAL F/U NOTED Code(s): K65.1 - PERITONEAL ABSCESS (4) Atelectasis Assessment/Plan: INCENTIVE SPIROMETRY PULM Code(s): J98.11 - ATELECTASIS
[2016-10-21 07:52] LABS: ALK PHOS 51 U/L (45-117); ANION GAP 9 (8-16); BILIRUBIN,TOTAL 0.3 mg/dL (0.2-1.0); CALCIUM 8.7 mg/dL (8.5-10.1); CO2 27 mmol/L (21-32); CREATININE 0.7 mg/dL (0.55-1.02); GLUCOSE,RANDOM 98 mg/dL (74-106); SGOT/AST 18 U/L (15-37); SGPT/ALT 30 U/L (12-78); TOT PROT 6.8 g/dl (6.4-8.2)
[2016-10-21] MEDS: ESCITALOPRAM OXALATE 10 MG TABLET (FP) PO SCH (09:51)
[2016-10-21] MEDS: ENOXAPARIN NA (PORCINE) 40 MG/0.4 ML DISP.SYRIN SQ SCH (09:51)
--- NOTE | 2016-10-21 10:59 | PN ---
Progress Note (short form) - Note Progress Note: surgery pt seen and examined. feels much better. tolerating solid food. normal bms. afebrile abd- soft, minimal lower abd tenderness around drain on left Laboratory Tests 10/20/16 10/21/16 06:00 06:00 WBC 14.5 H 11.1 H Plan- complicated diverticulitis, suspect small fistula not demonstrated on ct. consider discharge tomorrow on po augmentin 875 bid if ok with ID. would repeat ct in about 2 weeks with oral and iv contrast to evaluate for stoppage of abx. cont left drain, +/- right drain. Pt is non toxic.
--- NOTE | 2016-10-21 11:45 | PN ---
Progress Note, Physician History of Present Illness: OOB in chair No c/o abdominal pain Tolerating diet No fever/ chills CT scans reviewed with radiologist - Current Medication List Current Medications: Active Medications Acetaminophen (Ofirmev Injection -) 1,000 mg IVPB Q6H PRN PRN Reason: PAIN Last Admin: 10/21/16 06:30 Dose: 1,000 mg Alprazolam (Xanax -) 0.5 mg PO Q8H PRN PRN Reason: ANXIETY Bacitracin (Bacitracin -) 1 applic TP BID PRN Last Admin: 10/13/16 12:01 Dose: 1 applic Docusate Sodium (Colace -) 100 mg PO BID PRN PRN Reason: CONSTIPATION Escitalopram Oxalate (Lexapro -) 10 mg PO DAILY [facility] Last Admin: 10/21/16 09:51 Dose: 10 mg Piperacillin Sod/Tazobactam Sod (Zosyn 4.5gm Ivpb (Pre-Docked)) 100 mls @ 200 mls/hr IVPB Q6H-IV COLLIN PRN Reason: Protocol Last Admin: 10/21/16 09:50 Dose: 200 mls/hr Ondansetron HCl (Zofran Injection) 4 mg IVPB Q4H PRN Last Admin: 10/20/16 12:25 Dose: 4 mg Phenol/Menthol (Chloraseptic -) 2 spray MM Q4H PRN PRN Reason: THROAT IRRITATION Last Admin: 10/12/16 03:00 Dose: 2 spray - Objective Vital Signs: Vital Signs Temperature 98.2 F 10/21/16 06:00 Pulse Rate 72 10/21/16 06:00 Respiratory Rate 20 10/21/16 06:00 Blood Pressure 113/57 10/21/16 06:00 O2 Sat by Pulse Oximetry (%) 98 10/20/16 21:00 Constitutional: Yes: No Distress Eyes: Yes: Conjunctiva Clear Cardiovascular: Yes: Regular Rate and Rhythm, S1, S2 Respiratory: Yes: CTA Bilaterally Gastrointestinal: Yes: Normal Bowel Sounds, Soft, Other (drains in place). No: Tenderness Edema: No Labs: CBC, BMP 10/21/16 06:00 10/21/16 06:00 INR, PTT INR 1.38 (0.82-1.09) H 10/15/16 07:00 Fibrinogen 576.0 mg/dL (238-498) H 10/13/16 06:10 Assessment/Plan Diverticular abscesses s/p percutaneous drainage Complicated sigmoid diverticulitis Fever/leukocytosis- improved Continue zon PICC for outpatient therapy Ertapenem 1gmIVPB q24h
[2016-10-21] MEDS ORDERED: PICC LINE 8 ML FLUSH PROTOCOL IVPUSH PRN (11:46)
[2016-10-21] MEDS: ALPRAZolam 0.25 MG TABLET PO PRN (21:51)
[2016-10-22] MEDS: PIPERACILLIN/TAZOB 4.5 GM 100 ML IVPB SCH ×3 (02:30→15:07)
--- NOTE | 2016-10-22 07:36 | DS ---
Physical Examination Vital Signs: Vital Signs Temperature 98.2 F 10/22/16 05:41 Pulse Rate 85 10/22/16 05:41 Respiratory Rate 20 10/22/16 05:41 Blood Pressure 108/64 10/22/16 05:41 O2 Sat by Pulse Oximetry (%) 96 10/21/16 21:00 Constitutional: Yes: Calm Neck: Yes: WNL Cardiovascular: Yes: WNL Respiratory: Yes: WNL Gastrointestinal: Yes: WNL Edema: No Labs: CBC, BMP 10/21/16 06:00 10/21/16 06:00 Discharge Summary Reason For Visit: DIVRTICULITIS OF INTESTINE Current Active Problems Atelectasis (Acute) Diverticulitis (Acute) Intra-abdominal abscess (Acute) Pneumonia (Acute) Hospital Course: (1) Diverticulitis of intestine with perforation Assessment/Plan: IV ABX SURGICAL FOLLOW UP NOTED AND APPRECIATED IR --S/P- DRAINAGE FOLLOW LABS CT NOTED AND D/W PT--ID FOLLOW UP ON LIQUIDS Code(s): K57.80 - DVTRCLI OF INTEST, PART UNSP, W PERF AND ABSCESS W/O BLEED (2) Diverticulitis Assessment/Plan: ABOVE Code(s): K57.92 - DVTRCLI OF INTEST, PART UNSP, W/O PERF OR ABSCESS W/O BLEED Qualifiers: Diverticulitis site: large intestine Diverticulitis bleeding: without bleeding Diverticulitis complication: with abscess Qualified Code(s): K57.20 - Diverticulitis of large intestine with perforation and abscess without bleeding (3) Intra-abdominal abscess Assessment/Plan: ABOVE F/U CT SCAN NOTED--2ND DRAIN IN PLACE CT TODAY SURGICAL F/U NOTED Code(s): K65.1 - PERITONEAL ABSCESS (4) Atelectasis Assessment/Plan: INCENTIVE SPIROMETRY PULM Code(s): J98.11 - ATELECTASIS DISCHARGE WITH PICC LINE & HOME SERVICES FOR IV ABx NEED ID CLEARANCE DURATION OF Ertapenem 1gmIVPB q24h? [employer] [facility] Condition: Good - Instructions Referrals: Jacquie Moscoso MD [Primary Care Provider] - Disposition: HOME - Home Medications Comprehensive Discharge Medication List: Ambulatory Orders Amoxicillin/Potassium Clav [Augmentin 875-125 Tablet] 1 each PO BID #20 tablet 10/06/16
[2016-10-22 08:59] LABS: BASOPHIL 0.7 % (0-2.0); EOSINOPHIL 4.7 % (0-4.5); MCH 30.6 pg (25.7-33.7); MCHC 34.4 g/dl (32.0-36.0); MEAN PLT VOLUME 9.5 fl (7.5-11.1); NEUTROPHILS 68.3 % (42.8-82.8); PLATELET COUNT 381 K/MM3 (134-434); RDW 12.5 % (11.6-15.6)
[2016-10-22] MEDS: ALPRAZolam 0.25 MG TABLET PO PRN (09:10)
[2016-10-22] MEDS: ESCITALOPRAM OXALATE 10 MG TABLET (FP) PO SCH (09:10)
[2016-10-22 09:26] LABS: ALBUMIN 3.4 g/dl (3.4-5.0); ALK PHOS 59 U/L (45-117); ANION GAP 9 (8-16); BILIRUBIN,TOTAL 0.3 mg/dL (0.2-1.0); CALCIUM 8.9 mg/dL (8.5-10.1); CO2 27 mmol/L (21-32); CREATININE 0.7 mg/dL (0.55-1.02); GLUCOSE,RANDOM 117 mg/dL (74-106); SGOT/AST 16 U/L (15-37); SGPT/ALT 30 U/L (12-78); TOT PROT 7.5 g/dl (6.4-8.2)
--- NOTE | 2016-10-22 11:25 | PN ---
Progress Note, Physician History of Present Illness: No c/o abdominal pain No fever/ chills Afebrile WBC WNL - Current Medication List Current Medications: Active Medications Acetaminophen (Ofirmev Injection -) 1,000 mg IVPB Q6H PRN PRN Reason: PAIN Last Admin: 10/21/16 06:30 Dose: 1,000 mg Alprazolam (Xanax -) 0.5 mg PO Q8H PRN PRN Reason: ANXIETY Last Admin: 10/22/16 09:10 Dose: 0.5 mg Bacitracin (Bacitracin -) 1 applic TP BID PRN Last Admin: 10/13/16 12:01 Dose: 1 applic Docusate Sodium (Colace -) 100 mg PO BID PRN PRN Reason: CONSTIPATION Escitalopram Oxalate (Lexapro -) 10 mg PO DAILY COLLIN Last Admin: 10/22/16 09:10 Dose: 10 mg IV Flush (Picc Line Flush) 8 ml IVPUSH PRN PRN PRN Reason: Protocol Piperacillin Sod/Tazobactam Sod (Zosyn 4.5gm Ivpb (Pre-Docked)) 100 mls @ 200 mls/hr IVPB Q6H-IV COLLIN PRN Reason: Protocol Last Admin: 10/22/16 09:10 Dose: 200 mls/hr Ondansetron HCl (Zofran Injection) 4 mg IVPB Q4H PRN Last Admin: 10/20/16 12:25 Dose: 4 mg Phenol/Menthol (Chloraseptic -) 2 spray MM Q4H PRN PRN Reason: THROAT IRRITATION Last Admin: 10/12/16 03:00 Dose: 2 spray - Objective Vital Signs: Vital Signs Temperature 98.2 F 10/22/16 05:41 Pulse Rate 85 10/22/16 05:41 Respiratory Rate 20 10/22/16 05:41 Blood Pressure 108/64 10/22/16 05:41 O2 Sat by Pulse Oximetry (%) 96 10/21/16 21:00 Constitutional: Yes: No Distress Eyes: Yes: Conjunctiva Clear Cardiovascular: Yes: Regular Rate and Rhythm, S1, S2 Respiratory: Yes: CTA Bilaterally Gastrointestinal: Yes: Normal Bowel Sounds, Soft. No: Tenderness Labs: CBC, BMP 10/22/16 08:50 10/22/16 08:50 INR, PTT INR 1.38 (0.82-1.09) H 10/15/16 07:00 Fibrinogen 576.0 mg/dL (238-498) H 10/13/16 06:10 Assessment/Plan Diverticular abscesses s/p percutaneous drainage Complicated sigmoid diverticulitis Fever/leukocytosis- resolved PICC for outpatient therapy Ertapenem 1gmIVPB q24h x2w Follow up in office 1 week
[2016-10-22 15:21] VITALS: BP 104/70; PULSE 78; TEMP 97.2
== END 2016-10-22 16:30 | disposition home or self-care (01) | DRG 391 ==
LOC: JER 13:18 → JERBED 18:38 → J7W 10-09 08:06
PROVIDERS: ADMIT Family Medicine; ATTEND Family Medicine
PROC: 30233K1 Transfusion of Nonautologous Frozen Plasma into Peripheral Vein, Percutaneous Approach (ICD-10-PCS; 2016-10-10)
PROC: 0W9G30Z Drainage of Peritoneal Cavity with Drainage Device, Percutaneous Approach (ICD-10-PCS; principal; 2016-10-11)
PROC: 0W9G3ZX Drainage of Peritoneal Cavity, Percutaneous Approach, Diagnostic (ICD-10-PCS; 2016-10-12)
PROC: 05HM33Z Insertion of Infusion Device into Right Internal Jugular Vein, Percutaneous Approach (ICD-10-PCS; 2016-10-13)
PROC: B543ZZA Ultrasonography of Right Jugular Veins, Guidance (ICD-10-PCS; 2016-10-13)
PROC: BW11YZZ Fluoroscopy of Abdomen and Pelvis using Other Contrast (ICD-10-PCS; 2016-10-15)
PROC: 02HV33Z Insertion of Infusion Device into Superior Vena Cava, Percutaneous Approach (ICD-10-PCS; 2016-10-22)
PROC: B548ZZA Ultrasonography of Superior Vena Cava, Guidance (ICD-10-PCS; 2016-10-22)
PROC: BW11YZZ Fluoroscopy of Abdomen and Pelvis using Other Contrast (ICD-10-PCS; 2016-10-22)
DX: K57.20 Diverticulitis of large intestine with perforation and abscess without bleeding (principal); J18.9 Pneumonia, unspecified organism; J98.11 Atelectasis; J91.8 Pleural effusion in other conditions classified elsewhere; F17.210 Nicotine dependence, cigarettes, uncomplicated; E66.9 Obesity, unspecified; Z68.36 Body mass index [BMI] 36.0-36.9, adult; Z71.3 Dietary counseling and surveillance; R79.1 Abnormal coagulation profile; E56.1 Deficiency of vitamin K; E87.6 Hypokalemia; Q96.9 Turner's syndrome, unspecified; B95.4 Other streptococcus as the cause of diseases classified elsewhere; B96.20 Unspecified Escherichia coli [E. coli] as the cause of diseases classified elsewhere
CPT/HCPCS: 36415; 36430; 36556; 36569; 49406; 49407; 49424; 71010-TC; 71020-TC; 74176-TC; 74177-TC; 75984-TC; 76080-TC; 77001-TC; 80048; 80053; 81003; 81015; 83605; 84703; 85025; 85384; 85610; 85651; 85730; 86140; 87040; 87070; 87075; 87077; 87086; 87186; 87205; 94010; 99285-25; C1729; C1751; C1769; P9017; Q9967

== ENCOUNTER 2023-03-17 05:11 | Day surgery (SDC) | payer BC ==
[2023-03-16 11:20] VITALS: BMI 44.2
[2023-03-17] MEDS ORDERED: KETOROLAC TROMETHAMINE 30 MG/1 ML VIAL ONE (09:43)
[2023-03-17] MEDS ORDERED: LIDOCAINE HCL 2% JELLY 11 ML TP ONE (09:43)
[2023-03-17 10:32] VITALS: TEMP 97.8
[2023-03-17 11:02] VITALS: RESP 16
[2023-03-17 11:03] VITALS: BP 110/67; PULSE 70
== END 2023-03-17 11:10 | disposition home or self-care (01) ==
LOC: JASU-ENDO 05:11
PROVIDERS: ATTEND Internal Medicine Gastroenterology
PROC: 0DJD8ZZ Inspection of Lower Intestinal Tract, Via Natural or Artificial Opening Endoscopic (ICD-10-PCS; principal; 2023-03-17 09:30)
DX: Z98.0 Intestinal bypass and anastomosis status (principal); K92.1 Melena
CPT/HCPCS: 81025